=== PATIENT | male | born 1945 | race Caucasian/White ===

== ENCOUNTER 2016-08-28 13:56 | Emergency (ER) | payer MEDICARE, OTHER ==
[2016-08-28 14:33] LABS: BASOPHILS 0.1 % (0.0-2.0); EOSINOPHILS 1.8 % (0-7); HEMATOCRIT 45.7 % (42.0-54.0); HEMOGLOBIN 15.6 g/dL (13.5-17.5); IMMATURE GRANULOCYTES 0.2 % (0-5); LYMPHOCYTES 11.3 % (15-50); MCH 32.6 pg (26.0-34.0); MCHC 34.1 g/dL (31.0-37.0); MCV 95.6 fL (80.0-100.0); MEAN PLATELET VOLUME 10.4 fL (7.4-10.4); MONOCYTES 7.3 % (2-11); NEUTROPHILS 79.3 % (40-80); PLATELET COUNT 153 10x3/uL (130-400); RBC 4.78 10x6/uL (4.20-6.10); RDW 12.9 % (11.5-14.5)
[2016-08-28 14:47] LABS: ALKALINE PHOSPHATASE 64 U/L (46-116); ALT (SGPT) 30 U/L (10-68); CALC OSMOLALITY 285 mosm/kg (275-300); CALCIUM 8.8 mg/dL (8.5-10.1); CHLORIDE - SERUM 101 mmol/L (98-107); CREATININE - SERUM 1.6 mg/dL (0.6-1.3); GLUCOSE 122 mg/dL (74-106); POTASSIUM - SERUM 4.2 mmol/L (3.5-5.1); SODIUM 139 mmol/L (136-145); UREA NITROGEN 31 mg/dL (7-18); eGFR NON AFRICAN AMERICAN 45 mL/min (90-120)
[2016-08-28 14:59] LABS: CHOL - HDL RATIO 4.5 ratio (2.3-4.9); CHOLESTEROL, TOTAL 127 mg/dL (0-200); CKMB 1.1 U/L (0.0-3.6); CREATINE KINASE 143 UL (21-232); HDL CHOLESTEROL 28 mg/dL (32-96); LDL CHOLESTEROL 34 mg/dL (0-100); LDL-HDL RATIO 1.2 ratio (1.5-3.5); TRIGLYCERIDE 329 mg/dL (30-200); TROPONIN-I < 0.017 ng/mL (0.000-0.060)
== END 2016-08-28 16:00 | disposition home or self-care (01) ==
LOC: D.ER 13:56
PROVIDERS: Emergency Medicine
DX: R07.9 Chest pain, unspecified (principal); S37.009A Unspecified injury of unspecified kidney, initial encounter; X58.XXXA Exposure to other specified factors, initial encounter; Y93.89 Activity, other specified; Y92.89 Other specified places as the place of occurrence of the external cause; E86.0 Dehydration; R00.0 Tachycardia, unspecified

== ENCOUNTER 2019-07-03 07:16 | Inpatient (IN) | payer MEDICARE, OTHER ==
[2019-07-03] VITALS (14 sets, daily range): BP systolic 98–123; BP diastolic 60–97; BMI 33.2; BMI 34.2
[~2019-07-03] VITALS: Ht 182.9 cm; Wt 100.7 kg
--- NOTE | ~2019-07-03 | HEMODYNAMI ---
PATIENT:ARIES KHANNA MEDICAL RECORD: [id number] : 41 LOCATION:[facility] D.2304 ADMISSION DATE: 07/03/19 Generatedon:07/04/201916:43 Patient name: ARIES KHANNA Patient #: [id number] SSN: : 1945 Date of study: 07/04/2019 Page: Of Hemodynamic Procedure Report Patient Data Patient Demographics Procedure consent was obtained First Name: ARIES Gender: Male Last Name: CLEMENCIA : 1945 [facility] Initial: J Age: 74 year(s) Patient #: [id number] Race: Unknown Additional ID: [id number] Contact details [address]: [address] [place] [address] [address]ET State: [place] City: [place] Zip code: [address] Past Medical History Allergies Allergen Reaction Date Comments Reported Statins 07/04/2019 Admission Admission Data Admission Date: 07/03/2019 Admission Time: 8:53 Room #: D2304 Height (in.): 72 BSA: 2.35 (m2) Height (cm.): 182.88 BMI: 34.18 (kg/m2) Weight (lbs.): 252 Weight (kg.): 114.31 Procedure Procedure Types Cath Procedure Peripheral Cath Diagnostic Procedure [place] Peripheral Procedures Venography IVC/SVC Inferior Venacava Filter Procedure Description Procedure Date Procedure Date: 07/04/2019 Procedure Start Time: 16:32 Procedure Staff Name Function Frank Young MD Performing Physician Skylar Painter RT Athletic Director Siri Banegas RN Nurse Axel Yoder RT Scrub Procedure Data Cath Procedure Fluoroscopy Diagnostic fluoroscopy Total fluoroscopy Time: 0.9 time: 0.9 min min Diagnostic fluoroscopy Total fluoroscopy dose: 232 dose: 232 mGy mGy Contrast Material Contrast Material Type Amount (ml) Isovue 300 20 Procedure Medications Medication Administration Route Dosage Lidocaine 1% added to field 20 Heparin Flush Bag added to field 1 bags (1000units/500ml NS) Hemodynamics Rest BSA: 2.35 (m2) O2 Consumption: Estimated: 291.78 (ml/min) O2 Consumption indexed : Estimated:124.16 (ml/min/m) Heart Rate: 95 (bpm) Snapshots Pre Cath Intra NCS Post Cath Vital Signs Time Heart Resp SPO2 etCO2 NIBP (mmHg) Rhythm Pain Sedation Rate (ipm) (%) (mmHg) Status Level (bpm) 16:27:14 101 19 94 0 144/90(124) NSR 0 (11) 10(A) , No pain 16:31:26 93 19 95 0 135/88(105) NSR 0 (11) 10(A) , No pain 16:35:40 93 16 94 0 127/85(113) NSR 0 (11) 10(A) , No pain 16:39:50 93 22 96 0 136/86(101) NSR 0 (11) 10(A) , No pain Medications Time Medication Route Dose Verified Delivered Reason Notes Effe ctiveness by by 16:32:40 Lidocaine 1% added 20ml M J Long M J Long for local to vial MD QUIROZ anesthetic field 16:32:52 Heparin Flush added 1 M J Long M J Long used for Bag to bags MD QUIROZ procedure (1000units/500ml field NS) Procedure Log Time Note 16:02:46 Patient Height : 72 inches 16:02:51 Patient Weight : 252 lbs 16:03:19 Use device set IR Diagnostic 16:03:22 Tegaderm 4 x 4 ([id number]) opened to sterile field. 16:03:23 Sterile Angiographic Pack opened to sterile field. 16:03:25 Bag Decanter (2002S) opened to sterile field. 16:20:03 Time tracking: Regular hours (M-F 7:00 - 5:00) 16:20:12 Plan of Care:Hemodynamics will remain stable., Cardiac rhythm will remain stable., Comfort level will be maintained., Respiratory function will remain adequate., Patient/ family verbilizes understanding of procedure., Procedure tolerated without complication., Recovers from procedure without complications.. 16:20:20 Patient received from ICU to IR Alert and oriented. Tansferred to table in Supine position. 16:20:38 Signed procedure consent form obtained from patient. 16:20:45 H&P Date Dictated: 07/04/2019 Within 30 days and on chart.. 16:20:48 Pre-procedure instructions explained to patient. 16:20:49 Pre-op teaching completed and patient verbalized understanding. 16:20:52 Family in waiting room. 16:20:58 Patient NPO since Breakfast. 16:21:09 Patient allergic to Statins 16:21:20 Is the patient allergic to Iodine/contrast media? No. 16:21:56 Patient diabetic? Yes.borderline 16:22:14 - 16:22:17 ----Pre-sedation anethsthesia assessment.---- 16:22:21 Previous problem with sedation/anesthesia? No ? 16:22:25 Snore? Yes 16:22:27 Sleep apnea? Yes 16:22:30 Deviated septum? No 16:22:32 Opens mouth fully? Yes 16:22:34 Sticks out tongue? Yes 16:22:42 Airway obstruction? Yes PE 16:22:56 Dentures? Yes IN SECURE 16:23:44 IV patent on arrival in right hand with D5/.45%NaCl at KVO. 16:23:59 IV patent on arrival in left antecubital with D5/.45%NaCl at KVO. 16:24:13 Right groin area was prepped with chlora-prep and draped in sterile fashion 16:24:16 - 16:24:31 Micropuncture VSI 4FR kit opened to sterile field. 16:26:16 Vital chart was started 16:26:54 ECG and BP/O2 sat monitors applied to patient. 16::56 Baseline sample Acquired. 16:27:07 Baseline sample Acquired. 16:27:10 Full Disclosure recording started 16:27:21 Baseline sample Acquired. 16:30:11 Physician arrived 16:30:12 --------ALL STOP TIME OUT------ 16:30:13 Final Timeout: patient, procedure, and site verified with staff and physician. All members of the team are in agreement. 16:32:29 Fire Safety Assessment: A--An alcohol-based skin anteseptic being used preoperatively., C--Open oxygen or nitrous oxide is being used. 16:32:35 Procedure started. 16:32:40 Lidocaine 1% 20ml vial added to field was administered by Frank Young MD; for local anesthetic; Verbal order read back and verified. 16:32:41 Local anesthetic to right femoral vein with Lidocaine 1% by Frank Young MD.INITIAL ACCESS ONLY 16:32:52 Heparin Flush Bag (1000units/500ml NS) 1 bags added to field was administered by Frank Young MD; used for procedure; Verbal order read back and verified. 16:35:48 DOC .035 wire ([id number]) opened to sterile field. 16:37:33 Margaux Femoral IVC filter was placed below renal veins. 16:37:49 FILTER Margaux Vena Cava ([id number]) opened to sterile field. 16:37:59 Procedure ended.(Physican Out) 16:39:39 Fluoroscopy time 00.90 minutes. 16:39:45 Fluoroscopy dose: 232 mGy 16:39:45 Flurop Dose total: 232 16:39:49 Contrast amount:Isovue 300 20ml. 16:39:50 Procedure and supply charges have been captured, reviewed, submitted an d are correct. 16:43:13 Report given to ICU. 16:43:38 Vital chart was stopped Device Usage Item Name Manufacture Quantity Catalog Hospital Part Current [facility] l Lot# / Number Charge Number Stock Stock Serial# Code Tegaderm 4 x 3M 1 [id number] 4 ([id number]) Sterile Cardinal 1 [id number] 5 Angiographic Health Pack Bag Decanter [employer] 1 [id number] 5 () [employer] Micropuncture VSI VASCULAR 1 [id number] 5 VSI 4FR kit SOLUTIONS DOC .035 wire [employer] 1 [id number] 5 ([id number]) FILTER Margaux Bard 1 [id number] [id number] 5 Vena Cava ([id number]) Signature Audit Roy Stage Time Signature Unsigned Intra-Procedure 07/04/2019 Skylar Painter 4:43:34 PM RT(R) [facility] [address] [place] [address]
--- NOTE | ~2019-07-03 | HEMODYNAMI ---
PATIENT:ARIES KHANNA MEDICAL RECORD: [id number] : 41 [id number] ADMISSION DATE: 07/03/19 Generatedon:07/12/201915:09 Patient name: ARIES KHANNA Patient #: [id number] SSN: [id number] : 1945 Date of study: 07/05/2019 Page: Of Hemodynamic Procedure Report Patient Data Patient Demographics Procedure consent was obtained First Name: ARIES Gender: Male Last Name: CLEMENCIA : 1945 [facility] Initial: J Age: 74 year(s) Patient #: [id number] Race: SSN: [id number] Additional ID: [id number] Contact details Address: [address] [place] [address] street State: [place] City: [place] Zip code: [address] Past Medical History Allergies Allergen Reaction Date Comments Reported Statins 07/04/2019 Admission Admission Data Admission Date: 07/03/2019 Admission Time: 8:53 Arrival Date: 07/05/2019 Arrival Time: 0:00 Room #: D.2114 Insurance Payor: Medicare [facility] #: [id number] Height (in.): 72 BSA: 2.35 (m2) Height (cm.): 182.88 BMI: 34.18 (kg/m2) Weight (lbs.): 252 Weight (kg.): 114.31 Lab Results Lab Result Date: 07/05/2019 Lab Result Time: 0:00 Biochemistry Name Units Result Min Max BUN mg/dl 24 --(----)-* 7 18 Creatinine mg/dl 1.9 --(----)-* 0.6 1.3 eGFR ml/min 37 *-(----)-- 90 120 NONAFRICAN Troponin l ng/ml 2.036 --(----)-* 0 0.06 CBC Name Units Result Min Max Hematocrit % 37 *-(----)-- 42 54 Hemoglobin g/dl 12.6 -*(----)-- 13.5 17.5 Procedure Procedure Types Cath Procedure Diagnostic Procedure [facility] w/Coronaries FFR/IVUS FFR Initial Sedation Charges Moderate Sedation up to 15 minutes PCI Procedure Coronary Stent Coronary Stent Initial Hemochron ACT Test Procedure Description Procedure Date Procedure Date: 07/05/2019 Procedure Start Time: 8:21 Procedure End Time: 8:47 Procedure Staff Name Function Aldair Mehta RT Monitor Anna Crespo RN Nurse Ranjeet Plummer MD Performing Physician Mandy Cheney RT Scrub Corie Arpin RT Monitor Indication NSTEMI Procedure Data Cath Procedure Fluoroscopy Diagnostic fluoroscopy Total fluoroscopy Time: 5.4 time: 5.4 min min Diagnostic fluoroscopy Total fluoroscopy dose: 667 dose: 667 mGy mGy Contrast Material Contrast Material Type Amount (ml) Isovue 300 80 Entry Location Entry Primary Successful Side Size Upsize Upsize Entry Closure Succes sful Closure Location (Fr) 1 (Fr) 2 (Fr) Remarks Device Remarks Femoral Right 5 Fr 6 Fr Exoseal artery Short Estimated blood loss: 10 ml Diagnostic catheters Device Type Used For End Catheter Placement MULTIPACK Pigtail 5 Fr Procedure catheter MULTIPACK JL 4.0 5Fr Procedure catheter MULTIPACK 3DRC 5Fr Procedure catheter Procedure Complications No complications Procedure Medications Medication Administration Route Dosage Oxygen etCO2 Nasal cannula 3 l/min Lidocaine 2% added to field 20 Heparin Flush Bag added to field 2 bags (1000units/500ml NS) 0.9% NaCl I.V. 100 ml/hr Radial Cocktail added to field 1 syringe (Verapamil 2mg/Nitro 400mcg/Heparin 1500units) Fentanyl I.V. 50 mcg Lidocaine 2% added to field 20 Versed I.V. 1 mg Heparin Bolus I.V. 3000 units Fentanyl I.V. 50 mcg Versed I.V. 1 mg Hemodynamics Rest BSA: 2.35 (m2) HGB: 12.6 (g/dl) O2 Consumption: Estimated: 286.82 (ml/min) O2 Co nsumption indexed: Estimated:122.05 (ml/min/m) Heart Rate: 89 (bpm) Snapshots Pre Cath Intra NCS Post Cath Vital Signs Time Heart Resp SPO2 etCO2 NIBP (mmHg) Rhythm Pain Sedation Rate (ipm) (%) (mmHg) Status Level (bpm) 8:08:43 90 14 93 0 158/99(131) NSR 0 (11) 10(A) , No pain 8:16:49 89 14 90 0 155/113(127) NSR 0 (11) 10(A) , No pain 8:20:57 88 11 92 0 161/107(128) NSR 0 (11) 9(A) , No pain 8:26:12 94 12 94 0 151/111(128) NSR 0 (11) 9(A) , No pain 8:30:20 93 11 94 0 159/105(129) NSR 0 (11) 9(A) , No pain 8:34:30 92 11 93 0 156/103(136) NSR 0 (11) 9(A) , No pain 8:38:38 90 15 94 0 150/103(127) NSR 0 (11) 10(A) , No pain 8:44:56 95 14 94 0 132/92(112) NSR 0 (11) 10(A) , No pain Medications Time Medication Route Dose Verified Delivered Reason Note s Effectiveness by by 8:00:30 Oxygen etCO2 3 l/min Ranjeet Buffie used for Nasal Kavitha Crespo RN procedure cannula 8:05:37 Lidocaine 2% added 20ml Ranjeet Ranjeet for local to vial Kavitha Plummer MD anesthetic field 8:05:43 Heparin Flush added 2 bags Ranjeetashleigh Pollack used for Bag to Kavitha Plummer MD procedure (1000units/500ml field NS) 8:05:52 0.9% NaCl I.V. 100 Ranjeet Buffie Per physician ml/hr Kavitha Crespo RN 8:05:59 Lidocaine 2% added 20ml Ranjeet Ranjeet for local to vial Kavitha Plummer MD anesthetic field 8:13:11 Fentanyl I.V. 50 mcg Ranjeetashleigh Castillo for sedation Kavitha Crespo RN 8:13:23 Versed I.V. 1 mg Ranjeetashleigh Pollack for sedation Kavitha Plummer MD 8:17:52 Radial Cocktail added 1 Ranjeet Buffie for not used (Verapamil to syringe Kavitha Crespo RN vasodilation 2mg/Nitro field 400mcg/Hepari 8:25:32 Fentanyl I.V. 50 mcg Ranjeet Pollack for sedation Kavitha Plummer MD 8:25:46 Versed I.V. 1 mg Ranjeet Ranjeet for sedation Kavitha Plummer MD 8:37:09 Heparin Bolus I.V. 3000 Ranjeet Pollack for veri fied units Kavitha Plummer MD anticoagulation with dr plummer Procedure Log Time Note 7:40:54 Patient Weight : 252 lbs 7:40:54 Patient Height : 72 inches 7:41:00 Diagnostic Cath Status : Urgent 7:41:41 Indication : NSTEMI 7:42:02 Procedure Status Urgent Heart Cath (IP). 7:42:06 Anna Crespo RN sent for patient. Start room use. 7:42:11 Time tracking: Regular hours (M-F 7:00 - 5:00) 7:42:20 Plan of Care:Hemodynamics will remain stable., Cardiac rhythm will remain stable., Comfort level will be maintained., Respiratory function will remain adequate., Patient/ family verbilizes understanding of procedure., Procedure tolerated without complication., Recovers from procedure without complications.. 7:45:01 Informed consent obtained and on chart 7:47:01 Arrival Date: 07/05/2019 12:00:00 AM 7:47:25 Insurance Payor : Medicare 7:48:42 Lab Result : eGFR NONAFRICAN 37 ml/min 7:48:42 Lab Result : Hemoglobin 12.6 g/dl 7:48:42 Lab Result : Hematocrit 37 % 7:48:42 Lab Result : BUN 24 mg/dl 7:48:42 Lab Result : Creatinine 1.9 mg/dl 7:48:42 Lab Result : Troponin l 2.036 ng/ml 7:51:50 Risk of Mortality: 0.9 7:51:57 Risk of blood transfusion: 1.2 7:52:03 Risk of JUAN: 7.2 7:56:22 Patient received from ICU to CCL 1 Alert and oriented. Tansferred to table in Supine position. 8:00:30 Oxygen 3 l/min etCO2 Nasal cannula was administered by Anna Crespo RN; used for procedure; Verbal order read back and verified. 8:05:37 Lidocaine 2% 20ml vial added to field was administered by Ranjeet Plummer MD; for local anesthetic; Verbal order read back and verified. 8:05:43 Heparin Flush Bag (1000units/500ml NS) 2 bags added to field was administered by Ranjeet Plummer MD; used for procedure; Verbal order read back and verified. 8:05:52 0.9% NaCl 100 ml/hr I.V. was administered by Anna Crespo RN; Per physician; Verbal order read back and verified. 8:05:59 Lidocaine 2% 20ml vial added to field was administered by Ranjeet Plummer MD; for local anesthetic; Verbal order read back and verified. 8:07:24 Warm blankets applied, and fidelia hugger turned on for patient comfort. 8:07:25 ECG and BP/O2 sat monitors applied to patient. 8:07:25 Correct patient and procedure confirmed by team. 8:07:27 Vital chart was started 8:07:29 Baseline sample Acquired. 8:07:32 Full Disclosure recording started 8:07:32 Rhythm: sinus rhythm 8:07:35 Pre-procedure instructions explained to patient. 8:07:35 H&P Date Dictated: 07/05/2019 New H&P dictated by physician.. 8:07:36 Pre-op teaching completed and patient verbalized understanding. 8:07:38 Family unavailable. 8:07:40 Patient NPO since Midnight. 8:07:55 Is the patient allergic to Iodine/contrast media? No. 8:07:56 Is patient on blood thinner?Yes 8:08:00 ACC The patient was administered the following blood thiners within the last 24 hours: ACCPlavix 8:08:06 Patient diabetic? Yes. 8:08:28 PATIENT SAYS STARTED INSULIN . 8:08:39 If diabetic: On Metformin? No 8:08:42 Previous problem with sedation/anesthesia? No ? 8:08:43 Snore? Yes 8:08:45 Deviated septum? No 8:08:45 Sleep apnea? No 8:08:46 Opens mouth fully? Yes 8:08:47 Sticks out tongue? Yes 8:08:54 Airway obstruction? Yes ASTHMA A KID 8:09:00 Dentures? Yes ? 8:09:03 Pre procedure: left dorsailis pedis pulse 1+ Palpable, but thready & weak; easily obliterated 8:09:06 Modified Pipo's test Ulnar < 7 seconds 8:09:08 Patient pain scale 0/10 ?. 8:09:16 IV patent on arrival in left antecubital with 0.9% NaCl at [facility]. 8:09:23 Stress Test: no; N/A ? 8:09:25 Lab results completed and on chart. 8:09:30 Right Radial & Left Groin area was prepped with chlora-prep and draped in sterile fashion 8:09:31 Sharps counted by scrub and verified by R.N. 8:09:31 Alarms reviewed by R. N. 8:09:33 Use device set Radial Dx or PCI 8:09:34 ACIST Syringe (04531) opened to sterile field. 8:09:36 ACIST Manifold (97922) opened to sterile field. 8:09:36 ACIST Hand Control (14499) opened to sterile field. 8:09:36 Bag Decanter (2002S) opened to sterile field. 8:09:37 Tegaderm 4 x 4 (1626W) opened to sterile field. 8:09:38 Medline Cath Pack ([id number]) opened to sterile field. 8:09:39 MBrace Wrist Support ([id number]) opened to sterile field. 8:09:42 EMERALD Guide Wire (039-688) opened to sterile field. 8:12:33 --------ALL STOP TIME OUT------ 8:12:37 Final Timeout: patient, procedure, and site verified with staff and physician. All members of the team are in agreement. 8:12:39 Right Radial & Left Groin site verified by team. 8:12:41 Fire Safety Assessment: A--An alcohol-based skin anteseptic being used preoperatively., C--Open oxygen or nitrous oxide is being used., D--An ESU, laser, or fiber-optic light is being used. 8:12:44 Physical assessment completed. ASA score P 2 - A patient with mild systemic disease as per Ranjeet Plummer MD. 8:12:48 3b) 30-44 Moderately reduced kidney function. 8:12:50 Maximum allowable contrast dose (3.7 X eGFR X 0.75)103 ml. 8:12:53 Sedation plan: IV Moderate Sedation Medication:Versed, Fentanyl 8:13:11 Fentanyl 50 mcg I.V. was administered by Anna Crespo RN; for sedation; Verbal order read back and verified. 8:13:23 Versed 1 mg I.V. was administered by Ranjeet Plummer MD; for sedation; Verbal order read back and verified. 8:17:13 Procedure started. 8:17:31 Use device set Multipack Set 8:17:52 Radial Cocktail (Verapamil 2mg/Nitro 400mcg/Heparin 1500units) 1 syringe added to field was administered by Anna Crespo RN; for vasodilation; not used Verbal order read back and verified. 8:18:02 DIAGNOSTIC Multipack 5Fr catheter set ([id number]) opened to sterile field. 8:21:23 Local anesthetic to right radial artery with Lidocaine 2% by Ranjeet Plummer MD.INITIAL ACCESS ONLY 8:22:25 Unable to advanced wire into radial artery, moving to femoral approach.. 8:22:43 Local anesthetic to left femerol artery with Lidocaine 2% by Ranjeet Plummer MD.ADDITIONAL ACCESS 8:22:51 A 5 Fr sheath was inserted into the Right Femoral artery 8:22:58 A MULTIPACK Pigtail 5 Fr catheter was advanced over the wire and used for Procedure. 8:23:02 LV angiography performed. 8:23:03 LV gram done using LAYNE 8:23:08 EF : 60 % 8:23:19 Injector settings: Ml/sec: 10, Volume: 20, 8:23:24 Catheter removed. 8:23:29 A MULTIPACK JL 4.0 5Fr catheter was advanced over the wire and used for Procedure. 8:23:35 LCA angiography performed. 8:23:40 Catheter removed. 8:23:45 A MULTIPACK 3DRC 5Fr catheter was advanced over the wire and used for Procedure. 8:23:50 RCA angiography performed. 8:23:52 ACCDominant side:Right 8:23:53 Catheter removed. 8:23:56 Use device set TAU PCI 8:24:09 [place] Verrata Plus pressure wire (77086T) opened to sterile field. 8:24:15 INFLATOR Merit BasixCompak (LV6107) opened to sterile field. 8:25:32 Fentanyl 50 mcg I.V. was administered by Ranjeet Plummer MD; for sedation; Verbal order read back and verified. 8:25:46 Versed 1 mg I.V. was administered by Ranjeet Plummer MD; for sedation; Verbal order read back and verified. 8:31:40 SHEATH 5FR [place] (DTJ014) opened to sterile field. 8:32:06 UNABLE TO UP SIZE TO 6FR SHEATH DUE TO PT ANATOMY.. 8:32:18 NEW 5FR IN WITH AN AMPLATZ WIRE. 8:32:34 AMPLATZ Super Stiff 75cm wire ([id number]) opened to sterile field. 8:32:46 GUIDE 5FR EBU 4.0 catheter ([id number]) opened to sterile field. 8:33:41 5 Fr EBU 4 guide catheter was inserted over the wire 8:34:39 FFR/IFR wire advanced. 8:35:44 Wire advanced across lesion. 8:35:52 mCirc lesion measured at 0.89 with IFR 8:37:05 ACC Pre-intervention CARYN Flow is 3. 8:37:09 Heparin Bolus 3000 units I.V. was administered by Ranjeet Plummer MD; for anticoagulation; verified with dr plummer Verbal order read back and verified. 8:37:40 Pre PCI Site: [place] pCirc has 70% stenosis. 8:38:28 Place stent Inflation Number: 1 A INTEGRITY RX 3.0 x 15 stent ([id number]) was prepped and advanced across the Prox CX 70. The stent was deployed at 11 BENJIE for 0:10 (min:sec) 0. 8:38:39 Stent catheter was removed intact over wire. 8:38:41 Wire removed. 8:38:42 Guide catheter removed. 8:38:58 EXOSEAL 5Fr (EX500) opened to sterile field. 8:39:15 Sheath removed intact; hemostasis achieved with Exoseal to the Right Femoral artery. 8:39:15 Sheath upsized to a 6 Fr Short. 8:39:18 Procedure ended.(Physican Out) 8:42:18 Fluoroscopy time 05.40 minutes. 8:42:22 Fluoroscopy dose: 667 mGy 8:42:22 Flurop Dose total: 667 8:42:30 Dose Area Product 41599 mGy/cm. 8:42:37 Contrast amount:Isovue 300 80ml. 8:42:40 Maximum allowable dose exceeded? No. 8:42:41 Sharps counted by scrub and verified by R.N. 8:42:42 Insertion/operative site no bleeding no hematoma. 8:42:51 Post-op/insertion site Left Femoral artery dressed using a 4 x 4 and Tegaderm. 8:42:55 Post Procedure Pulses reassessed and unchanged 8:42:59 Post-procedure physical assessment completed. ASA score P 2 - A patient with mild systemic disease as per Ranjeet Plummer MD. 8:43:01 Post procedure rhythm: unchanged. 8:43:04 Estimated blood loss: 10 ml 8:43:08 Post procedure instruction explained to patient.Patient verbalizes understanding. 8:43:09 Patient needs reinforcement of post procedure teaching. 8:43:47 Procedure type changed to Cath procedure, Diagnostic procedure, LHC, [facility] w/Coronaries, FFR/IVUS, FFR Initial, Sedation Charges, Moderate Sedation up to 15 minutes, PCI procedure, Coronary Stent, Coronary Stent Initial, Hemochron ACT Test 8:43:48 Procedure and supply charges have been captured, reviewed, submitted and are correct. 8:43:51 Procedure Complication : No complications 8:44:32 SHEATH 5FR [place] (HNV465) opened to sterile field. 8:47:06 Vital chart was stopped 8:47:08 [facility] Findings: MVD- PCI performed (see procedure note) 8:47:09 Operative report dictated upon procedure completion. 8:47:10 See physician's report for complete and final results. 8:47:22 Report given to ICU. 8:47:27 Patient transfered to ICU with Bed. 8:47:29 Full Disclosure recording stopped 8:47:29 Procedure ended. 8:47:37 End room use (Document Last) 8:47:40 ACT drawn and resulted at 298 seconds. (normal therapeutic range 180-240 seconds). Intervention Summary Intervention Notes Time ActionType Lesion and Equipment Action# Pressure Duration Attributes Used 8:38:28 Place stent Prox CX INTEGRITY RX 1 11 00:10 3.0 x 15 stent ([id number]) Device Usage Item Name Manufacture Quantity Catalog Hospital Part Current Min imal Lot# / Number Charge Number Stock Stock Serial# Code ACIST Acist 1 50371 585688 842440 152401 20 Syringe Medical (87352) Systems Inc Bag Decanter Microtek 1 181946 51865 200474 5 () Medical Inc. ACIST Hand Acist 1 31710 215273 097184 813527 5 Control Medical (76747) Systems Inc ACIST Acist 1 47933 413334 982600 515294 5 Manifold Medical (83393) Systems Inc Tegaderm 4 x 3M 1 1626W 335940 159858 563624 5 4 (1626W) Medline Cath Medline 1 [id number] 539691 43630 973131 5 Pack ([id number]) MBrace Wrist Advanced 1 140-0250-00 033198 41300 543835 5 Support Vascular ([id number]) Dynamics EMERALD Cardinal 1 502-455 914570 754716 015278 5 Guide Wire Health (502-455) DIAGNOSTIC Cardinal 1 DP2593 218567 89374 975368 30 Multipack Health 5Fr catheter set (RP5755) MULTIPACK Cardinal 1 114564 5 Pigtail 5 Fr Health catheter MULTIPACK JL Cardinal 1 822590 5 4.0 5Fr Health catheter MULTIPACK Cardinal 1 686344 5 3DRC 5Fr Health catheter [place] 1 65038P 105991 072200624 517392 5 Verrata Plus pressure wire (28057M) INFLATOR [place] 1 MQ2547 056551 058736 827659 15 [place] BasixCompak (XJ5067) SHEATH 5FR [place] 2 PFN765 837739 692413 454034 5 [place] (DPO174) AMPLATZ [place] 1 [id number] 765669 642518 986782 5 Super Stiff Scientific 75cm wire ([id number]) GUIDE 5FR Medtronic 1 [id number] 225526 530195 849971 1 EBU 4.0 catheter (UX3HPC62) INTEGRITY RX Medtronic 1 [id number] 452061 240886 353837 5 [id number] 3.0 x 15 stent ([id number]) EXOSEAL 5Fr Cardinal 1 EX500 985758 326240 043858 10 (EX500) Health Signature Audit [place] Stage Time Signature Unsigned Intra-Procedure 07/05/2019 Aldair Mehta 8:48:14 AM RT(R) Intra-Procedure 07/05/2019 Anna Crespo RN 8:48:40 AM Intra-Procedure 07/05/2019 Ranjeet Mehta RT(R) 8:49:11 AM 07/12/2019 3:08:55 PM Intra-Procedure 07/12/2019 Ranjeet Plummer 3:09:[address] [place] [address]
[2019-07-03] MEDS ORDERED: FENOFIBRATE134 MG PO (07:20)
[2019-07-03] MEDS ORDERED: VOLTAREN100 GM TOPICAL (07:20)
[2019-07-03] MEDS ORDERED: GARLIC (07:21)
[2019-07-03] MEDS ORDERED: GABAPENTIN100 MG PO (07:21)
[2019-07-03] MEDS ORDERED: FOLIC ACID1 MG PO (07:21)
[2019-07-03] MEDS ORDERED: MULTI-DAY VITAM1 TAB PO (07:22)
[2019-07-03] MEDS ORDERED: IPRATROPIUM BRO30 M1 NASAL (07:22)
[2019-07-03] MEDS ORDERED: LOSARTAN-HCTZ1 EAC1 PO (07:22)
[2019-07-03] MEDS ORDERED: OMEGA-3100 MG PO (07:22)
[2019-07-03] MEDS ORDERED: OMEPRAZOLE20 M1 PO (07:23)
[2019-07-03 08:05] LABS: CALC OSMOLALITY 285 mosm/kg (275-300); CALCIUM 8.8 mg/dL (8.5-10.1); CARBON DIOXIDE 19.7 mmol/L (21.0-32.0); CHLORIDE - SERUM 101 mmol/L (98-107); CREATININE - SERUM 1.7 mg/dL (0.6-1.3); POTASSIUM - SERUM 3.5 mmol/L (3.5-5.1); SODIUM 137 mmol/L (136-145); UREA NITROGEN 19 mg/dL (7-18); eGFR NON AFRICAN AMERICAN 42 mL/min (90-120)
[2019-07-03 08:06] LABS: BASOPHILS 0.1 % (0-2); EOSINOPHILS 1.5 % (0-7); HEMATOCRIT 42.6 % (42.0-54.0); HEMOGLOBIN 14.6 g/dL (13.5-17.5); IMMATURE GRANULOCYTES 0.2 % (0-5); LYMPHOCYTES 16.9 % (15-50); MCH 32.7 pg (26.0-34.0); MCHC 34.3 g/dL (31.0-37.0); MCV 95.3 fL (80.0-100.0); MEAN PLATELET VOLUME 9.8 fL (7.4-10.4); MONOCYTES 4.1 % (2-11); NEUTROPHILS 77.2 % (40-80); RBC 4.47 10x6/uL (4.20-6.10); WBC 8.5 10x3/uL (4.8-10.8)
[2019-07-03 08:07] LABS: GLUCOSE 271 mg/dL (74-106)
[2019-07-03 08:11] LABS: PLATELET COUNT 97 10x3/uL (130-400)
[2019-07-03 08:12] LABS: APTT 35.1 SECONDS (22.8-39.4); INR 1.15 (0.85-1.17); PROTIME 14.2 SECONDS (11.6-15.0)
[2019-07-03 08:26] LABS: ALBUMIN 3.4 g/dL (3.4-5.0); ALKALINE PHOSPHATASE 69 U/L (46-116); ALT (SGPT) 80 U/L (10-68); BILIRUBIN - TOTAL 1.47 mg/dL (0.2-1.3); CKMB 2.4 U/L (0.0-3.6); CREATINE KINASE 181 UL (21-232); PROTEIN - SERUM 6.9 g/dL (6.4-8.2)
[2019-07-03 08:28] LABS: TROPONIN-I 0.316 ng/mL (0.000-0.060)
[2019-07-03 09:35] LABS: APPEARANCE HAZY (CLEAR); BILIRUBIN NEGATIVE (NEGATIVE); COLOR YELLOW (YELLOW); GLUCOSE NEGATIVE (NEGATIVE); KETONE NEGATIVE (NEGATIVE); NITRITE NEGATIVE (NEGATIVE); PROTEIN 1+ mg/dL (NEGATIVE); SPECIFIC GRAVITY 1.015 (1.005-1.020); UROBILINOGEN NORMAL (NORMAL)
[2019-07-03 09:40] LABS: BACTERIA FEW /hpf (NEGATIVE); EPITHELIAL CELLS RARE /hpf (0-5); MUCUS <1+ /lpf (NONE SEEN); RED CELLS - URINE RARE /hpf (0-5); WHITE CELLS - URINE NSEEN /hpf (NEGATIVE)
[2019-07-03 10:01] LABS: PLATELET ESTIMATE DECREASED
[2019-07-03 10:02] LABS: ROULEAUX OCC
--- NOTE | 2019-07-03 11:25 | MORECARE ---
CASE MANAGEMENT DISCHARGE SUMMARY PATIENT: ARIES KHANNA UNIT: [id number] ADM DATE: 07/03/19 AGE: 74 : 41 SEX: M ROOM/BED: D.2304 AUTHOR: SHABNAM,DOC PHYSICIAN: REFERRING PHYSICIAN: JUVENTINO ARENAS MD DATE OF SERVICE: 07/03/19 Discharge Plan Patient Name: ARIES KHANNA Facility: [facility]:[place] : 1945 Planned Disposition: Home Anticipated Discharge Date: 07/05/19 Discharge Date: Expected LOS: 2 Initial Reviewer: [email or web address] Initial Review Date: 07/03/2019 Generated: 07/03/19 12:24 pm DCP- Discharge Planning Updated by [email or web address]: Martha Sin on 07/03/19 10:[address] DC PLAN: Return home with independently. ANTICIPATED DC NEEDS: Denied known dc needs in ER. CM met with patient and his to complete initial dc planning assessment. CM educated them on the CM role and verbal consent given by patient to complete assessment. CM verified patient's address, phone number, and emergency contact phone numbers. Patient lives at home with his . He reports he is independent in his care at home. At discharge patient plans to return home with his and feels this is a safe discharge. CM discussed availability of home health, rehab services, and medical equipment. Patient denied known discharge needs at this time. Transportation provider at discharge will be his . CM will continue to follow and will assist as needed with dc plans/needs. Martha Sin RN, [facility] DCPIA - Discharge Planning Initial Assessment Updated by [email or web address]: Martha Sin on 07/03/19 11:21 am * Is the patient Alert and Oriented? Yes * How many steps to enter\exit or inside your home? * PCP Dr. Edwin Miranda * [facility] [address] * Preadmission Environment Home with Family * ADLs Independent * Equipment Cane CPAP Rolling Walker * List name and contact numbers for known caregivers / representatives who currently or will assist patient after discharge: Dwight Khanna - [facility] - [phone] * Verbal permission to speak to the caregivers and representatives has been obtained from the patient. Yes * Additional services required to return to the preadmission environment? No * Can the patient safely return to the preadmission environment? Yes * Has this patient been hospitalized within the prior 30 days at any hospital? No Patient Name: ARIES KHANNA Page 00531 at 1125 All edits/amendments must be made on the electronic document DICTATION DATE: 07/03/191123 [facility] TECH: CORNELIO 07/03/19 1124 RPT#: [id number] DC DATE: STATUS: ADM IN [facility] [address] [place] [address] END OF REPORT
--- NOTE | 2019-07-03 12:07 | NUR ---
PT'S ACCURATE WEIGHT IS 252.2 LBS BY STANDING SCALE
[2019-07-03 12:17] LABS: CKMB 4.8 U/L (0.0-3.6); CREATINE KINASE 182 UL (21-232)
[2019-07-03 12:20] LABS: TROPONIN-I 1.188 ng/mL (0.000-0.060)
--- NOTE | 2019-07-03 12:45 | NUR ---
PT ARRIVED TO UNIT AROUND 1235 VIA STRETCHER. PLACED ON 4L 02 IV NC. SOB ON EXERTION NOTED. 22G PIV RIGHT HAND, 20 G PIV TO LAC. PROTONIX INFUSING AT 10ML/HR. CONNECTED TO ICU MONITOR. NO FEVER NOTED. HR 120 BP 95/76. BRUISING NOTED TO L AC. SAFETY MEASURES IN PLACE. WILL CONTINUE TO MONITOR.
--- NOTE | 2019-07-03 13:55 | NUR ---
SPOKE WITH DR. CHRISTINE. WILL NOT BE TAKING PATIENT TO POULTRY DRESSER TODAY. OKAY FOR PT TO EAT.
--- NOTE | 2019-07-03 17:52 | NUR ---
DR. ARENAS AT BEDSIDE. FAMILY AT BEDSIDE. WILL CONTINUE TO MONITOR.
--- NOTE | 2019-07-03 18:15 | NUR ---
PULLED UP IN BED FOR COMFORT. MEAL TRAY SET UP. SPOUSE WILL BRING CPAP FROM HOME FOR PT TO USE.
--- NOTE | 2019-07-03 18:41 | NUR ---
NOTIFIED OF CONSULT.
[2019-07-03 18:47] LABS: CKMB 6.7 U/L (0.0-3.6); CREATINE KINASE 207 UL (21-232)
[2019-07-03 18:50] LABS: TROPONIN-I 2.036 ng/mL (0.000-0.060)
[2019-07-03 22:41] LABS: MAGNESIUM - SERUM 1.7 mg/dL (1.8-2.4)
[2019-07-03 22:44] LABS: POTASSIUM - SERUM 4.3 mmol/L (3.5-5.1)
[2019-07-04] VITALS (24 sets, daily range): BP systolic 95–151; BP diastolic 74–98; Ht 182.9 cm; Wt 100.7 kg
--- NOTE | 2019-07-04 02:00 | NUR ---
PATIENT AWAKE WHEN ENTERED ROOM AND STATES HE IS NOT SLEEPING AT ALL. PATIENT DECLINES WANTING NURSE TO CALL PHYSICIAN FOR SLEEP AID. CALL LIGHT WITHIN REACH. PATIENT STATES HE FEELS LIKE HE IS GOING TO PASS OUT WHEN HE COUGHS. SPO2 97-100%. RESP TACHY AND SHALLOW. ENCOURAGED TO TAKE DEEP BREATHS THROUGH HIS NOSE AND SLOW BREATHING DOWN. PATIENT DENIES ANY NEEDS AT THIS TIME.
--- NOTE | 2019-07-04 03:05 | NUR ---
PATIENT PRESSED CALL LIGHT STATES HE THINKS HE PASSED OUT. NO CHANGES IN CM OR SPO2. RESP LABORED PATIENT IS ANXIOUS. STATES HE "FEELS LIKE HE DID THIS AM WHEN HE HAD HIS HEART ATTACK". STAYED IN ROOM WITH PATIENT AND ENCOURAGED TO SLOW BREATHING DOWN. SPO2 97%. CALL LIGHT WITHIN REACH, BED IN LOW POSITION.
[2019-07-04 05:18] LABS: MAGNESIUM - SERUM 1.8 mg/dL (1.8-2.4); PHOSPHOROUS 3.5 mg/dL (2.5-4.9)
[2019-07-04 06:22] LABS: ANION GAP 15.7 mmol/L (8-16); CALCIUM 8.5 mg/dL (8.5-10.1); CARBON DIOXIDE 24.3 mmol/L (21.0-32.0); CREATININE - SERUM 1.9 mg/dL (0.6-1.3)
--- NOTE | 2019-07-04 07:00 | NUR ---
REC'D REPORT AND RESUMED CARE, BIPAP IN USE AT 50% FIO2, SHOWING ST ON MONITOR, OTHER VSS, DENIES PAIN, ASSESSMENT COMPLETED PER FLOWSHEET, CALL LIGHT IN REACH, VOICES NO NEEDS AT THIS TIME
--- NOTE | 2019-07-04 09:00 | NUR ---
OFF BIPAP, HFNC AT 6L IN USE, MORNING MEDICATIONS GIVEN PER AUG, HELD HTZ BP IN THE 110'S, WILL CONTINUE WITH POC
--- NOTE | 2019-07-04 11:00 | NUR ---
RESTING WITH NO SIGNS OF DISTRESS, CONTINUES ST ON MONITOR, WITH SHALLOW BREATHING, DENIES PAIN, CALL LIGHT IN REACH, NO NEEDS A THIS TIME
--- NOTE | 2019-07-04 11:34 | NUR ---
C/O OF NAUSEA, ZOFRAN 4MG IVP GIVEN PER PRN MAR ORDER
--- NOTE | 2019-07-04 11:51 | NUR ---
LUNCH TRAY TO BEDSIDE, INDEPENDENT WITH SET UPA ND EATING
--- NOTE | 2019-07-04 13:30 | NUR ---
B/L LOWER EXTREMITY DOPPLER COMPLETED AT BEDSIDE
--- NOTE | 2019-07-04 13:45 | NUR ---
PC TO IR, SPOKE WITH DEJON,NOTIFIED RE: NEED FOR IVC FILTER, STATED HE WOULD NOTIFY DRDmitry AND WILL LET US KNOW WHEN PROCEDURE CAN BE COMPLETED
--- NOTE | 2019-07-04 17:00 | NUR ---
BACK FROM IR, AAO, VSS, RIGHT GROIN DITH CDI DRESSING, NO ERYTHEM OR BINA TMA NOTED, DISUSSED WITH PATIENT AND FAMILY THAT HE WILL HAVE TO LAY FLAT FOR 2 HOURS AND AFTER HE WILL NEED TO BE AT 30 DEGREES FOR 2 HOURS
--- NOTE | 2019-07-04 17:21 | NUR ---
FSBS 121 NO INTERVENTION PER S/S
--- NOTE | 2019-07-04 19:15 | NUR ---
PATIENT RESTING QUIELTY. SHIFT ASSESSMENT COMPLETE. CALL LIGHT WITHIN REACH, BED IN LOW POSITION. PATIENT DENIES ANY PAIN.
--- NOTE | 2019-07-04 21:10 | NUR ---
FAMILY AT BEDSIDE REQUESTING TIME FOR PATIENTS HEART CATH TOMORROW. SURGERY LIST SHOWS PATIENT TO FOLLOW SCHEDULED PATIENT PER SOLAR THERMAL INSTALLER. PATIENT DENIES ANY OTHER NEEDS AT THIS TIME. CALL LIGHT WITHIN REACH, BED IN LOW POSITION. GROIN SITE WITHOUT BLEEDING OR HEMATOMA NOTED.
--- NOTE | 2019-07-04 23:00 | NUR ---
PATIENT SLEEPING AROUSED EASILY TO VERBAL STIMULI. PATIENT REASSESSMENT COMPLETE. CALL LIGHT WITHIN REACH, BED IN LOW POSITION. NO CHANGES NOTED AT THIS TIME.
[2019-07-05] VITALS (22 sets, daily range): BP systolic 109–148; BP diastolic 79–115
--- NOTE | 2019-07-05 01:15 | NUR ---
PATIENT AWAKE DENIES ANY CHANGES OR NEEDS AT THIS TIME. CALL LIGHT WITHIN REACH, BED IN LOW POSITION.
--- NOTE | 2019-07-05 03:05 | NUR ---
REASSESSMENT COMPLETE. NO CHANGES IN PATIENT CONDITION, WILL CONTINUE TO MONITOR. CALL LIGHT WITHIN REACH, BED IN LOW POSITION.
[2019-07-05 04:24] LABS: BASOPHILS 0.3 % (0-2); EOSINOPHILS 3.6 % (0-7); HEMATOCRIT 39.9 % (42.0-54.0); LYMPHOCYTES 24.7 % (15-50); MCH 31.7 pg (26.0-34.0); MCHC 32.6 g/dL (31.0-37.0); MEAN PLATELET VOLUME 10.3 fL (7.4-10.4); MONOCYTES 8.9 % (2-11); NEUTROPHILS 62.5 % (40-80); RDW 14.1 % (11.5-14.5)
[2019-07-05 04:46] LABS: ALBUMIN 3.1 g/dL (3.4-5.0); BILIRUBIN - TOTAL 1.01 mg/dL (0.2-1.3); CALCIUM 8.6 mg/dL (8.5-10.1); CARBON DIOXIDE 27.1 mmol/L (21.0-32.0); CREATININE - SERUM 1.7 mg/dL (0.6-1.3); MAGNESIUM - SERUM 1.8 mg/dL (1.8-2.4); PHOSPHOROUS 3.1 mg/dL (2.5-4.9); POTASSIUM - SERUM 4.1 mmol/L (3.5-5.1); PROTEIN - SERUM 6.4 g/dL (6.4-8.2)
[2019-07-05 04:51] LABS: MCV 97.3 fL (80.0-100.0); PLATELET COUNT 125 10x3/uL (130-400); WBC 6.2 10x3/uL (4.8-10.8)
--- NOTE | 2019-07-05 07:00 | NUR ---
REC'D REPORT AND RESUMED CARE, AAO, VSS, DENIES PAIN, CALL LIGHT IN REACH, UP WATCHING TV, ASSESSMENT COMPLETED PER FLOWSHEET, NO ACUTE CHANGE FROM PREVIOUS, NO NEEDS AT THIS TIME
--- NOTE | 2019-07-05 07:40 | NUR ---
TO CHIMNEY MECHANIC VIA BED WITH HOSPITAL STAFF X2, AAO,
--- NOTE | 2019-07-05 13:05 | NUR ---
Nutrition follow-up: Diet: Consistent CHO mechanical soft PO Intake 100% x 2 meals Labs reviewed Wt: 252# RDN following.
--- NOTE | 2019-07-05 19:15 | NUR ---
SHIFT ASSESSMENT COMPLETE. PATIENT DENIES ANY NEEDS AT THIS TIME. CALL LIGHT WITHIN REACH, BED IN LOW POSITION.
--- NOTE | 2019-07-05 21:16 | NUR ---
PM MEDS GIVEN PER MD ORDER. PATIENTS L GROIN IS SOFT TO PALPATION, BRUISING NOTED. CALL LIGHT WITHIN REACH, BED IN LOW POSITION.
--- NOTE | 2019-07-05 23:00 | NUR ---
REASSESSMENT COMPLETE. PATIENT IS SLEEPING WITHOUT DISTRESS, AND AROUSES EASILY TO VERBAL STIMULI. IV INTACT WITHOUT REDNESS OR EDEMA NOTED. CALL LIGHT WITHIN REACH, BED IN LOW POSITION.
[2019-07-06] VITALS (13 sets, daily range): BP systolic 109–165; BP diastolic 78–96
--- NOTE | 2019-07-06 01:00 | NUR ---
PATIENT IS SLEEPING WITH NO CHANGES IN CONDITION AT THIS TIME. CALL LIGHT WITHIN REACH, BED IN LOW POSITION.
[2019-07-06 05:04] LABS: BASOPHILS 0.4 % (0-2); EOSINOPHILS 3.8 % (0-7); HEMATOCRIT 37.2 % (42.0-54.0); IMMATURE GRANULOCYTES 0.2 % (0-5); LYMPHOCYTES 24.3 % (15-50); MCH 31.7 pg (26.0-34.0); MCHC 32.3 g/dL (31.0-37.0); MCV 98.2 fL (80.0-100.0); MEAN PLATELET VOLUME 10.3 fL (7.4-10.4); MONOCYTES 8.1 % (2-11); NEUTROPHILS 63.2 % (40-80); PLATELET COUNT 128 10x3/uL (130-400); RBC 3.79 10x6/uL (4.20-6.10); RDW 14.2 % (11.5-14.5); WBC 5.6 10x3/uL (4.8-10.8)
[2019-07-06 05:24] LABS: ALBUMIN 2.9 g/dL (3.4-5.0); ANION GAP 13.8 mmol/L (8-16); BILIRUBIN - TOTAL 0.85 mg/dL (0.2-1.3); CALCIUM 8.1 mg/dL (8.5-10.1); CARBON DIOXIDE 27.2 mmol/L (21.0-32.0); CREATININE - SERUM 1.6 mg/dL (0.6-1.3); MAGNESIUM - SERUM 1.8 mg/dL (1.8-2.4); PHOSPHOROUS 2.9 mg/dL (2.5-4.9); PROTEIN - SERUM 6.2 g/dL (6.4-8.2)
--- NOTE | 2019-07-06 07:10 | NUR ---
REPORT RECEIVED. PT SITTING UP IN CHAIR. PT HAS PERIPHERAL IVS TO RIGHT HAND AND LEFT AC. IVC FILTER PLACED ANGELA WITH SMALL BRUISE TO RIGHT GROIN WHERE THEY WENT IN. PT HAD STENT YESTERDAY WHERE THEY WENT THROUGH LEFT GROIN THAT IS VERY BRUISED, BUT SOFT. PT HAD HIS CHG BATH DURING THE NIGHT. HE IS ALSO FSBS ACHS. PT HAS NO COMPLAINTS AT THIS TIME. WILL CONTINUE TO MONITOR.
--- NOTE | 2019-07-06 09:15 | NUR ---
PT VOIDED INTO URINAL. PT SITTING UP IN CHAIR WITH LEGS ELEVATED. NO COMPLAINTS OR NEEDS AT THIS TIME. AND DR GANDARA BOTH STATE PT CAN TRANSFER TO THE FLOOR.
--- NOTE | 2019-07-06 12:55 | NUR ---
REPORT GIVEN TO KARINA LEE, ON MED 2. PT TRANSFERRING TO ROOM 475. FAMILY AT BEDSIDE. VSS.
--- NOTE | 2019-07-06 13:19 | NUR ---
TRANSFER FROM ICU BY W/C. OREINTED TO ROOM. CALL LIGHT IN REACH. WILL CONT. PLAN OF CARE.
--- NOTE | 2019-07-06 14:04 | EC ---
PATIENT:ARIES KHANNA DATE OF SERVICE: 07/03/19 SEX: M MEDICAL RECORD: [id number] DATE OF : 41 LOCATION:D.M2 D.211 AGE OF PATIENT: 74 ADMISSION DATE: 07/03/19 REFERRING PHYSICIAN: INTERPRETING PHYSICIAN: JULIET PLUMMER MD ECHOCARDIOGRAM REPORT ECHO CHARGES 4 ECHO COMPLETE Date: 07/03/19 CLINICAL DIAGNOSIS: DYSPNEA, VT ECHOCARDIOGRAPHIC MEASUREMENTS (adult normal given) AC root (d.<3.7cm) 2.8 cm LV Septum d (<1.2 cm> 1.2 cm Valve Excursion 1.7 cm LV Septum (systole) 1.3 cm Left Atria (s.<4.0cm> 3.4 cm LVPW d(<1.2cm) 0.8 cm RV (d.<2.3cm) 3.4 cm LVPW (sytole) 0.9 cm LV diastole(<5.6CM) 3.3 cm MV E-F(>70mm/sec) cm LV systole 2.1 cm LVOT Diameter 2.2 cm MV exc.(>10mm) cm Est.ejection fraction (50-75%) % DOPPLER: LVIT cm/sec A 53 cm/sec E 78 cm/sec LA cm/sec RVSP 30.7 mmHg LVOT 96 cm/sec AOP1/2T m/s Asc. Ao 110 cm/sec RVOT 49 cm/sec RA cm/sec PA 79 cm/sec AV Gradient Peak 4.9 mmHg AV Mean 2.3 mmHg AV Area 4.6 cm MV Gradient Peak 3.1 mmHg MV Mean 1.8 mmHg MV Area cm COMMENTS: Vegetable Cutter: Shikha [facility] Office Supervisor: 1 Dr. Plummer TAPE# PACS Pericardial Effusion N DATE OF SERVICE: 07/03/2019 ECHOCARDIOGRAM FINDINGS: 1. Left ventricular chamber size is within normal limits. Left ventricular systolic function is moderately depressed at 30%. 2. Left atrium is within normal limits. Right atrium and right ventricular chamber sizes are moderately dilated. 3. Valvular structures have normal structure and motion. ECHOCARDIOGRAM REPORT [id number] ARIES KHANNA 4. Doppler interrogation reveals mild tricuspid regurgitation, no other valvular insufficiency or stenosis. Pulmonary systolic pressure estimated at 31 mmHg. 5. No evidence of pericardial effusion or left ventricular thrombus. TRANSINT:[id number] Voice Confirmation ID: [id number] DOCUMENT ID: [id number] JULIET PLUMMER MD at 1404 CC: [id number] DICTATION DATE: 07/03/19 1611 ADMISSIONS CLERK: 07/03/19 193 ADM IN [address] [id number]
--- NOTE | 2019-07-06 14:04 | CN ---
PATIENT NAME:ARIES KHANNA MEDICAL RECORD: [id number] : 41 LOCATION:D. D.2114 ADMIT DATE: 07/03/19 ACCOUNT: [id number] CONSULTING PHYSICIAN: JULIET CHRISTINE MD REFERRING PHYSICIAN: JUVENTINO ARENAS MD DATE OF CONSULTATION: 07/03/2019 CARDIOLOGY CONSULTATION DIAGNOSES: 1. Non-Q-wave myocardial infarction. 2. Bilateral pulmonary emboli. 3. Deep vein thrombosis. 4. Possible sepsis. 5. Hypotension. 6. Coronary artery disease. 7. Chronic obstructive pulmonary disease. 8. Smoking history. 9. Hyperlipidemia. HISTORY OF PRESENT ILLNESS: This is a gentleman with a past history of coronary artery disease, but no cardiac intervention, cardiac catheterization was performed approximately 10 years ago revealing coronary artery disease, but no critical disease for intervention, now presents to the Emergency Room with shortness of breath and some chest pain, found to have bilateral pulmonary emboli, deep vein thrombosis as well an elevated troponin and EKG compatible with ongoing ischemia in the lateral leads with ST depression and sinus tachycardia, not had a history of deep vein thrombosis or pulmonary emboli in the past. He is receiving fluid boluses as well as IV antibiotics. His systolic blood pressures is in the 100 range at this time. PHYSICAL EXAMINATION: CONSTITUTIONAL/GENERAL APPEARANCE: Well nourished, well developed, appears stated age. EYES: Lids and conjunctivae noninjected. No discharge. No pallor. ENT: Lips within normal limit. No cyanosis. No pallor. NECK: Carotid arteries, bilateral normal upstroke. No bruits. No thrills. No jugular venous pressure or distention. CERVICAL LYMPH NODES: Nontender. Nonenlarged. THYROID: Not enlarged. No nodules. CARDIOVASCULAR: Precordial exam, nondisplaced. No heaves or pericardial thrills. Rate and rhythm, regular. Heart sounds, normal S1, normal S2. No S3, no gallop, no rub. Systolic murmur, not heard. Diastolic murmur, not heard. RESPIRATORY: Respiratory effort, unlabored. Normal curvature. No thoracic deformity. No chest wall tenderness. Percussion, resonant. Auscultation, clear. No wheezes, no rales, no rhonchi. ABDOMEN: Soft, nondistended, nontender. No abdominal pain, no vomiting and normal appetite. MUSCULOSKELETAL: No joint tenderness, normal gait, normal tone. SKIN: Warm and dry. OVERALL IMPRESSION: Elevated troponin, tachycardia, hypotension this could all go with the pulmonary emboli. We will get an echocardiogram to assess overall LV function with the ST depression; however, most likely there is some degree of coronary artery disease and these basically failing a stress test with this. We CONSULT REPORT [id number] ARIES KHANNA will continue serial troponins and see if they increase which would be more cardiac in nature from an increasing troponin standpoint rather than from pulmonary from the PE especially if the ST depression continues. Further care depends upon his clinical course as well as the results of the echocardiogram. TRANSINT:[id number] Voice Confirmation ID: [id number] DOCUMENT ID: [id number] JULIET CHRISTINE MD at 1404 CC: [id number] DICTATION DATE: 07/03/19 1221 HARD TILE SETTER: 07/03/19 1650 ADM IN [facility] [address] [id number]
--- NOTE | 2019-07-06 14:04 | OP ---
PATIENT NAME: ARIES KHANNA MEDICAL RECORD: [id number] :41 LOCATION:D.M2 D.2114 ADMISSION DATE:07/03/19 SURGEON: JULIET CHRISTINE MD DATE OF OPERATION: 07/05/2019 PROCEDURES: 1. PTCA stent left circumflex. 2. IFR. 3. Left heart catheterization. 4. Selective coronary angiography. 5. Left ventriculogram. INDICATION: Non-Q-wave myocardial infarction. PROCEDURE IN DETAIL: After informed consent was obtained and after a detailed description of risks, benefits as well as alternative therapies, the patient elected to proceed with angiogram and angioplasty. The left femoral area was prepped and draped in normal sterile fashion. Left femoral artery was cannulated via modified Seldinger technique with placement of 5-Danish sheath. All catheters exchanged through this sheath. FINDINGS: Left ventriculogram was performed in standard 30-degree LAYNE view, reveals good cardiac wall motion, ejection fraction 65%. SELECTIVE CORONARY ANGIOGRAPHY: 1. Left main has no significant angiographic disease. 2. Left anterior descending has mild irregularities, but no flow-limiting stenosis. 3. The left circumflex has 70% stenosis in the proximal vessel. An IFR was abnormal. 4. The right coronary artery has mild irregularities, but no flow-limiting stenosis. PTCA STENT OF THE LEFT CIRCUMFLEX: The stent used was a 3.0 x 15 mm Integrity. Result was 0% residual stenosis. OVERALL IMPRESSION: Successful percutaneous transluminal angioplasty stent of the left circumflex going from 70% initial stenosis with abnormal IFR to 0% residual. TRANSINT:[id number] Voice Confirmation ID: [id number] DOCUMENT ID: [id number] JULIET CHRISTINE MD at 1404 CC: [id number] DICTATION DATE: 07/05/19 0842 PURCHASING BUYER: 07/05/19 1145 [place] [address]
--- NOTE | 2019-07-06 19:30 | NUR ---
RECEIVED BEDSIDE REPORT. PATIENT IS ALERT AND ORIENTED, RESTING COMFORTABLY. RESPIRATIONS ARE EVEN AND UNLABORED. NO S/S OF DISTRESS. NO C/O PAIN. CALL LIGHT WITHIN REACH. WILL CPOC.
--- NOTE | 2019-07-06 19:49 | NUR ---
SPOKE WITH TREVA RAGLAND APN ABOUT MED RX NEEDING TO BE ADDRESSED.
[2019-07-07] VITALS: BP 128/86
--- NOTE | 2019-07-07 01:34 | NUR ---
PATIENT RESTING COMFORTABLY. RESPIRATIONS ARE EVEN AND UNLABORED. NO S/S OF DISTRESS. NO C/O PAIN. CALL LIGHT WITHIN REACH. WILL CPOC.
[2019-07-07 04:30] VITALS: BP 132/93
[2019-07-07 04:35] LABS: BASOPHILS 0.2 % (0-2); EOSINOPHILS 3.4 % (0-7); HEMATOCRIT 35.9 % (42.0-54.0); HEMOGLOBIN 11.8 g/dL (13.5-17.5); IMMATURE GRANULOCYTES 0.2 % (0-5); LYMPHOCYTES 25.2 % (15-50); MCH 31.9 pg (26.0-34.0); MCHC 32.9 g/dL (31.0-37.0); MEAN PLATELET VOLUME 10.4 fL (7.4-10.4); MONOCYTES 8.9 % (2-11); NEUTROPHILS 62.1 % (40-80); PLATELET COUNT 133 10x3/uL (130-400); RDW 14.1 % (11.5-14.5); WBC 5.1 10x3/uL (4.8-10.8)
[2019-07-07 04:41] LABS: ANION GAP 12.3 mmol/L (8-16); BILIRUBIN - TOTAL 0.79 mg/dL (0.2-1.3); CALCIUM 8.2 mg/dL (8.5-10.1); CARBON DIOXIDE 27.8 mmol/L (21.0-32.0); CREATININE - SERUM 1.6 mg/dL (0.6-1.3); MAGNESIUM - SERUM 1.9 mg/dL (1.8-2.4); POTASSIUM - SERUM 4.1 mmol/L (3.5-5.1); PROTEIN - SERUM 6.2 g/dL (6.4-8.2)
[2019-07-07 04:43] LABS: PHOSPHOROUS 3.7 mg/dL (2.5-4.9)
--- NOTE | 2019-07-07 09:42 | NUR ---
STOOL SPECIMEN COLLECTED AND TAKEN TO LAB. WILL MONITOR.
--- NOTE | 2019-07-07 10:18 | NUR ---
TELEMETRY SR. RESP UL ON 02 4L NC. ASSISTED UP TO CHAIR WITH CALL LIGHT IN REACH. WILL CONT. PLAN OF CARE.
--- NOTE | 2019-07-07 11:56 | NUR ---
OT NOTE: PT COMPLETED BED MOB TASK WITH MIN A FOR SUPINE TO SIT. PT COMPLETED BUE AROM AT EOB WITH SBA. [phone] THANK YOU, LUCÍA CARLSON
--- NOTE | 2019-07-07 14:48 | NUR ---
UP OOB WITH PT ASSIST.
[2019-07-07 16:46] VITALS: BP 173/101
[2019-07-07 16:52] VITALS: BP 142/75; BP 163/101
--- NOTE | 2019-07-07 19:30 | NUR ---
REPORT AND INITIAL ROUNDS COMPLETED. PT RESTING IN BED. O2 @ 4L/NC. SR PER TELEMETRY. SALINE LOCK TO LEFT A/C. AT BEDSIDE. C/O NEEDING SLEEPING MEDICATION TO HELP HIM SLEEP TONIGHT. CPOC.
[2019-07-07 20:00] VITALS: BP 164/84
--- NOTE | 2019-07-07 21:45 | NUR ---
SPOKE WITH TREVA RAGLAND APN AND RECIEVED ORDER FOR MELATONIN FOR SLEEP.
[2019-07-08] VITALS (7 sets, daily range): BP systolic 127–155; BP diastolic 76–96
[2019-07-08 06:13] LABS: BASOPHILS 0.4 % (0-2); EOSINOPHILS 4.6 % (0-7); HEMATOCRIT 37.5 % (42.0-54.0); HEMOGLOBIN 12.3 g/dL (13.5-17.5); IMMATURE GRANULOCYTES 0.2 % (0-5); LYMPHOCYTES 23.6 % (15-50); MCH 31.7 pg (26.0-34.0); MCHC 32.8 g/dL (31.0-37.0); MCV 96.6 fL (80.0-100.0); MONOCYTES 8.9 % (2-11); NEUTROPHILS 62.3 % (40-80); PLATELET COUNT 148 10x3/uL (130-400); RBC 3.88 10x6/uL (4.20-6.10); RDW 14.5 % (11.5-14.5); WBC 5.3 10x3/uL (4.8-10.8)
[2019-07-08 06:36] LABS: ALBUMIN 3.2 g/dL (3.4-5.0); ANION GAP 11.8 mmol/L (8-16); BILIRUBIN - TOTAL 1.33 mg/dL (0.2-1.3); CALCIUM 8.8 mg/dL (8.5-10.1); CARBON DIOXIDE 28.1 mmol/L (21.0-32.0); CREATININE - SERUM 1.4 mg/dL (0.6-1.3); MAGNESIUM - SERUM 1.9 mg/dL (1.8-2.4); PHOSPHOROUS 3.9 mg/dL (2.5-4.9); POTASSIUM - SERUM 3.9 mmol/L (3.5-5.1); PROTEIN - SERUM 6.5 g/dL (6.4-8.2)
--- NOTE | 2019-07-08 07:15 | NUR ---
received pt in bed eyes closed resp unlabored skin w/d nad noted
--- NOTE | 2019-07-08 19:51 | NUR ---
REPORT RECIEVED AND INITIAL ROUNDS COMPLETED. PT RESTING IN BED. NO DISTRESS. CALL LIGHT IN REACH. SEE ASSESSMENT. CPOC.
--- NOTE | 2019-07-08 21:35 | NUR ---
BEDTIME MEDS GIVEN. FSBS 153, PT DECLINED SLIDING SCALE INSULIN.
[2019-07-09 04:36] VITALS: BP 132/95
[2019-07-09 06:05] LABS: BASOPHILS 0.4 % (0-2); EOSINOPHILS 4.4 % (0-7); HEMATOCRIT 40.1 % (42.0-54.0); HEMOGLOBIN 13.2 g/dL (13.5-17.5); IMMATURE GRANULOCYTES 0.4 % (0-5); LYMPHOCYTES 26.5 % (15-50); MCH 31.9 pg (26.0-34.0); MCHC 32.9 g/dL (31.0-37.0); MCV 96.9 fL (80.0-100.0); MEAN PLATELET VOLUME 10.2 fL (7.4-10.4); MONOCYTES 10.6 % (2-11); NEUTROPHILS 57.7 % (40-80); PLATELET COUNT 155 10x3/uL (130-400); RBC 4.14 10x6/uL (4.20-6.10); RDW 14.4 % (11.5-14.5); WBC 5.7 10x3/uL (4.8-10.8)
[2019-07-09 06:34] LABS: ALBUMIN 3.2 g/dL (3.4-5.0); ANION GAP 12.5 mmol/L (8-16); BILIRUBIN - TOTAL 1.58 mg/dL (0.2-1.3); CARBON DIOXIDE 28.4 mmol/L (21.0-32.0); CREATININE - SERUM 1.5 mg/dL (0.6-1.3); POTASSIUM - SERUM 3.9 mmol/L (3.5-5.1); PROTEIN - SERUM 6.8 g/dL (6.4-8.2)
--- NOTE | 2019-07-09 07:15 | NUR ---
RECEIVED PT IN BED EYES CLOSED RESP UNLABORED NAD NOTED
[2019-07-09 08:00] VITALS: BP 171/89
[2019-07-09 12:00] VITALS: BP 133/81
[2019-07-09 16:00] VITALS: BP 128/69
--- NOTE | 2019-07-09 19:56 | NUR ---
REPORT RECIEVED AND INITIAL ROUNDS COMPLETED. PT VISITING WITH IN ROOM. ALERT/ORIENTED. O2 @ 2L/NC. NO DISTRESS. SR/94 PER TELEMETRY. CPOC.
[2019-07-09 20:30] VITALS: BP 143/95
--- NOTE | 2019-07-09 22:43 | NUR ---
ALL BEDTIME MEDS GIVEN. PT TEACHING ON MEDICATIONS. FSBS 150. DECLINED BEDTIME SNACK. CALL LIGHT IN REACH. CPOC.
[2019-07-10 00:20] VITALS: BP 134/85
[2019-07-10 04:30] VITALS: BP 131/96
--- NOTE | 2019-07-10 05:16 | NUR ---
NO CHANGE FROM INITIAL SHIFT ASSESSMENT. CPOC. CALL LIGHT IN REACH.
[2019-07-10 05:30] LABS: BASOPHILS 0.4 % (0-2); EOSINOPHILS 4.1 % (0-7); HEMATOCRIT 42.2 % (42.0-54.0); HEMOGLOBIN 13.9 g/dL (13.5-17.5); LYMPHOCYTES 27.3 % (15-50); MCH 31.8 pg (26.0-34.0); MCHC 32.9 g/dL (31.0-37.0); MCV 96.6 fL (80.0-100.0); MONOCYTES 9.7 % (2-11); NEUTROPHILS 58.5 % (40-80); PLATELET COUNT 172 10x3/uL (130-400); RBC 4.37 10x6/uL (4.20-6.10); RDW 14.5 % (11.5-14.5); WBC 5.4 10x3/uL (4.8-10.8)
[2019-07-10 06:02] LABS: ALBUMIN 3.2 g/dL (3.4-5.0); ANION GAP 12.4 mmol/L (8-16); BILIRUBIN - TOTAL 1.59 mg/dL (0.2-1.3); CALCIUM 8.6 mg/dL (8.5-10.1); CARBON DIOXIDE 29.4 mmol/L (21.0-32.0); CREATININE - SERUM 1.6 mg/dL (0.6-1.3); POTASSIUM - SERUM 3.8 mmol/L (3.5-5.1); PROTEIN - SERUM 6.8 g/dL (6.4-8.2)
--- NOTE | 2019-07-10 08:00 | NUR ---
SERINA COLLINS FRON PIPE FINISHING SUPERVISOR ASKED TO LOOK AT LEFT GROIN HEMATOMA. SHE FEELS IT HAS BEEN TO LONG TO PU PRESSURE TO SITE.
[2019-07-10 08:09] VITALS: BP 149/99
--- NOTE | 2019-07-10 10:04 | NUR ---
UP AMBULATING HALLWAY WITH PT ASSIST. WILL CONT. PLAN OF CARE.
--- NOTE | 2019-07-10 10:51 | NUR ---
Rehab Note- Acute Inpatient Rehab prescreen order received. The patient is a good inpatient rehab candidate, requiring rest breaks with ambulating. Will follow at this time. If patient is in agreeance will accept the patient to [facility] Acute Inpatient Rehab when medically stable and ready to discharge. Thank you for this referral! Sully Stout RN Clinical Liaison, [facility] Rehab
[2019-07-10 11:32] VITALS: BP 113/63
[2019-07-10 15:22] VITALS: BP 140/83
--- NOTE | 2019-07-10 16:02 | NUR ---
OT NOTE: PT COMPLETED BED MOB WITH SPV. PT COMPLETED ADL MOB WITH CGA. PT COMPLETED BUE AROM EXS AT EOB. [phone] THANK YOU, LUCÍA CARLSON
--- NOTE | 2019-07-10 16:15 | MORECARE ---
CASE MANAGEMENT DISCHARGE SUMMARY PATIENT: ARIES KHANNA UNIT: [id number] ADM DATE: 07/03/19 AGE: 74 : 43 SEX: M ROOM/BED: D.2114 AUTHOR: SHABNAM,DOC PHYSICIAN: REFERRING PHYSICIAN: JUVENTINO ARENAS MD DATE OF SERVICE: 07/10/19 Discharge Plan Patient Name: ARIES KHANNA Facility: [facility]:[place] : 1945 Planned Disposition: Inpatient Rehab Anticipated Discharge Date: 07/11/19 Discharge Date: Expected LOS: 8 Initial Reviewer: [email or web address] Initial Review Date: 07/03/2019 Generated: 07/10/19 5:14 pm DCP- Discharge Planning Updated by [email or web address]: Martha Sin on 07/03/19 10:[address] DC PLAN: Return home with independently. ANTICIPATED DC NEEDS: Denied known dc needs in ER. CM met with patient and his to complete initial dc planning assessment. CM educated them on the CM role and verbal consent given by patient to complete assessment. CM verified patient's address, phone number, and emergency contact phone numbers. Patient lives at home with his . He reports he is independent in his care at home. At discharge patient plans to return home with his and feels this is a safe discharge. CM discussed availability of home health, rehab services, and medical equipment. Patient denied known discharge needs at this time. Transportation provider at discharge will be his . CM will continue to follow and will assist as needed with dc plans/needs. Martha Sin RN, [facility] DCPIA - Discharge Planning Initial Assessment Updated by [email or web address]: Martha Sin on 07/03/19 11:21 am * Is the patient Alert and Oriented? Yes * How many steps to enter\exit or inside your home? * PCP Dr. Edwin Miranda * Pharmacy [facility] [address] * Preadmission Environment Home with Family * ADLs Independent * Equipment Cane CPAP Rolling Walker * List name and contact numbers for known caregivers / representatives who currently or will assist patient after discharge: Dwight Khanna - [facility] - [phone] * Verbal permission to speak to the caregivers and representatives has been obtained from the patient. Yes * Additional services required to return to the preadmission environment? No * Can the patient safely return to the preadmission environment? Yes * Has this patient been hospitalized within the prior 30 days at any hospital? No External Providers External Provider: [facility] Contact Date: 07/10/2019 Service Request Date: Service Type: Resolution: Reviewer: Comments: Last DP export: 07/03/19 10:25 am Patient Name: ARIES KHANNA Page [id number] at 1615 All edits/amendments must be made on the electronic document DICTATION DATE: 07/10/191613 YARDING AND FOLDING MACHINE OPERATOR: CORNELIO 07/10/191613 RPT#: [id number] DC DATE: STATUS: ADM IN [facility] [address] [place] [address] END OF REPORT
--- NOTE | 2019-07-10 16:42 | MORECARE ---
CASE MANAGEMENT DISCHARGE SUMMARY PATIENT: ARIES KHANNA UNIT: [id number] ADM DATE: 07/03/19 AGE: 74 : 43 SEX: M ROOM/BED: D.2114 AUTHOR: SHABNAM,DOC PHYSICIAN: REFERRING PHYSICIAN: JUVENTINO ARENAS MD DATE OF SERVICE: 07/10/19 Discharge Plan Patient Name: ARIES KHANNA Facility: [facility]:[place] : 1945 Planned Disposition: Inpatient Rehab Anticipated Discharge Date: 07/11/19 Discharge Date: Expected LOS: 8 Initial Reviewer: [email or web address] Initial Review Date: 07/03/2019 Generated: 07/10/19 5:41 pm Comments DCP- Discharge Planning Updated by [email or web address]: Mushtaq Gallegos on 07/10/19 3:[address] Patient Name: ARIES KHANNA Encounter No: [id number] : 1945 Primary Insurance: MEDICARE A & B Anticipated DC Date: 07-11-2019 Planned Disposition: Inpatient Rehab External Planned Provider: [facility] IN[facility]IENT [facility] DCP follow-up note: CM RECEIVED INPATIENT REHAB PRESCREENING ORDER, SPOKE TO PT IN ROOM REGARDING REHAB OPTIONS, LOCATIONS AND PROVIDERS. PT AND HIS SPOUSE BOTH WANT TO GO TO [facility] IT IS CLOSER TO PT'S HOME AND HE WILL GET A PRIVATE ROOM. CHOICE SIGNED. IMPORTANT MESSAGE FROM MEDICARE PROVIDED AND EXPLAINED. CM CALLED [facility] OF [facility] INPATIENT [facility], , PROVIDED REFERRAL FOR INPATIENT REHAB. CM FAXED REFERRAL INFORMATION TO [facility] WITH CURRENT MAR AT [phone]. CM WAITING ADMISSION DETERMINATION FROM [facility] INPATIENT RE[facility]. Mushtaq Gallegos, CASE MANAGEMENT DCP- Discharge Planning Updated by [email or web address]: Martha Sin on 07/03/19 10:[address] DC PLAN: Return home with independently. ANTICIPATED DC NEEDS: Denied known dc needs in ER. CM met with patient and his to complete initial dc planning assessment. CM educated them on the CM role and verbal consent given by patient to complete assessment. CM verified patient's address, phone number, and emergency contact phone numbers. Patient lives at home with his . He reports he is independent in his care at home. At discharge patient plans to return home with his and feels this is a safe discharge. CM discussed availability of home health, rehab services, and medical equipment. Patient denied known discharge needs at this time. Transportation provider at discharge will be his . CM will continue to follow and will assist as needed with dc plans/needs. Martha Sin RN, [facility] DCPIA - Discharge Planning Initial Assessment Updated by [email or web address]: Martha Sin on 07/03/19 11:21 am * Is the patient Alert and Oriented? Yes * How many steps to enter\exit or inside your home? * PCP Dr. Edwin Miranda * Pharmacy [facility] [address] * Preadmission Environment Home with Family * ADLs Independent * Equipment Cane CPAP Rolling Walker * List name and contact numbers for known caregivers / representatives who currently or will assist patient after discharge: Dwight Khanna - spouse - [phone] * Verbal permission to speak to the caregivers and representatives has been obtained from the patient. Yes * Additional services required to return to the preadmission environment? No * Can the patient safely return to the preadmission environment? Yes * Has this patient been hospitalized within the prior 30 days at any hospital? No Coverage Notice Reviewer: [email or web address] Gallegos Notice Issued Date-Time: 07/10/2019 14:40 Notice Type: IM Discharge Notice Notice Delivered To: Patient Relationship to Patient: Hat Presser Name: Delivery Method: HAND - Hand Delivered Annie Days: Prior Verbal Notification: Recipient Understood Notice: Yes Recipient Signature: Yes Med Rec Note Co-signed by Attending: Coverage Notice Comment: Reviewer: [email or web address] Edenilson Gallegos Notice Issued Date-Time: 07/10/2019 14:40 Notice Type: Patient Choice Letter Notice Delivered To: Patient Relationship to Patient: Hat Presser Name: Delivery Method: HAND - Hand Delivered Annie Days: Prior Verbal Notification: Recipient Understood Notice: Yes Recipient Signature: Yes Med Rec Note Co-signed by Attending: Coverage Notice Comment: [facility] Last DP export: 07/10/19 3:15 p Patient Name: ARIES KHANNA Page [phone] at 1642 All edits/amendments must be made on the electronic document DICTATION DATE: 01/13/20 1641 FILM PRODUCER: DM 07/10/191640 RPT#: [id number] DC DATE: STATUS: ADM IN [facility] [address] [place] [address] END OF REPORT
--- NOTE | 2019-07-10 19:17 | NUR ---
RECEIVED BEDSIDE REPORT. PATIENT IS ALERT AND ORIENTED, RESTING COMFORTABLY IN BED. RESPIRATIONS ARE EVEN AND UNLABORED. NO S/S OF DISTRESS. NO C/O PAIN. NEEDS MET. CALL LIGHT WITHIN REACH. WILL CPOC.
[2019-07-10 20:00] VITALS: BP 130/85
[2019-07-11] VITALS: BP 111/62
[2019-07-11 04:00] VITALS: BP 116/81
[2019-07-11 07:05] LABS: BASOPHILS 0.5 % (0-2); EOSINOPHILS 3.3 % (0-7); HEMATOCRIT 41.3 % (42.0-54.0); HEMOGLOBIN 13.8 g/dL (13.5-17.5); LYMPHOCYTES 26.8 % (15-50); MCH 32.3 pg (26.0-34.0); MCHC 33.4 g/dL (31.0-37.0); MCV 96.7 fL (80.0-100.0); MEAN PLATELET VOLUME 10.1 fL (7.4-10.4); NEUTROPHILS 60.4 % (40-80); PLATELET COUNT 177 10x3/uL (130-400); RBC 4.27 10x6/uL (4.20-6.10); RDW 14.7 % (11.5-14.5)
[2019-07-11 07:37] LABS: ALBUMIN 3.4 g/dL (3.4-5.0); ANION GAP 12.2 mmol/L (8-16); BILIRUBIN - TOTAL 1.74 mg/dL (0.2-1.3); CALCIUM 8.8 mg/dL (8.5-10.1); CREATININE - SERUM 1.6 mg/dL (0.6-1.3); POTASSIUM - SERUM 4.2 mmol/L (3.5-5.1)
[2019-07-11 07:58] VITALS: BP 139/89
--- NOTE | 2019-07-11 08:44 | MORECARE ---
CASE MANAGEMENT DISCHARGE SUMMARY PATIENT: ARIES KHANNA UNIT: [id number] ADM DATE: 07/03/19 AGE: 74 : 43 SEX: M ROOM/BED: D.2114 AUTHOR: SHABNAM,DOC PHYSICIAN: REFERRING PHYSICIAN: JUVENTINO ARENAS MD DATE OF SERVICE: 07/11/19 Discharge Plan Patient Name: ARIES KHANNA Facility: [facility]:[place] : 1945 Planned Disposition: Inpatient Rehab Anticipated Discharge Date: 07/11/19 Discharge Date: Expected LOS: 8 Initial Reviewer: [email or web address] Initial Review Date: 07/03/2019 Generated: 07/11/19 9:43 am Comments DCP- Discharge Planning Updated by [email or web address]: Mushtaq Gallegos on 07/11/19 7:[address] Patient Name: ARIES KHANNA Encounter No: [id number] : 1945 Primary Insurance: MEDICARE A & B Anticipated DC Date: 07-11-2019 Planned Disposition: Inpatient Rehab External [facility] DCP follow-up note: CM FAXED REFERRAL UPDATE TO [facility] WITH CURRENT MAR AT [phone]. CM WAITING ADMISSION DETERMINATION FROM [facility] INPAT[facility]. PETR Gonzales DCP- Discharge Planning Updated by [id number]: Mushtaq Gallegos on 07/10/19 3:[address] Patient Name: ARIES KHANNA Encounter No: [id number] : 1945 Primary Insurance: MEDICARE A & B Anticipated DC Date: 07-11-2019 Planned Disposition: Inpatient Rehab External Planned Provider[facility] DCP follow-up note: CM RECEIVED INPATIENT REHAB PRESCREENING ORDER, SPOKE TO PT IN ROOM REGARDING REHAB OPTIONS, LOCATIONS AND PROVIDERS. PT AND HIS SPOUSE BOTH WANT TO GO TO [facility] IT IS CLOSER TO PT'S HOME AND HE WILL GET A PRIVATE ROOM. CHOICE SIGNED. IMPORTANT MESSAGE FROM MEDICARE PROVIDED AND EXPLAINED. CM CALLED [facility] OF [facility], , PROVIDED REFERRAL FOR INPATIENT REHAB. CM FAXED REFERRAL INFORMATION TO [facility] WITH CURRENT MAR AT [phone]. CM WAITING ADMISSION DETERMINATION FROM [facility] IN[facility]. Mushtaq Gallegos, CASE MANAGEMENT DCP- Discharge Planning Updated by [email or web address]: Martha Sin on 07/03/19 10:[address] DC PLAN: Return home with independently. ANTICIPATED DC NEEDS: Denied known dc needs in ER. CM met with patient and his to complete initial dc planning assessment. CM educated them on the CM role and verbal consent given by patient to complete assessment. CM verified patient's address, phone number, and emergency contact phone numbers. Patient lives at home with his . He reports he is independent in his care at home. At discharge patient plans to return home with his and feels this is a safe discharge. CM discussed availability of home health, rehab services, and medical equipment. Patient denied known discharge needs at this time. Transportation provider at discharge will be his . CM will continue to follow and will assist as needed with dc plans/needs. Martha Sin RN, [facility] DCPIA - Discharge Planning Initial Assessment Updated by [id number]: Martha Sin on 07/03/19 11:21 am * Is the patient Alert and Oriented? Yes * How many steps to enter\exit or inside your home? * PCP Dr. Edwin Miranda * [facility] [facility] [address] * Preadmission Environment Home with Family * ADLs Independent * Equipment Cane CPAP Rolling Walker * List name and contact numbers for known caregivers / representatives who currently or will assist patient after discharge: Dwight Khanna - [facility] - [phone] * Verbal permission to speak to the caregivers and representatives has been obtained from the patient. Yes * Additional services required to return to the preadmission environment? No * Can the patient safely return to the preadmission environment? Yes * Has this patient been hospitalized within the prior 30 days at any hospital? No Coverage Notice Reviewer: [email or web address] Edenilson Gallegos Notice Issued Date-Time: 07/10/2019 14:40 Notice Type: IM Discharge Notice Notice Delivered To: Patient Relationship to Patient: Sidewalk Inspector Name: Delivery Method: HAND - Hand Delivered Annie Days: Prior Verbal Notification: Recipient Understood Notice: Yes Recipient Signature: Yes Med Rec Note Co-signed by Attending: Coverage Notice Comment: Reviewer: [id number] Gallegos Notice Issued Date-Time: 07/10/2019 14:40 Notice Type: Patient Choice Letter Notice Delivered To: Patient Relationship to Patient: Sidewalk Inspector Name: Delivery Method: HAND - Hand Delivered Annie Days: Prior Verbal Notification: Recipient Understood Notice: Yes Recipient Signature: Yes Med Rec Note Co-signed by Attending: Coverage Notice Comment: [facility] Last DP export: 07/10/19 3:42 p Patient Name: ARIES KHANNA Page [phone] at 0844 All edits/amendments must be made on the electronic document DICTATION DATE: 07/11/19842 DAYCARE WORKER: CORNELIO 07/11/19842 RPT#: [id number] DC DATE: STATUS: ADM IN [facility] [address] [place] [address] END OF REPORT
[2019-07-11 11:37] VITALS: BP 149/90
--- NOTE | 2019-07-11 11:43 | NUR ---
SPO2 94% RESTING ON 2L/NC AMBULATING ON RA SP02 86% AMBULATING ON 2L/NC 96%
--- NOTE | 2019-07-11 11:46 | NUR ---
AMBULATES WITH PT ASSIST ON RA. WALK TEST DONE BY RT. 02 SATS DROPPED TO 84%. WILL QUALIFY FOR HOME 02.
--- NOTE | 2019-07-11 15:04 | NUR ---
WALK TEST 94% O2 SATS ROOM AIR AT REST. 86% 02 SATS ROOM AIR ON EXERTION. 96% 02 SATS ON 2L 02 NC DURING EXERTION.
--- NOTE | 2019-07-11 15:28 | NUR ---
Nutrition Follow-up: Eating well. Diet: Diabetic, [facility] Soft PO intake: 100% Wt: 246# (07/11); 243# (07/05); 245# (07/03) Last BM: 07/09 per chart Labs noted: Glu 122 Meds noted: Folate, Humulin -Continue current diet as tolerated. -Monitor wt; noted daily wts ordered. -RD following.
--- NOTE | 2019-07-11 15:38 | MORECARE ---
CASE MANAGEMENT DISCHARGE SUMMARY PATIENT: ARIES KHANNA UNIT: [id number] ADM DATE: 07/03/19 AGE: 74 : 41 SEX: M ROOM/BED: D.2114 AUTHOR: SHABNAM,DOC PHYSICIAN: REFERRING PHYSICIAN: JUVENTINO ARENAS MD DATE OF SERVICE: 07/11/19 Discharge Plan Patient Name: ARIES KHANNA Facility: [facility]:[place] : 1945 Planned Disposition: Inpatient Rehab Anticipated Discharge Date: 07/11/19 Discharge Date: Expected LOS: 8 Initial Reviewer: [id number] Initial Review Date: 07/03/2019 Generated: 07/11/19 4:37 pm Comments DCP- Discharge Planning Updated by [email or web address]: Mushtaq Gallegos on 07/11/19 7:[address] Patient Name: ARIES KHANNA Encounter No: [id number] : 1945 Primary Insurance: MEDICARE A & B Anticipated DC Date: 07-11-2019 Planned Disposition: Inpatient Rehab [facility] DCP follow-up note: CM FAXED REFERRAL UPDATE TO [facility] WITH CURRENT MAR AT [phone]. CM WAITING ADMISSION DETERMINATION FROM [facility] INPATIENT REHAB. PETR Gonzales DCP- Discharge Planning Updated by [email or web address]: Mushtaq Gallegos on 07/10/19 3:[address] Patient Name: ARIES KHANNA Encounter No: [id number] : 1945 Primary Insurance: MEDICARE A & B Anticipated DC Date: 07-11-2019 Planned Disposition: Inpatient Rehab External Planned Provider: [facility] DCP follow-up note: CM RECEIVED INPATIENT REHAB PRESCREENING ORDER, SPOKE TO PT IN ROOM REGARDING REHAB OPTIONS, LOCATIONS AND PROVIDERS. PT AND HIS SPOUSE BOTH WANT TO GO TO [facility] IT IS CLOSER TO PT'S HOME AND HE WILL GET A PRIVATE ROOM. CHOICE SIGNED. IMPORTANT MESSAGE FROM MEDICARE PROVIDED AND EXPLAINED. CM CALLED [facility] OF [facility] INPATIENT REHAB, , PROVIDED REFERRAL FOR INPATIENT REHAB. CM FAXED REFERRAL INFORMATION TO [facility] WITH CURRENT MAR AT [phone]. CM WAITING ADMISSION DETERMINATION FROM [facility] INPATIENT REHAB. Mushtaq Gallegos, CASE MANAGEMENT DCP- Discharge Planning Updated by [email or web address]: Martha Sin on 07/03/19 10:[address] DC PLAN: Return home with independently. ANTICIPATED DC NEEDS: Denied known dc needs in ER. CM met with patient and his to complete initial dc planning assessment. CM educated them on the CM role and verbal consent given by patient to complete assessment. CM verified patient's address, phone number, and emergency contact phone numbers. Patient lives at home with his . He reports he is independent in his care at home. At discharge patient plans to return home with his and feels this is a safe discharge. CM discussed availability of home health, rehab services, and medical equipment. Patient denied known discharge needs at this time. Transportation provider at discharge will be his . CM will continue to follow and will assist as needed with dc plans/needs. Martha Sin RN, [facility] DCPIA - Discharge Planning Initial Assessment Updated by [email or web address]: Martha Sin on 07/03/19 11:21 am * Is the patient Alert and Oriented? Yes * How many steps to enter\exit or inside your home? * PCP Dr. Edwin Miranda * [place] [facility] [place] [place] [address] * Preadmission Environment Home with Family * ADLs Independent * Equipment Cane CPAP Rolling Walker * List name and contact numbers for known caregivers / representatives who currently or will assist patient after discharge: Dwight Khanna - spouse - [phone] * Verbal permission to speak to the caregivers and representatives has been obtained from the patient. Yes * Additional services required to return to the preadmission environment? No * Can the patient safely return to the preadmission environment? Yes * Has this patient been hospitalized within the prior 30 days at any hospital? No External Providers External Provider: [facility] Patient-[place] Next Contact Date: 07/11/2019 Service Request Date: Service Type: Resolution: Reviewer: Comments: Coverage Notice Reviewer: [id number] - Mushtaq Gallegos Notice Issued Date-Time: 07/10/2019 14:40 Notice Type: IM Discharge Notice Notice Delivered To: Patient Relationship to Patient: Machinist Supervisor Name: Delivery Method: HAND - Hand Delivered Annie Days: Prior Verbal Notification: Recipient Understood Notice: Yes Recipient Signature: Yes Med Rec Note Co-signed by Attending: Coverage Notice Comment: Reviewer: [id number] - Mushtaq Gallegos Notice Issued Date-Time: 07/10/2019 14:40 Notice Type: Patient Choice Letter Notice Delivered To: Patient Relationship to Patient: Machinist Supervisor Name: Delivery Method: HAND - Hand Delivered Annie Days: Prior Verbal Notification: Recipient Understood Notice: Yes Recipient Signature: Yes Med Rec Note Co-signed by Attending: Coverage Notice Comment: [facility] INPATIENT REHAB Last DP export: 07/11/19 7:44 a Patient Name: ARIES KHANNA Page [id number] at 1538 All edits/amendments must be made on the electronic document DICTATION DATE: 07/11/191536 MEDICAL ADMINISTRATIVE TECHNICIAN: CORNELIO 07/11/19 153 RPT#: [id number] DC DATE: STATUS: ADM IN [facility] [address] [place] [address] END OF REPORT
[2019-07-11 15:42] VITALS: BP 145/89
--- NOTE | 2019-07-11 15:49 | MORECARE ---
CASE MANAGEMENT DISCHARGE SUMMARY PATIENT: ARIES KHANNA UNIT: [id number] ADM DATE: 07/03/19 AGE: 74 : 43 SEX: M ROOM/BED: D.2114 AUTHOR: SHABNAM,DOC PHYSICIAN: REFERRING PHYSICIAN: JUVENTINO ARENAS MD DATE OF SERVICE: 07/11/19 Discharge Plan Patient Name: ARIES KHANNA Facility: [facility]:[place] : 1945 Planned Disposition: Home Anticipated Discharge Date: 07/11/19 Discharge Date: Expected LOS: 8 Initial Reviewer: [id number] Initial Review Date: 07/03/2019 Generated: 07/11/19 4:48 pm Comments DCP- Discharge Planning Updated by [email or web address]: Mushtaq Gallegos on 07/11/19 2:[address] Patient Name: ARIES KHANNA Encounter No: [id number] : 1945 Primary Insurance: MEDICARE A & B Anticipated DC Date: 07-11-2019 Planned Disposition: Home DCP follow-up note: CM RECEIVED CALL FROM [facility], PT DECLINED FOR INPATIENT REHAB TOO HIGH FUNCTIONING. CM MET WITH PT IN ROOM, OFFERED HOME HEALTH. PT DECLINED AND REPORTS IF HE NEEDS HOME HEALTH, WHICH HE THINKS HE DOES NOT, HE WILL CALL THE [facility] OFFICE TO HAVE IT ARRANGED. PT DOES NEED HOME OXYGEN AND WALKER. PT WANTS TO USE [facility] HE USES THEM ALREADY. CHOICE SIGNED. PT DENIES FURHTER DISCHARGE NEEDS, FAMILY TO TRANSPORT HOME AT DISCHARGE. IMPORTANT MESSAGE FROM MEDICARE PROVIDED AND EXPLAINED. CM CALLED [facility], , SPOKE TO JORGE AND PROVIDED REFERRAL INFORMATION. CM FAXED REFERRAL TO [facility], . JORGE ADVISED THEY WILL DELIVER PORTABLE OXYGEN AND WALKER TO HOSPITAL TODAY AND WILL ARRANGE HOME OXYGEN WHEN PT ARRIVES AT HOME AFTER DISCHARGE. PETR Gonzales DCP- Discharge Planning Updated by [email or web address]: Mushtaq Gallegos on 07/11/19 7:[address] Patient Name: ARIES KHANNA Encounter No: [id number] : 1945 Primary Insurance: MEDICARE A & B Anticipated DC Date: 07-11-2019 Planned Disposition: Inpatient Rehab External Planned Provider: [facility] REHAB DCP follow-up note: CM FAXED REFERRAL UPDATE TO [facility] WITH CURRENT MAR AT [phone]. CM WAITING ADMISSION DETERMINATION FROM [facility] INPATIENT REHAB. PETR Gonzales DCP- Discharge Planning Updated by [id number]: Mushtaq Gallegos on 07/10/19 3:[address] Patient Name: ARIES KHANNA Encounter No: [id number] : 1945 Primary Insurance: MEDICARE A & B Anticipated DC Date: 07-11-2019 Planned Disposition: Inpatient Rehab External [facility] DCP follow-up note: CM RECEIVED INPATIENT REHAB PRESCREENING ORDER, SPOKE TO PT IN ROOM REGARDING REHAB OPTIONS, LOCATIONS AND PROVIDERS. PT AND HIS SPOUSE BOTH WANT TO GO TO [facility] IT IS CLOSER TO PT'S HOME AND HE WILL GET A PRIVATE ROOM. CHOICE SIGNED. IMPORTANT MESSAGE FROM MEDICARE PROVIDED AND EXPLAINED. CM CALLED [facility] OF [facility] INPATIENT REH[facility], , PROVIDED REFERRAL FOR INPATIENT REHAB. CM FAXED REFERRAL INFORMATION TO [facility] WITH CURRENT MAR AT [phone]. CM WAITING ADMISSION DETERMINATION FROM [facility] INPATIENT REHAB. PETR Gonzales DCP- Discharge Planning Updated by [id number]: Martha Sin on 07/03/19 10:[address] DC PLAN: Return home with independently. ANTICIPATED DC NEEDS: Denied known dc needs in ER. CM met with patient and his to complete initial dc planning assessment. CM educated them on the CM role and verbal consent given by patient to complete assessment. CM verified patient's address, phone number, and emergency contact phone numbers. Patient lives at home with his . He reports he is independent in his care at home. At discharge patient plans to return home with his and feels this is a safe discharge. CM discussed availability of home health, rehab services, and medical equipment. Patient denied known discharge needs at this time. Transportation provider at discharge will be his . CM will continue to follow and will assist as needed with dc plans/needs. Martha Sin RN, [facility] DCPIA - Discharge Planning Initial Assessment Updated by [email or web address]: Martha Sin on 07/03/19 11:21 am * Is the patient Alert and Oriented? Yes * How many steps to enter\exit or inside your home? * PCP Dr. Edwin Miranda * Pharmacy [facility] [address] * Preadmission Environment Home with Family * ADLs Independent * Equipment Cane CPAP Rolling Walker * List name and contact numbers for known caregivers / representatives who currently or will assist patient after discharge: Dwight Khanna - [facility] - [phone] * Verbal permission to speak to the caregivers and representatives has been obtained from the patient. Yes * Additional services required to return to the preadmission environment? No * Can the patient safely return to the preadmission environment? Yes * Has this patient been hospitalized within the prior 30 days at any hospital? No Coverage Notice Reviewer: HEIDI Gallegos Notice Issued Date-Time: 07/10/2019 14:40 Notice Type: IM Discharge Notice Notice Delivered To: Patient Relationship to Patient: Manager Budget Name: Delivery Method: HAND - Hand Delivered Annie Days: Prior Verbal Notification: Recipient Understood Notice: Yes Recipient Signature: Yes Med Rec Note Co-signed by Attending: Coverage Notice Comment: Reviewer: HEIDI Gallegos Notice Issued Date-Time: 07/10/2019 14:40 Notice Type: Patient Choice Letter Notice Delivered To: Patient Relationship to Patient: Manager Budget Name: Delivery Method: HAND - Hand Delivered Annie Days: Prior Verbal Notification: Recipient Understood Notice: Yes Recipient Signature: Yes Med Rec Note Co-signed by Attending: Coverage Notice Comment: [facility] RE[facility] Reviewer: HEIDI Gallegos Notice Issued Date-Time: 07/11/2019 13:10 Notice Type: Patient Choice Letter Notice Delivered To: Patient Relationship to Patient: Manager Budget Name: Delivery Method: HAND - Hand Delivered Annie Days: Prior Verbal Notification: Recipient Understood Notice: Yes Recipient Signature: Yes Med Rec Note Co-signed by Attending: Coverage Notice Comment: [facility] Reviewer: HEIDI Gallegos Notice Issued Date-Time: 07/11/2019 13:10 Notice Type: IM Discharge Notice Notice Delivered To: Patient Relationship to Patient: Manager Budget Name: Delivery Method: HAND - Hand Delivered Annie Days: Prior Verbal Notification: Recipient Understood Notice: Yes Recipient Signature: Yes Med Rec Note Co-signed by Attending: Coverage Notice Comment: Last DP export: 07/11/19 2:37 p Patient Name: ARIES KHANNA Page [id number] at 1549 All edits/amendments must be made on the electronic document DICTATION DATE: 07/11/191547 FAMILY LAW ATTORNEY: CORNELIO 07/11/191547 RPT#: [id number] DC DATE: STATUS: ADM IN [facility] [address] [place] [address] END OF REPORT
--- NOTE | 2019-07-11 16:52 | NUR ---
OT NOTE: PT COMPLETED SUPINE TO SIT WITH MIN A. PT COMPLETED ADL MOB WITH CGA. PT COMPLETED HAIR GROOMING AT EOB WITH SET UP. [phone] THANK YOU, LUCÍA CARLSON
[2019-07-11 20:27] VITALS: BP 137/72
[2019-07-12 00:56] VITALS: BP 133/83
[2019-07-12 05:19] VITALS: BP 146/84
[2019-07-12 06:07] LABS: BASOPHILS 0.4 % (0-2); EOSINOPHILS 3.8 % (0-7); HEMATOCRIT 41.7 % (42.0-54.0); IMMATURE GRANULOCYTES 0.2 % (0-5); LYMPHOCYTES 28.7 % (15-50); MCH 32.6 pg (26.0-34.0); MCHC 33.6 g/dL (31.0-37.0); MONOCYTES 9.3 % (2-11); NEUTROPHILS 57.6 % (40-80); PLATELET COUNT 169 10x3/uL (130-400); RDW 14.8 % (11.5-14.5); WBC 5.5 10x3/uL (4.8-10.8)
[2019-07-12 06:32] LABS: ALBUMIN 3.3 g/dL (3.4-5.0); ANION GAP 14.4 mmol/L (8-16); BILIRUBIN - TOTAL 1.66 mg/dL (0.2-1.3); CALCIUM 8.6 mg/dL (8.5-10.1); CARBON DIOXIDE 24.7 mmol/L (21.0-32.0); CREATININE - SERUM 1.6 mg/dL (0.6-1.3); POTASSIUM - SERUM 4.1 mmol/L (3.5-5.1); PROTEIN - SERUM 6.8 g/dL (6.4-8.2)
--- NOTE | 2019-07-12 06:45 | MORECARE ---
CASE MANAGEMENT DISCHARGE SUMMARY PATIENT: ARIES KHANNA UNIT: [id number] ADM DATE: 07/03/19 AGE: 74 : 43 SEX: M ROOM/BED: D.2114 AUTHOR: SHABNAM,DOC PHYSICIAN: REFERRING PHYSICIAN: JUVENTINO ARENAS MD DATE OF SERVICE: 07/12/19 Discharge Plan Patient Name: ARIES KHANNA Facility: [facility]:[place] : 1945 Planned Disposition: Home Anticipated Discharge Date: 07/11/19 Discharge Date: Expected LOS: 8 Initial Reviewer: [email or web address] Initial Review Date: 07/03/2019 Generated: 07/12/19 7:45 am Comments DCP- Discharge Planning Updated by [id number]: Mushtaq Gallegos on 07/11/19 2:[address] Patient Name: ARIES KHANNA Encounter No: [id number] : 1945 Primary Insurance: MEDICARE A & B Anticipated DC Date: 07-11-2019 Planned Disposition: Home DCP follow-up note: CM RECEIVED CALL FROM [facility], PT DECLINED FOR INPATIENT REHAB TOO HIGH FUNCTIONING. CM MET WITH PT IN ROOM, OFFERED HOME HEALTH. PT DECLINED AND REPORTS IF HE NEEDS HOME HEALTH, WHICH HE THINKS HE DOES NOT, HE WILL CALL THE [facility] OFF[facility] TO HAVE IT ARRANGED. PT DOES NEED HOME OXYGEN AND WALKER. PT WANTS TO USE [facility] HE USES THEM ALREADY. CHOICE SIGNED. PT DENIES FURHTER DISCHARGE NEEDS, FAMILY TO TRANSPORT HOME AT DISCHARGE. IMPORTANT MESSAGE FROM MEDICARE PROVIDED AND EXPLAINED. CM CALLED [facility], , SPOKE TO JORGE AND PROVIDED REFERRAL INFORMATION. CM FAXED REFERRAL TO [facility], . JORGE ADVISED THEY WILL DELIVER PORTABLE OXYGEN AND WALKER TO HOSPITAL TODAY AND WILL ARRANGE HOME OXYGEN WHEN PT ARRIVES AT HOME AFTER DISCHARGE. PETR Gonzales DCP- Discharge Planning Updated by [id number]: Mushtaq Gallegos on 07/11/19 7:[address] Patient Name: ARIES KHANNA Encounter No: [id number] : 1945 Primary Insurance: MEDICARE A & B Anticipated DC Date: 07-11-2019 Planned Disposition: Inpatient Rehab External Planned Provider: [facility] DCP follow-up note: CM FAXED REFERRAL UPDATE TO [facility] WITH CURRENT MAR AT [phone]. CM WAITING ADMISSION DETERMINATION FROM [facility] INPATIENT REHAB. PETR Gonzales DCP- Discharge Planning Updated by [email or web address]: Mushtaq Gallegos on 07/10/19 3:[address] Patient Name: ARIES KHANNA Encounter No: [id number] : 1945 Primary Insurance: MEDICARE A & B Anticipated DC Date: 07-11-2019 Planned Disposition: Inpatient Rehab [facility] DCP follow-up note: CM RECEIVED INPATIENT REHAB PRESCREENING ORDER, SPOKE TO PT IN ROOM REGARDING REHAB OPTIONS, LOCATIONS AND PROVIDERS. PT AND HIS SPOUSE BOTH WANT TO GO TO [facility] IT IS CLOSER TO PT'S HOME AND HE WILL GET A PRIVATE ROOM. CHOICE SIGNED. IMPORTANT MESSAGE FROM MEDICARE PROVIDED AND EXPLAINED. CM CALLED [facility] OF [facility] INPATIENT [facility], , PROVIDED REFERRAL FOR INPATIENT REHAB. CM FAXED REFERRAL INFORMATION TO [facility] WITH CURRENT MAR AT [phone]. CM WAITING ADMISSION DETERMINATION FROM [facility] INPATIENT REHAB. PETR Gonzales DCP- Discharge Planning Updated by [id number]: Martha Sin on 07/03/19 10:[address] DC PLAN: Return home with independently. ANTICIPATED DC NEEDS: Denied known dc needs in ER. CM met with patient and his to complete initial dc planning assessment. CM educated them on the CM role and verbal consent given by patient to complete assessment. CM verified patient's address, phone number, and emergency contact phone numbers. Patient lives at home with his . He reports he is independent in his care at home. At discharge patient plans to return home with his and feels this is a safe discharge. CM discussed availability of home health, rehab services, and medical equipment. Patient denied known discharge needs at this time. Transportation provider at discharge will be his . CM will continue to follow and will assist as needed with dc plans/needs. Martha Sin RN, [facility] DCPIA - Discharge Planning Initial Assessment Updated by [id number]: Martha Sin on 07/03/19 11:21 am * Is the patient Alert and Oriented? Yes * How many steps to enter\exit or inside your home? * PCP Dr. Edwin Miranda * Pharmacy [facility] [address] * Preadmission Environment Home with Family * ADLs Independent * Equipment Cane CPAP Rolling Walker * List name and contact numbers for known caregivers / representatives who currently or will assist patient after discharge: Dwight Khanna - [facility] - [phone] * Verbal permission to speak to the caregivers and representatives has been obtained from the patient. Yes * Additional services required to return to the preadmission environment? No * Can the patient safely return to the preadmission environment? Yes * Has this patient been hospitalized within the prior 30 days at any hospital? No Coverage Notice Reviewer: HEIDI Gallegos Notice Issued Date-Time: 07/10/2019 14:40 Notice Type: IM Discharge Notice Notice Delivered To: Patient Relationship to Patient: Web Services Manager Name: Delivery Method: HAND - Hand Delivered Annie Days: Prior Verbal Notification: Recipient Understood Notice: Yes Recipient Signature: Yes Med Rec Note Co-signed by Attending: Coverage Notice Comment: Reviewer: HEIDI Gallegos Notice Issued Date-Time: 07/10/2019 14:40 Notice Type: Patient Choice Letter Notice Delivered To: Patient Relationship to Patient: Web Services Manager Name: Delivery Method: HAND - Hand Delivered Annie Days: Prior Verbal Notification: Recipient Understood Notice: Yes Recipient Signature: Yes Med Rec Note Co-signed by Attending: Coverage Notice Comment: [facility] Reviewer: HEIDI Gallegos Notice Issued Date-Time: 07/11/2019 13:10 Notice Type: Patient Choice Letter Notice Delivered To: Patient Relationship to Patient: Web Services Manager Name: Delivery Method: HAND - Hand Delivered Annie Days: Prior Verbal Notification: Recipient Understood Notice: Yes Recipient Signature: Yes Med Rec Note Co-signed by Attending: Coverage Notice Comment: [facility] Reviewer: HEIDI Gallegos Notice Issued Date-Time: 07/11/2019 13:10 Notice Type: IM Discharge Notice Notice Delivered To: Patient Relationship to Patient: Web Services Manager Name: Delivery Method: HAND - Hand Delivered Annie Days: Prior Verbal Notification: Recipient Understood Notice: Yes Recipient Signature: Yes Med Rec Note Co-signed by Attending: Coverage Notice Comment: Last DP export: 07/11/19 2:49 p Patient Name: ARIES KHANNA Page [id number] at 0645 All edits/amendments must be made on the electronic document DICTATION DATE: 07/12/19644 CONSTRUCTION OPERATIONS MANAGER: CORNELIO 07/12/19644 RPT#: [id number] DC DATE: STATUS: ADM IN [facility] [address] [place] [address] END OF REPORT
--- NOTE | 2019-07-12 09:57 | NUR ---
DR. MARQUEZ RN AT BS. PEDAL PULSES POSITIVE TO LEFT FOOT.
[2019-07-12 10:38] VITALS: BP 126/85
[2019-07-12 15:26] VITALS: BP 129/87
--- NOTE | 2019-07-12 15:32 | NUR ---
LEAVING FOR CT BY BED.
[2019-07-12 16:02] LABS: APTT 34.2 SECONDS (22.8-39.4); INR 1.14 (0.85-1.17); PROTIME 14.5 SECONDS (11.6-15.0)
--- NOTE | 2019-07-12 16:17 | NUR ---
BED REST UP. GROIN STABLE.
[2019-07-12 16:19] LABS: APPEARANCE CLEAR (CLEAR); BILIRUBIN NEGATIVE (NEGATIVE); COLOR YELLOW (YELLOW); GLUCOSE NEGATIVE (NEGATIVE); KETONE NEGATIVE (NEGATIVE); NITRITE NEGATIVE (NEGATIVE); PROTEIN NEGATIVE (NEGATIVE); UROBILINOGEN NORMAL (NORMAL)
[2019-07-12 19:16] LABS: HEMATOCRIT 40.5 % (42.0-54.0); HEMOGLOBIN 13.5 g/dL (13.5-17.5); MCH 32.5 pg (26.0-34.0); MCHC 33.3 g/dL (31.0-37.0); MCV 97.4 fL (80.0-100.0); MEAN PLATELET VOLUME 9.8 fL (7.4-10.4); RBC 4.16 10x6/uL (4.20-6.10); RDW 14.5 % (11.5-14.5)
--- NOTE | 2019-07-12 19:30 | NUR ---
RECEIVED BEDSIDE REPORT. PATIENT IS ALERT AND ORIENTED, RESTING COMFORTABLY IN BED. RESPIRATIONS ARE EVEN AND UNLABORED. NO S/S MOF DISTRESS. NO C/O PAIN. CALL LIGHT WITHIN REACH. WILL CPOC.
[2019-07-12 20:30] LABS: ANION GAP 14.7 mmol/L (8-16); CALCIUM 8.3 mg/dL (8.5-10.1); CARBON DIOXIDE 24.5 mmol/L (21.0-32.0); CREATININE - SERUM 1.8 mg/dL (0.6-1.3); POTASSIUM - SERUM 4.2 mmol/L (3.5-5.1)
[2019-07-12 23:46] VITALS: BP 135/82
[2019-07-13] VITALS (24 sets, daily range): BP systolic 92–151; BP diastolic 53–88
[2019-07-13 06:33] LABS: ALBUMIN 3.6 g/dL (3.4-5.0); ANION GAP 15.1 mmol/L (8-16); BILIRUBIN - TOTAL 1.62 mg/dL (0.2-1.3); CALCIUM 8.8 mg/dL (8.5-10.1); CARBON DIOXIDE 26.1 mmol/L (21.0-32.0); CREATININE - SERUM 1.5 mg/dL (0.6-1.3); POTASSIUM - SERUM 4.2 mmol/L (3.5-5.1); PROTEIN - SERUM 6.9 g/dL (6.4-8.2)
[2019-07-13 07:29] LABS: BASOPHILS 0.2 % (0-2); EOSINOPHILS 4.6 % (0-7); HEMOGLOBIN 13.9 g/dL (13.5-17.5); IMMATURE GRANULOCYTES 0.2 % (0-5); LYMPHOCYTES 25.5 % (15-50); MCH 32.2 pg (26.0-34.0); MCHC 33.1 g/dL (31.0-37.0); MCV 97.2 fL (80.0-100.0); MEAN PLATELET VOLUME 10.2 fL (7.4-10.4); MONOCYTES 9.1 % (2-11); NEUTROPHILS 60.4 % (40-80); PLATELET COUNT 166 10x3/uL (130-400); RBC 4.32 10x6/uL (4.20-6.10); RDW 14.7 % (11.5-14.5); WBC 4.8 10x3/uL (4.8-10.8)
--- NOTE | 2019-07-13 07:53 | MORECARE ---
CASE MANAGEMENT DISCHARGE SUMMARY PATIENT: ARIES KHANNA UNIT: [id number] ADM DATE: 07/03/19 AGE: 74 : 41 SEX: M ROOM/BED: D.2114 AUTHOR: SHABNAM,DOC PHYSICIAN: REFERRING PHYSICIAN: JUVENTINO ARENAS MD DATE OF SERVICE: 07/13/19 Discharge Plan Patient Name: ARIES KHANNA Facility: [facility]:[place] : 1945 Planned Disposition: Home Anticipated Discharge Date: 07/11/19 Discharge Date: Expected LOS: 8 Initial Reviewer: [id number] Initial Review Date: 07/03/2019 Generated: 07/13/19 8:53 am Comments DCP- Discharge Planning Updated by [id number]: Mushtaq Gallegos on 07/11/19 2:[address] Patient Name: ARIES KHANNA Encounter No: [id number] : 1945 Primary Insurance: MEDICARE A & B Anticipated DC Date: 07-11-2019 Planned Disposition: Home DCP follow-up note: CM RECEIVED CALL FROM [facility], PT DECLINED FOR INPATIENT REHAB TOO HIGH FUNCTIONING. CM MET WITH PT IN ROOM, OFFERED HOME HEALTH. PT DECLINED AND REPORTS IF HE NEEDS HOME HEALTH, WHICH HE THINKS HE DOES NOT, HE WILL CALL THE [facility] TO HAVE IT ARRANGED. PT DOES NEED HOME OXYGEN AND WALKER. PT WANTS TO USE [facility] HE USES THEM ALREADY. CHOICE SIGNED. PT DENIES FURHTER DISCHARGE NEEDS, FAMILY TO TRANSPORT HOME AT DISCHARGE. IMPORTANT MESSAGE FROM MEDICARE PROVIDED AND EXPLAINED. CM CALLED [facility], , SPOKE TO JORGE AND PROVIDED REFERRAL INFORMATION. CM FAXED REFERRAL TO [facility], . JORGE ADVISED THEY WILL DELIVER PORTABLE OXYGEN AND WALKER TO HOSPITAL TODAY AND WILL ARRANGE HOME OXYGEN WHEN PT ARRIVES AT HOME AFTER DISCHARGE. PETR Gonzales DCP- Discharge Planning Updated by [id number]: Mushtaq Gallegos on 07/11/19 7:[address] Patient Name: ARIES KHANNA Encounter No: [id number] : 1945 Primary Insurance: MEDICARE A & B Anticipated DC Date: 07-11-2019 Planned Disposition: Inpatient Rehab External Planned Provider: [facility] DCP follow-up note: CM FAXED REFERRAL UPDATE TO [facility] WITH CURRENT MAR AT [phone]. CM WAITING ADMISSION DETERMINATION FROM [facility] INPATIENT REHAB. PETR Gonzales DCP- Discharge Planning Updated by [id number]: Mushtaq Gallegos on 07/10/19 3:[address] Patient Name: ARIES KHANNA Encounter No: [id number] : 1945 Primary Insurance: MEDICARE A & B Anticipated DC Date: 07-11-2019 Planned Disposition: Inpatient Rehab External [facility] DCP follow-up note: CM RECEIVED INPATIENT REHAB PRESCREENING ORDER, SPOKE TO PT IN ROOM REGARDING REHAB OPTIONS, LOCATIONS AND PROVIDERS. PT AND HIS SPOUSE BOTH WANT TO GO TO [facility] IT IS CLOSER TO PT'S HOME AND HE WILL GET A PRIVATE ROOM. CHOICE SIGNED. IMPORTANT MESSAGE FROM MEDICARE PROVIDED AND EXPLAINED. CM CALLED [facility] OF [facility] INPATIENT REH[facility], , PROVIDED REFERRAL FOR INPATIENT REHAB. CM FAXED REFERRAL INFORMATION TO [facility] WITH CURRENT MAR AT [phone]. CM WAITING ADMISSION DETERMINATION FROM [facility] INPATIENT REHAB. PETR Gonzales DCP- Discharge Planning Updated by [id number]: Martha Sin on 07/03/19 10:[address] DC PLAN: Return home with independently. ANTICIPATED DC NEEDS: Denied known dc needs in ER. CM met with patient and his to complete initial dc planning assessment. CM educated them on the CM role and verbal consent given by patient to complete assessment. CM verified patient's address, phone number, and emergency contact phone numbers. Patient lives at home with his . He reports he is independent in his care at home. At discharge patient plans to return home with his and feels this is a safe discharge. CM discussed availability of home health, rehab services, and medical equipment. Patient denied known discharge needs at this time. Transportation provider at discharge will be his . CM will continue to follow and will assist as needed with dc plans/needs. Martha Sin RN, [facility] DCPIA - Discharge Planning Initial Assessment Updated by [id number]: Martha Sin on 07/03/19 11:21 am * Is the patient Alert and Oriented? Yes * How many steps to enter\exit or inside your home? * PCP Dr. Edwin Miranda * Pharmacy [facility] [address] * Preadmission Environment Home with Family * ADLs Independent * Equipment Cane CPAP Rolling Walker * List name and contact numbers for known caregivers / representatives who currently or will assist patient after discharge: Dwight Khanna - [facility] - [phone] * Verbal permission to speak to the caregivers and representatives has been obtained from the patient. Yes * Additional services required to return to the preadmission environment? No * Can the patient safely return to the preadmission environment? Yes * Has this patient been hospitalized within the prior 30 days at any hospital? No Coverage Notice Reviewer: HEIDI Gallegos Notice Issued Date-Time: 07/10/2019 14:40 Notice Type: IM Discharge Notice Notice Delivered To: Patient Relationship to Patient: Mash Filter Cloth Changer Name: Delivery Method: HAND - Hand Delivered Annie Days: Prior Verbal Notification: Recipient Understood Notice: Yes Recipient Signature: Yes Med Rec Note Co-signed by Attending: Coverage Notice Comment: Reviewer: HEIDI Gallegos Notice Issued Date-Time: 07/10/2019 14:40 Notice Type: Patient Choice Letter Notice Delivered To: Patient Relationship to Patient: Mash Filter Cloth Changer Name: Delivery Method: HAND - Hand Delivered Annie Days: Prior Verbal Notification: Recipient Understood Notice: Yes Recipient Signature: Yes Med Rec Note Co-signed by Attending: Coverage Notice Comment: [facility] Reviewer: HEIDI Gallegos Notice Issued Date-Time: 07/11/2019 13:10 Notice Type: Patient Choice Letter Notice Delivered To: Patient Relationship to Patient: Mash Filter Cloth Changer Name: Delivery Method: HAND - Hand Delivered Annie Days: Prior Verbal Notification: Recipient Understood Notice: Yes Recipient Signature: Yes Med Rec Note Co-signed by Attending: Coverage Notice Comment: [facility] Reviewer: HEIDI Gallegos Notice Issued Date-Time: 07/11/2019 13:10 Notice Type: IM Discharge Notice Notice Delivered To: Patient Relationship to Patient: Mash Filter Cloth Changer Name: Delivery Method: HAND - Hand Delivered Annie Days: Prior Verbal Notification: Recipient Understood Notice: Yes Recipient Signature: Yes Med Rec Note Co-signed by Attending: Coverage Notice Comment: Last DP export: 07/12/19 5:45 a Patient Name: ARIES KHANNA Page [phone] at 0753 All edits/amendments must be made on the electronic document DICTATION DATE: 07/13/19752 RAT EXTERMINATOR: CORNELIO 07/13/19752 RPT#: [id number] DC DATE: STATUS: ADM IN [address] [place] [address] END OF REPORT
--- NOTE | 2019-07-13 08:47 | MORECARE ---
CASE MANAGEMENT DISCHARGE SUMMARY PATIENT: ARIES KHANNA UNIT: [id number] ADM DATE: 07/03/19 AGE: 74 : 43 SEX: M ROOM/BED: D.2114 AUTHOR: HSABNAM,DOC PHYSICIAN: REFERRING PHYSICIAN: JUVENTINO ARENAS MD DATE OF SERVICE: 07/13/19 Discharge Plan Patient Name: ARIES KHANNA Facility: [facility]:[place] : 1945 Planned Disposition: Home Anticipated Discharge Date: 07/11/19 Discharge Date: Expected LOS: 8 Initial Reviewer: [email or web address] Initial Review Date: 07/03/2019 Generated: 07/13/19 9:46 am Comments DCP- Discharge Planning Updated by [email or web address]: Mushtaq Gallegos on 07/13/19 7:[address] Patient Name: ARIES KHANNA Encounter No: [id number] : 1945 Primary Insurance: MEDICARE A & B Anticipated DC Date: 07-11-2019 Planned Disposition: Home DCP follow-up note: CM RECEIVED CALL FROM JORGE OF [facility], , SPOKE TO JORGE WHO INFORMED CM THAT THEY WILL NEED NEW OXYGEN TESTING PRIOR TO DELIVERING OXYGEN FOR PT TO DISCHARGE HOME. CM FAXED CURRENT MEDICATIONS LIST TO [facility], . WITH RECEIPT OF QUALIFYING OXYGEN TESTING, [facility] WILL DELIVER PORTABLE OXYGEN AND WALKER TO HOSPITAL FOR DISCHARGE AND WILL ARRANGE HOME OXYGEN WHEN PT ARRIVES AT HOME AFTER DISCHARGE. PETR Gonzales DCP- Discharge Planning Updated by [id number]: Mushtaq Gallegos on 07/11/19 2:[address] Patient Name: ARIES KHANNA Encounter No: [id number] : 1945 Primary Insurance: MEDICARE A & B Anticipated DC Date: 07-11-2019 Planned Disposition: Home DCP follow-up note: CM RECEIVED CALL FROM [facility], PT DECLINED FOR INPATIENT REHAB TOO HIGH FUNCTIONING. CM MET WITH PT IN ROOM, OFFERED HOME HEALTH. PT DECLINED AND REPORTS IF HE NEEDS HOME HEALTH, WHICH HE THINKS HE DOES NOT, HE WILL CALL THE [facility] TO HAVE IT ARRANGED. PT DOES NEED HOME OXYGEN AND WALKER. PT WANTS TO USE [facility] HE USES THEM ALREADY. CHOICE SIGNED. PT DENIES FURHTER DISCHARGE NEEDS, FAMILY TO TRANSPORT HOME AT DISCHARGE. IMPORTANT MESSAGE FROM MEDICARE PROVIDED AND EXPLAINED. CM CALLED [facility], , SPOKE TO JORGE AND PROVIDED REFERRAL INFORMATION. CM FAXED REFERRAL TO [facility], . JORGE ADVISED THEY WILL DELIVER PORTABLE OXYGEN AND WALKER TO HOSPITAL TODAY AND WILL ARRANGE HOME OXYGEN WHEN PT ARRIVES AT HOME AFTER DISCHARGE. PETR Gonzales DCP- Discharge Planning Updated by [id number]: Mushtaq Gallegos on 07/11/19 7:[address] Patient Name: ARIES KHANNA Encounter No: [id number] : 1945 Primary Insurance: MEDICARE A & B Anticipated DC Date: 07-11-2019 Planned Disposition: Inpatient Rehab External [facility] DCP follow-up note: CM FAXED REFERRAL UPDATE TO [facility] WITH CURRENT MAR AT [phone]. CM WAITING ADMISSION DETERMINATION FROM [facility] INPATIENT REHAB. PETR Gonzales DCP- Discharge Planning Updated by [id number]: Mushtaq Gallegos on 07/10/19 3:[address] Patient Name: ARIES KHANNA Encounter No: [id number] : 1945 Primary Insurance: MEDICARE A & B Anticipated DC Date: 07-11-2019 Planned Disposition: Inpatient Rehab External Planned Provider: [facility] DCP follow-up note: CM RECEIVED INPATIENT REHAB PRESCREENING ORDER, SPOKE TO PT IN ROOM REGARDING REHAB OPTIONS, LOCATIONS AND PROVIDERS. PT AND HIS SPOUSE BOTH WANT TO GO TO [facility] ER IT IS CLOSER TO PT'S HOME AND HE WILL GET A PRIVATE ROOM. CHOICE SIGNED. IMPORTANT MESSAGE FROM MEDICARE PROVIDED AND EXPLAINED. CM CALLED [facility]AE OF [facility] ER INPATIENT REHAB, , PROVIDED REFERRAL FOR INPATIENT REHAB. CM FAXED REFERRAL INFORMATION TO [facility] ER WITH CURRENT MAR AT [phone]. CM WAITING ADMISSION DETERMINATION FROM [facility] INPATIENT REHAB. PETR Gonzales DCP- Discharge Planning Updated by [id number]: Martha Sin on 07/03/19 10:[address] DC PLAN: Return home with independently. ANTICIPATED DC NEEDS: Denied known dc needs in ER. CM met with patient and his to complete initial dc planning assessment. CM educated them on the CM role and verbal consent given by patient to complete assessment. CM verified patient's address, phone number, and emergency contact phone numbers. Patient lives at home with his . He reports he is independent in his care at home. At discharge patient plans to return home with his and feels this is a safe discharge. CM discussed availability of home health, rehab services, and medical equipment. Patient denied known discharge needs at this time. Transportation provider at discharge will be his . CM will continue to follow and will assist as needed with dc plans/needs. Martha Sin RN, [facility] DCPIA - Discharge Planning Initial Assessment Updated by [email or web address]: Martha Sin on 07/03/19 11:21 am * Is the patient Alert and Oriented? Yes * How many steps to enter\exit or inside your home? * PCP Dr. Edwin Miranda * Pharmacy [facility] [address] * Preadmission Environment Home with Family * ADLs Independent * Equipment Cane CPAP Rolling Walker * List name and contact numbers for known caregivers / representatives who currently or will assist patient after discharge: Dwight Khanna - spouse - [phone] * Verbal permission to speak to the caregivers and representatives has been obtained from the patient. Yes * Additional services required to return to the preadmission environment? No * Can the patient safely return to the preadmission environment? Yes * Has this patient been hospitalized within the prior 30 days at any hospital? No Coverage Notice Reviewer: [id number] Edenilson Gallegos Notice Issued Date-Time: 07/11/2019 13:10 Notice Type: Patient Choice Letter Notice Delivered To: Patient Relationship to Patient: Housekeeper Caregiver Name: Delivery Method: HAND - Hand Delivered Annie Days: Prior Verbal Notification: Recipient Understood Notice: Yes Recipient Signature: Yes Med Rec Note Co-signed by Attending: Coverage Notice Comment: [facility] PATIENT Reviewer: [id number] Edenilson Gallegos Notice Issued Date-Time: 07/10/2019 14:40 Notice Type: Patient Choice Letter Notice Delivered To: Patient Relationship to Patient: Housekeeper Caregiver Name: Delivery Method: HAND - Hand Delivered Annie Days: Prior Verbal Notification: Recipient Understood Notice: Yes Recipient Signature: Yes Med Rec Note Co-signed by Attending: Coverage Notice Comment: [facility] INPATIENT REHAB Reviewer: [id number] - Mushtaq Gallegos Notice Issued Date-Time: 07/11/2019 13:10 Notice Type: IM Discharge Notice Notice Delivered To: Patient Relationship to Patient: Housekeeper Caregiver Name: Delivery Method: HAND - Hand Delivered Annie Days: Prior Verbal Notification: Recipient Understood Notice: Yes Recipient Signature: Yes Med Rec Note Co-signed by Attending: Coverage Notice Comment: Reviewer: [id number] Edenilson Gallegos Notice Issued Date-Time: 07/10/2019 14:40 Notice Type: IM Discharge Notice Notice Delivered To: Patient Relationship to Patient: Housekeeper Caregiver Name: Delivery Method: HAND - Hand Delivered Annie Days: Prior Verbal Notification: Recipient Understood Notice: Yes Recipient Signature: Yes Med Rec Note Co-signed by Attending: Coverage Notice Comment: Last DP export: 07/13/19 6:53 a Patient Name: ARIES KHANNA Page [phone] at 0847 All edits/amendments must be made on the electronic document DICTATION DATE: 07/13/19845 BUSINESS IMPROVEMENT MANAGER: CORNELIO 07/13/19845 RPT#: [id number] DC DATE: STATUS: ADM IN [facility] [address] [place] [address] END OF REPORT
--- NOTE | 2019-07-13 09:44 | NUR ---
PT RECEIVED FROM OR AT THIS TIME. VS STATED HR 93 NSR BP 119/64 VIA R RADIAL ART LINE WITH GOOD WAVEFORM EXTREMETY PINK WITH GOOD SENSATION WRIST PROTECTOR ON. O2 VIA 4L NC O2 SAT 98%. RR 16 NONLABORED BILAT LUNGS CLEAR. 37.0C VIA ROSADO. [facility]. [facility]
[2019-07-13 10:11] LABS: HEMATOCRIT 35.5 % (42.0-54.0); HEMOGLOBIN 11.4 g/dL (13.5-17.5)
--- NOTE | 2019-07-13 10:18 | NUR ---
FAMILY AT BEDSIDE. GIVEN UPDATE
--- NOTE | 2019-07-13 11:40 | NUR ---
RECEIVED PATIENT FROM ICU VIA BED. PATIENT ALERT AND ORIENTED X 4, STATES LEFT GROIN AREA HAS A BURNING SENSATION RATES 5/10, NOTED EXTENSIVE BRUISING TO PUBIC AREA TO LEFT LATERAL THIGH. DISTAL PULSE PALPABLE +1 TO DP AND PT. RIGHT DISTAL PULSES DP AND PT +2. NTG INFUSING AT 10 MCG/MIN, PLASMOLYTE INFUSING AT 100 ML/HR. VSS. ART LINE AND CVP LINE LEVELED AND ZEROED. IV 20 GA TO RIGHT AC NSL. CVL TO RIGHT SUBCLAVIAN, DRESSING C/D/I. DRESSING TO LEFT SUBCLAVIAN C/D/I. RIGHT ART LINE INPLACE. ROSADO CATH IN PLACE WITH DARK GILDA UOP. PATIENT ON O2 AT 2 LPM VIA NC. HEAD TO TOE ASSESMENT COMPLETED.
--- NOTE | 2019-07-13 11:50 | NUR ---
PATIENTS AT BEDSIDE. UPDATED AND QUESTIONS ANSWERED.
--- NOTE | 2019-07-13 12:00 | NUR ---
MORNING MEDS GIVEN PER DR. LIN AT THIS TIME. ZINCEF INFUSION STARTED. TO DECREASE PLASMOLYTE TO TKO 10 ML/HR AND NTG GTT STOPPED. OKAY TO DC ART LINE. VSS.
--- NOTE | 2019-07-13 13:33 | NUR ---
Nutrition Consult/Follow-up: Received consult for diabetic diet education. 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 Diet: Cardiac PO intake: 100% Wt: 244.7# (07/12) Labs noted: Glu 129, A1C 6.0 Meds noted: Regdawit Humulin -Will try to educate prior to d/c; pt s/p procedure today. -RD following.
--- NOTE | 2019-07-13 13:51 | NUR ---
RIGHT ART LINE AND RIGHT 20 GA IV DISCONTINUED. PRESSURE HELD FOR APPROXIMATLEY 5 MIN TO ART LINE INSERTION POINT, NO BLEEDING/NO HEMATOMA NOTED. 2X2 AND TEGADERM DRESSING APPLIED. VSS.
--- NOTE | 2019-07-13 15:09 | NUR ---
REASSESSMENT COMPLETED. RIGHT GROIN SITE WITH NO CHANGES, DISTAL DP PALPABLE +2. EMPTIED 30 CC BLOODY DRAINAGE. BULB COMPRESSED. VSS.
--- NOTE | 2019-07-13 15:22 | NUR ---
AT ROOM UPDATED AND EXAMINES PATIENT.
--- NOTE | 2019-07-13 16:07 | NUR ---
PATIENTS NEPHEW AT BEDSIDE UPDATED AND QUESTIONS ANSWERED. VISITING WITH PATIENT. WILL ASK TO BRING CPAP FROM HOME FOR TONIGHT.
--- NOTE | 2019-07-13 16:39 | NUR ---
PATIENT GIVEN DINNER TRAY. NO NEEDS AT THIS TIME. VSS.
--- NOTE | 2019-07-13 16:41 | NUR ---
PATIENT SPO2 - 98% ON 2 LPM O2 VIA NC, O2 DISCONTINUED SPO2 - 95% ON RA. WILL MONITOR. PATIENT NOT ON 02 AT HOME.
[2019-07-14] VITALS (23 sets, daily range): BP systolic 100–167; BP diastolic 39–94
--- NOTE | 2019-07-14 06:00 | NUR ---
ROSADO REMOVED PER ORDER. UOP HAS BEEN AVERAGING AROUND 200 ML/HR. WAS C/O DISCOMFORT DUE TO ROSADO. STATES THAT HE IS FEELING RELIEVED NOW THAT IT IS OUT. PPP. DRSG CDI.
[2019-07-14 06:24] LABS: ALBUMIN 3.3 g/dL (3.4-5.0); ANION GAP 12.7 mmol/L (8-16); BILIRUBIN - TOTAL 1.5 mg/dL (0.2-1.3); CALCIUM 8.6 mg/dL (8.5-10.1); CARBON DIOXIDE 27.7 mmol/L (21.0-32.0); CREATININE - SERUM 1.7 mg/dL (0.6-1.3); POTASSIUM - SERUM 4.4 mmol/L (3.5-5.1); PROTEIN - SERUM 6.7 g/dL (6.4-8.2)
[2019-07-14 06:28] LABS: BASOPHILS 0.1 % (0-2); EOSINOPHILS 2.2 % (0-7); HEMATOCRIT 39.4 % (42.0-54.0); HEMOGLOBIN 12.6 g/dL (13.5-17.5); IMMATURE GRANULOCYTES 0.1 % (0-5); MCH 31.4 pg (26.0-34.0); MCV 98.3 fL (80.0-100.0); MEAN PLATELET VOLUME 9.9 fL (7.4-10.4); MONOCYTES 8.4 % (2-11); NEUTROPHILS 75.2 % (40-80); PLATELET COUNT 156 10x3/uL (130-400); RBC 4.01 10x6/uL (4.20-6.10); RDW 14.7 % (11.5-14.5)
[2019-07-14 06:30] LABS: WBC 7.4 10x3/uL (4.8-10.8)
--- NOTE | 2019-07-14 07:00 | NUR ---
RECEIVED BEDSIDE REPORT ON PATIENT AND ASSUMED CARE. PATIENT RESTING QUIETLY, EASILY AROUSED BY VOICE, ALERT AND ORIENTED X 4. CM - SR RATE OF 94, SPO2 - 94% ON RA, BBS CLEAR AND EQUAL, LEFT GROIN SITE DRESSING INTACT, NO HEMATOMA NOTED, RIGHT DP PULSE +2, LEFT DP +1. RIGHT SUBCLAVIAN CVL WITH DRESSING C/D/I, ZINACEF INFUSING AT 11.4 ML/HR. HEAD TO TOE ASSESSMENT COMPLETED.
--- NOTE | 2019-07-14 07:54 | NUR ---
PATIENT SITTING UP ON SIDE OF BED, GIVEN BREAKFAST TRAY. VSS. NO NEEDS AT THIS TIME.
--- NOTE | 2019-07-14 08:08 | NUR ---
DR. LIN AT ROOM UPDATED AND EXAMINED PATIENT. OKAY TO MOVE TO THE FLOOR.
--- NOTE | 2019-07-14 09:37 | NUR ---
SPOKE TO DR. MCKENNA REGARDING PATIENTS SYSTOLIC BP RUNNING IN THE 150S TO 160S, ADVISED TO START PATIENTS HOME BP MEDICATION. OKAY TO MOVE TO FLOOR.
--- NOTE | 2019-07-14 10:10 | NUR ---
DR. MCKENNA AT ROOM UPDATED AND EXAMINES PATIENT. ANSWERS PATIENTS AND WIFES QUESTIONS. VSS.
--- NOTE | 2019-07-14 10:53 | NUR ---
EMPTIED 200 CC BLOODY DRAINAGE FROM JASMINA DRAIN. LEFT GROIN SITE WITH NO CHANGES AND DISTAL DP PULSE +2 TO LEFT FOOT. VSS. REASSESSMENT COMPLETED.
--- NOTE | 2019-07-14 11:44 | NUR ---
PATIENT WATCHING TV. VSS. SET UP LUNCH TRAY NO NEEDS AT THIS TIME.
--- NOTE | 2019-07-14 11:54 | OP ---
PATIENT NAME: ARIES KHANNA MEDICAL RECORD: [id number] :[birth year] LOCATION:[id number] ADMISSION DATE:07/03/19 SURGEON: DEEPAK BROWN MD DATE OF OPERATION: 07/13/2019 SURGEON: Deepak Brown MD CORN HUSKER: None. PROCEDURE: Repair of left femoral artery pseudoaneurysm. PREOPERATIVE DIAGNOSES: Left femoral artery pseudoaneurysm after arterial puncture for cardiac catheterization, pulmonary embolus, multiple anticoagulants. POSTOPERATIVE DIAGNOSES: Left femoral artery pseudoaneurysm after arterial puncture for cardiac catheterization, pulmonary embolus, multiple anticoagulants. ANESTHESIA: General endotracheal anesthesia. ESTIMATED BLOOD LOSS: 800 cc with 380 cc Cell Saver re-transfused. COMPLICATIONS: None. SPECIMENS: None. CONDITION: Stable. DISPOSITION: ICU. OPERATIVE FINDINGS: As expected from the CT scan and ultrasound, it was a bilobed area of flow above the artery with clotted hematoma more superficially. The cath site was slightly lateral of anterior and primary repair was successful, drain placed. INDICATION: Pseudoaneurysm with pain. PROCEDURE IN DETAIL: The patient was brought to the operative suite. General anesthesia was obtained. The groin was prepped and draped. An oblique incision was made paralleling the inguinal crease, taken down through the hematoma, which was removed and then into the pseudoaneurysm cavity. Direct pressure was held on the artery. The artery was dissected out and a clamp was briefly placed while the sutures were placed within the arterial puncture site. The clamp was released. There was no bleeding. Thorough irrigation was undertaken. All bits of clot were removed. A drain was placed through a separate stab wound. The wound was then closed with two layers and clips. The patient to ICU, stable. TRANSINT:[id number] Voice Confirmation ID: [id number] DOCUMENT ID: [id number] OPERATIVE REPORT [id number] ARIES KHANNA DEEPAK BROWN MD at 1154 CC: JULIET CHRISTINE [id number] DICTATION DATE: 07/13/19 1108 PROJECT MANAGEMENT SPECIALIST: 07/13/19 1247 ADM IN [facility] [place] [id number] [place] [address]
--- NOTE | 2019-07-14 13:05 | NUR ---
Nutrition Follow-up: Eating well. 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 Diet: Cardiac PO intake: 100% Wt: 244.7# (07/12) Labs noted: Glu 137, Alb 3.3, A1C 6.0 Meds noted: Humulin, Protonix -Change to cardiac diabetic diet. -Provided education/written information to pt and . Questions answered. -RD following.
--- NOTE | 2019-07-14 14:22 | NUR ---
DR. BEEBE PAGED TO NOTIFY OF CONSULT.
--- NOTE | 2019-07-14 14:26 | NUR ---
DR. BEEBE RETURNED THE PAGE AND WAS NOTIFIED OF THE CONSULT. STATES WILL BE ON THE UNIT LATER THIS AFTERNOON.
--- NOTE | 2019-07-14 14:50 | NUR ---
DR. BEEBE AT ROOM UPDATED AND EXAMINES PATIENT.
--- NOTE | 2019-07-14 14:59 | NUR ---
REASSESSMENT COMPLETED. VSS. EMPTIED 20 CC BLOODY DRAINAGE FROM JASMINA DRAIN. LEFT GROIN SITE, SOFT, NO HEMATOMA OR BLEEDING NOTED. PT AND DP PULSES +2.
--- NOTE | 2019-07-14 15:56 | NUR ---
LABS DRAWN AND SENT TO LAB.
--- NOTE | 2019-07-14 16:24 | NUR ---
PATIENTS AT BEDSIDE, UPDATED AND QUESTIONS ANSWERED.
--- NOTE | 2019-07-14 16:38 | NUR ---
PATIENT GIVEN DINNER TRAY. VSS.
--- NOTE | 2019-07-14 17:00 | NUR ---
PATIENT ATE APPROXIMATELY 30% OF DINNER TRAY, C/O NAUSEA, GIVEN PRN ZOFRAN IVP WITH NS FLUSH. VSS.
--- NOTE | 2019-07-14 19:00 | NUR ---
Patient assessment completed at this time. No changes noted from nurse report. Patient resting with eyes closed awakes to name, patient alert oriented x4. Patient denies any complaints or distress at this time. Vital signs stable.
--- NOTE | 2019-07-14 21:00 | NUR ---
Patient given not on meds at this time. No distress noted. Patient request snack to eat, states that he did not eat very much supper, and that he was feeling hungry at this time. Patient provided turkey sandwich.Patient fingerstick glucose was checked, was noted to be 177, patient was treated with sliding scale insulin. Vital signs stable at this time.
--- NOTE | 2019-07-14 23:00 | NUR ---
Patient resting with eyes closed, respirations even nonlabored. Vital signs stable at this time, no distress noted. We will continue to monitor.
[2019-07-15] VITALS (10 sets, daily range): BP systolic 96–127; BP diastolic 52–79
--- NOTE | 2019-07-15 01:00 | NUR ---
Patient resting with eyes closed, respirations even nonlabored. No distress noted, vital signs stable at this time.
--- NOTE | 2019-07-15 03:33 | NUR ---
Patient resting with eyes closed, respirations even nonlabored. No distress noted, vital signs stable at this time.
--- NOTE | 2019-07-15 05:00 | NUR ---
PATIENT RESTING WITH EYES CLOSED, RESPIRATIONS EVEN NONLABORED NO DISTRESS NOTED.
--- NOTE | 2019-07-15 07:15 | NUR ---
UP IN CHAIR AT BEDSIDE. SKIN WARM AND DRY. MINIMAL PAIN LEFT GROIN. JASMINA DRAIN INTACT. SMALL AMOUNT SERSANG DRAINAGE IN BULB. VOIDING CLEAR PALE YELLOW URINE. MONITOR SR. RIGHT SUBCLAVIAN DRESSING DRY AND INTACT. NO DISTRESS.
--- NOTE | 2019-07-15 08:00 | NUR ---
BREAKFAST SERVED ATE WELL. VISITORS HERE.
--- NOTE | 2019-07-15 09:00 | NUR ---
PO MEDS TAKEN WITHOUT DIFFICUTLY. NO DISTRESS. ON ROOM AIR.
--- NOTE | 2019-07-15 10:23 | NUR ---
DR. LIN HERE ORDERS RECEIVED TO PULL JASMINA DRAIN
[2019-07-15] MEDS ORDERED: ELIQUIS5 MG PO (10:38)
[2019-07-15] MEDS ORDERED: LOPRESSOR25 MG PO (10:39)
[2019-07-15] MEDS ORDERED: PLAVIX75 MG PO (10:39)
[2019-07-15] MEDS ORDERED: COZAAR50 MG PO (10:39)
[2019-07-15] MEDS ORDERED: PROTONIX40 MG PO (10:39)
--- NOTE | 2019-07-15 11:00 | NUR ---
AMBULATED TO BED WITH MINIMAL ASSISTANCES. JASMINA DRAIN LEFT GROIN REMOVED. PATIENT TOLERATED FAIR. BETADINE OINT TO INCISION. SOTO INTACT NO REDNESS OR DRAINAGE NOTED. OPEN WOUND COVERED WITH 4X4 SECURE WITH TEGRADERM.
--- NOTE | 2019-07-15 11:30 | NUR ---
AMBULATED IN [place] WITH WALKER WITH NURSE, PULSE OX DROPPED TO 82%. PATIENT TOLERATED FAIR. PULSE OX RETURNED TO 94% LESS THAN 3 MIN. PATIENT DID BECOME SHORT OF BREATH.
[2019-07-15 11:37] LABS: ANION GAP 11.6 mmol/L (8-16); CALCIUM 8.8 mg/dL (8.5-10.1); CARBON DIOXIDE 30.5 mmol/L (21.0-32.0); CREATININE - SERUM 1.8 mg/dL (0.6-1.3); POTASSIUM - SERUM 4.1 mmol/L (3.5-5.1)
--- NOTE | 2019-07-15 12:00 | NUR ---
LUNCH TRAY SERVED
--- NOTE | 2019-07-15 12:36 | NUR ---
FAMILY HERE UPDATE GIVEN.
[2019-07-15 13:09] LABS: ALPHA FETOPROTEIN -(TUMOR MRK) 2.9 ng/mL (0.0-8.3)
--- NOTE | 2019-07-15 16:18 | MORECARE ---
CASE MANAGEMENT DISCHARGE SUMMARY PATIENT: ARIES KHANNA UNIT: [id number] ADM DATE: 07/03/19 AGE: 74 : 43 SEX: M ROOM/BED: D[facility] AUTHOR: SHABNAM,DOC PHYSICIAN: REFERRING PHYSICIAN: JUVENTINO ARENAS MD DATE OF SERVICE: 07/15/19 Discharge Plan Patient Name: ARIES KHANNA Facility: [facility]:[place] : 1945 Planned Disposition: Home Anticipated Discharge Date: 07/11/19 Discharge Date: Expected LOS: 8 Initial Reviewer: [email or web address] Initial Review Date: 07/03/2019 Generated: 07/15/19 5:17 pm Comments DCP- Discharge Planning Updated by [email or web address]: Lesly Holcomb on 07/15/19 3:[address] Patient Name: ARIES KHANNA Admission Status: Elective Accout number: [id number] Admission Date: 07-03-2019 : 1945 Admission Diagnosis:SEPSIS, UNSPECIFIED ORGANISM Attending: OLIVIA Current LOS: 12 Anticipated DC Date: 07-11-2019 Planned Disposition: Home Primary Insurance: MEDICARE A & B Discharge Planning Comments: CM received notice of discharge. Patient needs new walk test for home 02. CM spoke with nursing to get walk test. Patient did meet for home 02. CM called [facility] answering service and faxed new walk test. [facility] to deliver portable 02 to patient's room and walker today. D/C IMM signed 07/15/2019 @ 1140. CM will continue to follow and assist as needed with discharge planning / needs. Sales And Service Officer: Lesly Holcomb DCP- Discharge Planning Updated by [email or web address]: Mushtaq Gallegos on 07/13/19 7:[address] Patient Name: ARIES KHANNA Encounter No: [id number] : 1945 Primary Insurance: MEDICARE A & B Anticipated DC Date: 07-11-2019 Planned Disposition: Home DCP follow-up note: CM RECEIVED CALL FROM J[facility]GE OF [facility], , SPOKE TO JORGE WHO INFORMED CM THAT THEY WILL NEED NEW OXYGEN TESTING PRIOR TO DELIVERING OXYGEN FOR PT TO DISCHARGE HOME. CM FAXED CURRENT MEDICATIONS LIST TO [facility], . WITH RECEIPT OF QUALIFYING OXYGEN TESTING, [facility] WILL DELIVER PORTABLE OXYGEN AND WALKER TO HOSPITAL FOR DISCHARGE AND WILL ARRANGE HOME OXYGEN WHEN PT ARRIVES AT HOME AFTER DISCHARGE. PETR Gonzales DCP- Discharge Planning Updated by [id number]: Mushtaq Gallegos on 07/11/19 2:[address] Patient Name: ARIES KHANNA Encounter No: [id number] : 1945 Primary Insurance: MEDICARE A & B Anticipated DC Date: 07-11-2019 Planned Disposition: Home DCP follow-up note: CM RECEIVED CALL FROM [facility], PT DECLINED FOR INPATIENT REHAB TOO HIGH FUNCTIONING. CM MET WITH PT IN ROOM, OFFERED HOME HEALTH. PT DECLINED AND REPORTS IF HE NEEDS HOME HEALTH, WHICH HE THINKS HE DOES NOT, HE WILL CALL THE [facility] TO HAVE IT ARRANGED. PT DOES NEED HOME OXYGEN AND WALKER. PT WANTS TO USE [facility] HE USES THEM ALREADY. CHOICE SIGNED. PT DENIES FURHTER DISCHARGE NEEDS, FAMILY TO TRANSPORT HOME AT DISCHARGE. IMPORTANT MESSAGE FROM MEDICARE PROVIDED AND EXPLAINED. JAMAR CALLED [facility], , SPOKE TO JORGE AND PROVIDED REFERRAL INFORMATION. CM FAXED REFERRAL TO [facility], . JORGE ADVISED THEY WILL DELIVER PORTABLE OXYGEN AND WALKER TO HOSPITAL TODAY AND WILL ARRANGE HOME OXYGEN WHEN PT ARRIVES AT HOME AFTER DISCHARGE. PETR Gonzales DCP- Discharge Planning Updated by [email or web address]: Mushtaq Gallegos on 07/11/19 7:[address] Patient Name: ARIES KHANNA Encounter No: [id number] : 1945 Primary Insurance: MEDICARE A & B Anticipated DC Date: 07-11-2019 Planned Disposition: Inpatient Rehab External Planned Provider: [facility] DCP follow-up note: CM FAXED REFERRAL UPDATE TO [facility] WITH CURRENT MAR AT [phone]. JAMAR WAITING ADMISSION DETERMINATION FROM [facility]. PETR Gonzales DCP- Discharge Planning Updated by [email or web address]: Mushtaq Gallegos on 07/10/19 3:[address] Patient Name: ARIES KHANNA Encounter No: [id number] : 1945 Primary Insurance: MEDICARE A & B Anticipated DC Date: 07-11-2019 Planned Disposition: Inpatient Rehab External Planned Provider: [facility] DCP follow-up note: CM RECEIVED INPATIENT REHAB PRESCREENING ORDER, SPOKE TO PT IN ROOM REGARDING REHAB OPTIONS, LOCATIONS AND PROVIDERS. PT AND HIS SPOUSE BOTH WANT TO GO TO [facility] IT IS CLOSER TO PT'S HOME AND HE WILL GET A PRIVATE ROOM. CHOICE SIGNED. IMPORTANT MESSAGE FROM MEDICARE PROVIDED AND EXPLAINED. CM CALLED [facility]AE OF [facility], , PROVIDED REFERRAL FOR INPATIENT REHAB. CM FAXED REFERRAL INFORMATION TO [facility] WITH CURRENT MAR AT [phone]. CM WAITING ADMISSION DETERMINATION FROM [facility]. Mushtaq Gallegos, CASE MANAGEMENT DCP- Discharge Planning Updated by [id number]: Martha Sin on 07/03/19 10:[address] DC PLAN: Return home with independently. ANTICIPATED DC NEEDS: Denied known dc needs in ER. CM met with patient and his to complete initial dc planning assessment. CM educated them on the CM role and verbal consent given by patient to complete assessment. CM verified patient's address, phone number, and emergency contact phone numbers. Patient lives at home with his . He reports he is independent in his care at home. At discharge patient plans to return home with his and feels this is a safe discharge. CM discussed availability of home health, rehab services, and medical equipment. Patient denied known discharge needs at this time. Transportation provider at discharge will be his . CM will continue to follow and will assist as needed with dc plans/needs. Martha Sin RN, [facility] DCPIA - Discharge Planning Initial Assessment Updated by [email or web address]: Martha Sin on 07/03/19 11:21 am * Is the patient Alert and Oriented? Yes * How many steps to enter\exit or inside your home? * PCP Dr. Edwin Miranda * [facility] [address] * Preadmission Environment Home with Family * ADLs Independent * Equipment Cane CPAP Rolling Walker * List name and contact numbers for known caregivers / representatives who currently or will assist patient after discharge: Dwight Khanna - spouse - [phone] * Verbal permission to speak to the caregivers and representatives has been obtained from the patient. Yes * Additional services required to return to the preadmission environment? No * Can the patient safely return to the preadmission environment? Yes * Has this patient been hospitalized within the prior 30 days at any hospital? No Coverage Notice Reviewer: [id number] Gallegos Notice Issued Date-Time: 07/10/2019 14:40 Notice Type: IM Discharge Notice Notice Delivered To: Patient Relationship to Patient: Phone Counselor Name: Delivery Method: HAND - Hand Delivered Annie Days: Prior Verbal Notification: Recipient Understood Notice: Yes Recipient Signature: Yes Med Rec Note Co-signed by Attending: Coverage Notice Comment: Reviewer: HEIDI Gallegos Notice Issued Date-Time: 07/10/2019 14:40 Notice Type: Patient Choice Letter Notice Delivered To: Patient Relationship to Patient: Phone Counselor Name: Delivery Method: HAND - Hand Delivered Annie Days: Prior Verbal Notification: Recipient Understood Notice: Yes Recipient Signature: Yes Med Rec Note Co-signed by Attending: Coverage Notice Comment: [facility] Reviewer: [email or web address] Gallegos Notice Issued Date-Time: 07/11/2019 13:10 Notice Type: Patient Choice Letter Notice Delivered To: Patient Relationship to Patient: Phone Counselor Name: Delivery Method: HAND - Hand Delivered Annie Days: Prior Verbal Notification: Recipient Understood Notice: Yes Recipient Signature: Yes Med Rec Note Co-signed by Attending: Coverage Notice Comment: [facility] Reviewer: [id number] Gallegos Notice Issued Date-Time: 07/11/2019 13:10 Notice Type: IM Discharge Notice Notice Delivered To: Patient Relationship to Patient: Phone Counselor Name: Delivery Method: HAND - Hand Delivered Annie Days: Prior Verbal Notification: Recipient Understood Notice: Yes Recipient Signature: Yes Med Rec Note Co-signed by Attending: Coverage Notice Comment: Reviewer: [id number] Edenilson Holcomb Notice Issued Date-Time: 07/15/2019 11:40 Notice Type: IM Discharge Notice Notice Delivered To: Patient Relationship to Patient: Self Phone Counselor Name: Delivery Method: - Annie Days: Prior Verbal Notification: Recipient Understood Notice: Recipient Signature: Med Rec Note Co-signed by Attending: Coverage Notice Comment: Last DP export: 07/13/19 7:47 a Patient Name: ARIES KHANNA Page [id number] at 1618 All edits/amendments must be made on the electronic document DICTATION DATE: 07/15/191616 PUBLIC SERVICE REPRESENTATIVE: CORNELIO 07/15/191616 RPT#: [id number] DC DATE: STATUS: ADM IN [facility] [address] [place] [address] END OF REPORT
--- NOTE | 2019-07-15 17:37 | MORECARE ---
CASE MANAGEMENT DISCHARGE SUMMARY PATIENT: ARIES KHANNA UNIT: [id number] ADM DATE: 07/03/19 AGE: 74 : 43 SEX: M ROOM/BED: D[facility] AUTHOR: SHABNAM,DOC PHYSICIAN: REFERRING PHYSICIAN: JUVENTINO ARENAS MD DATE OF SERVICE: 07/15/19 Discharge Plan Patient Name: ARIES KHANNA Facility: [facility]:[place] : 1945 Planned Disposition: Home Anticipated Discharge Date: 07/11/19 Discharge Date: 07/15/2019 Expected LOS: 8 Initial Reviewer: [id number] Initial Review Date: 07/03/2019 Generated: 07/15/19 6:37 pm Comments DCP- Discharge Planning Updated by [email or web address]: Lesly Holcomb on 07/15/19 3:[address] Patient Name: ARIES KHANNA Admission Status: Elective Accout number: [id number] Admission Date: 07-03-2019 : 1945 Admission Diagnosis:SEPSIS, UNSPECIFIED ORGANISM Attending: OLIVIA Current LOS: 12 Anticipated DC Date: 07-11-2019 Planned Disposition: Home Primary Insurance: MEDICARE A & B Discharge Planning Comments: CM received notice of discharge. Patient needs new walk test for home 02. CM spoke with nursing to get walk test. Patient did meet for home 02. CM called [facility] answering service and faxed new walk test. [facility] Patient to deliver portable 02 to patient's room and walker today. D/C IMM signed 07/15/2019 @ 1140. CM will continue to follow and assist as needed with discharge planning / needs. Kiln Door Repairer: Lesly Holcomb DCP- Discharge Planning Updated by [email or web address]: Mushtaq Gallegos on 07/13/19 7:[address] Patient Name: ARIES KHANNA Encounter No: [id number] : 1945 Primary Insurance: MEDICARE A & B Anticipated DC Date: 07-11-2019 Planned Disposition: Home DCP follow-up note: CM RECEIVED CALL FROM J[facility]GE OF [facility], , SPOKE TO JORGE WHO INFORMED CM THAT THEY WILL NEED NEW OXYGEN TESTING PRIOR TO DELIVERING OXYGEN FOR PT TO DISCHARGE HOME. CM FAXED CURRENT MEDICATIONS LIST TO [facility], . WITH RECEIPT OF QUALIFYING OXYGEN TESTING, [facility] WILL DELIVER PORTABLE OXYGEN AND WALKER TO HOSPITAL FOR DISCHARGE AND WILL ARRANGE HOME OXYGEN WHEN PT ARRIVES AT HOME AFTER DISCHARGE. PETR Gonzales DCP- Discharge Planning Updated by [id number]: Mushtaq Gallegos on 07/11/19 2:[address] Patient Name: ARIES KHANNA Encounter No: [id number] : 1945 Primary Insurance: MEDICARE A & B Anticipated DC Date: 07-11-2019 Planned Disposition: Home DCP follow-up note: CM RECEIVED CALL FROM [facility], PT DECLINED FOR INPATIENT REHAB TOO HIGH FUNCTIONING. CM MET WITH PT IN ROOM, OFFERED HOME HEALTH. PT DECLINED AND REPORTS IF HE NEEDS HOME HEALTH, WHICH HE THINKS HE DOES NOT, HE WILL CALL THE [facility] TO HAVE IT ARRANGED. PT DOES NEED HOME OXYGEN AND WALKER. PT WANTS TO USE [facility] HE USES THEM ALREADY. CHOICE SIGNED. PT DENIES FURHTER DISCHARGE NEEDS, FAMILY TO TRANSPORT HOME AT DISCHARGE. IMPORTANT MESSAGE FROM MEDICARE PROVIDED AND EXPLAINED. JAMAR CALLED [facility], , SPOKE TO JORGE AND PROVIDED REFERRAL INFORMATION. CM FAXED REFERRAL TO [facility], . JORGE ADVISED THEY WILL DELIVER PORTABLE OXYGEN AND WALKER TO HOSPITAL TODAY AND WILL ARRANGE HOME OXYGEN WHEN PT ARRIVES AT HOME AFTER DISCHARGE. PETR Gonzales DCP- Discharge Planning Updated by [id number]: Mushtaq Gallegos on 07/11/19 7:[address] Patient Name: ARIES KHANNA Encounter No: [id number] : 1945 Primary Insurance: MEDICARE A & B Anticipated DC Date: 07-11-2019 Planned Disposition: Inpatient Rehab External Planned Provider: [facility] DCP follow-up note: JAMAR FAXED REFERRAL UPDATE TO [facility] WITH CURRENT MAR AT [phone]. CM WAITING ADMISSION DETERMINATION FROM [facility]. PETR Gonzales DCP- Discharge Planning Updated by [id number]: Mushtaq Gallegos on 07/10/19 3:[address] Patient Name: ARIES KHANNA Encounter No: [id number] : 1945 Primary Insurance: MEDICARE A & B Anticipated DC Date: 07-11-2019 Planned Disposition: Inpatient Rehab External Planned Provider: [facility] DCP follow-up note: CM RECEIVED INPATIENT REHAB PRESCREENING ORDER, SPOKE TO PT IN ROOM REGARDING REHAB OPTIONS, LOCATIONS AND PROVIDERS. PT AND HIS SPOUSE BOTH WANT TO GO TO [facility] IT IS CLOSER TO PT'S HOME AND HE WILL GET A PRIVATE ROOM. CHOICE SIGNED. IMPORTANT MESSAGE FROM MEDICARE PROVIDED AND EXPLAINED. CM CALLED [facility] OF [facility], , PROVIDED REFERRAL FOR INPATIENT REHAB. CM FAXED REFERRAL INFORMATION TO [facility] WITH CURRENT MAR AT [phone]. CM WAITING ADMISSION DETERMINATION FROM [facility]. Mushtaq Gallegos, CASE MANAGEMENT DCP- Discharge Planning Updated by [id number]: Martha Sin on 07/03/19 10:[address] DC PLAN: Return home with independently. ANTICIPATED DC NEEDS: Denied known dc needs in ER. CM met with patient and his to complete initial dc planning assessment. CM educated them on the CM role and verbal consent given by patient to complete assessment. CM verified patient's address, phone number, and emergency contact phone numbers. Patient lives at home with his . He reports he is independent in his care at home. At discharge patient plans to return home with his and feels this is a safe discharge. CM discussed availability of home health, rehab services, and medical equipment. Patient denied known discharge needs at this time. Transportation provider at discharge will be his . CM will continue to follow and will assist as needed with dc plans/needs. Martha Sin RN, [facility] DCPIA - Discharge Planning Initial Assessment Updated by [email or web address]: Martha Sin on 07/03/19 11:21 am * Is the patient Alert and Oriented? Yes * How many steps to enter\exit or inside your home? * PCP Dr. Edwin Miranda * [facility] [address] * Preadmission Environment Home with Family * ADLs Independent * Equipment Cane CPAP Rolling Walker * List name and contact numbers for known caregivers / representatives who currently or will assist patient after discharge: Dwight Khanna - spouse - [phone] * Verbal permission to speak to the caregivers and representatives has been obtained from the patient. Yes * Additional services required to return to the preadmission environment? No * Can the patient safely return to the preadmission environment? Yes * Has this patient been hospitalized within the prior 30 days at any hospital? No Coverage Notice Reviewer: [id number] Gallegos Notice Issued Date-Time: 07/10/2019 14:40 Notice Type: IM Discharge Notice Notice Delivered To: Patient Relationship to Patient: [employer]stabout Crew Leader Name: Delivery Method: HAND - Hand Delivered Annie Days: Prior Verbal Notification: Recipient Understood Notice: Yes Recipient Signature: Yes Med Rec Note Co-signed by Attending: Coverage Notice Comment: Reviewer: [id number] Gallegos Notice Issued Date-Time: 07/10/2019 14:40 Notice Type: Patient Choice Letter Notice Delivered To: Patient Relationship to Patient: [employer] Crew Leader Name: Delivery Method: HAND - Hand Delivered Annie Days: Prior Verbal Notification: Recipient Understood Notice: Yes Recipient Signature: Yes Med Rec Note Co-signed by Attending: Coverage Notice Comment: [facility] Reviewer: [id number] Gallegos Notice Issued Date-Time: 07/11/2019 13:10 Notice Type: Patient Choice Letter Notice Delivered To: Patient Relationship to Patient: [employer] Crew Leader Name: Delivery Method: HAND - Hand Delivered Annie Days: Prior Verbal Notification: Recipient Understood Notice: Yes Recipient Signature: Yes Med Rec Note Co-signed by Attending: Coverage Notice Comment: [facility] Reviewer: [id number] Gallegos Notice Issued Date-Time: 07/11/2019 13:10 Notice Type: IM Discharge Notice Notice Delivered To: Patient Relationship to Patient: [employer] Crew Leader Name: Delivery Method: HAND - Hand Delivered Annie Days: Prior Verbal Notification: Recipient Understood Notice: Yes Recipient Signature: Yes Med Rec Note Co-signed by Attending: Coverage Notice Comment: Reviewer: [id number] Edenilson Holcomb Notice Issued Date-Time: 07/15/2019 11:40 Notice Type: IM Discharge Notice Notice Delivered To: Patient Relationship to Patient: Self [employer]stabout Crew Leader Name: Delivery Method: - Annie Days: Prior Verbal Notification: Recipient Understood Notice: Recipient Signature: Med Rec Note Co-signed by Attending: Coverage Notice Comment: Last DP export: 07/15/19 3:18 p Patient Name: ARIES KHANNA Page [id number] at 1737 All edits/amendments must be made on the electronic document DICTATION DATE: 07/15/191736 MULTIFOCAL BUTTON INSPECTOR: CORNELIO 07/15/191736 RPT#: [id number] DC DATE:07/15/19 STATUS: DIS IN [facility] [address] [place] [address] END OF REPORT
[2019-07-16 17:07] LABS: HEPARIN INDUCED PLATELET AB 0.229 OD (0.000-0.400)
== END 2019-07-15 16:52 | disposition home or self-care (01) | DRG 248 ==
LOC: D.ER 07:16 → D.CVICU 08:53 → D.M2 08:53 → D.ICU 08:53 → D.M2 07-06 13:14 → D.ICU 07-13 09:44 → D.CVICU 07-13 11:34
PROVIDERS: Family Medicine; Internal Medicine Hematology & Oncology; Internal Medicine Interventional Cardiology; Thoracic Surgery (Cardiothoracic Vascular Surgery); ADMIT Family Medicine; ATTEND Family Medicine
PROC: 06H03DZ Insertion of Intraluminal Device into Inferior Vena Cava, Percutaneous Approach (ICD-10-PCS; 2019-07-04)
PROC: B2111ZZ Fluoroscopy of Multiple Coronary Arteries using Low Osmolar Contrast (ICD-10-PCS; 2019-07-05)
PROC: B2151ZZ Fluoroscopy of Left Heart using Low Osmolar Contrast (ICD-10-PCS; 2019-07-05)
PROC: 4A023N7 Measurement of Cardiac Sampling and Pressure, Left Heart, Percutaneous Approach (ICD-10-PCS; 2019-07-05)
PROC: 02703DZ Dilation of Coronary Artery, One Artery with Intraluminal Device, Percutaneous Approach (ICD-10-PCS; principal; 2019-07-05 11:00)
PROC: 04QL0ZZ Repair Left Femoral Artery, Open Approach (ICD-10-PCS; 2019-07-13)
DX: I21.4 Non-ST elevation (NSTEMI) myocardial infarction (principal); J96.01 Acute respiratory failure with hypoxia; I26.99 Other pulmonary embolism without acute cor pulmonale; I50.21 Acute systolic (congestive) heart failure; N17.9 Acute kidney failure, unspecified; J44.1 Chronic obstructive pulmonary disease with (acute) exacerbation; I82.402 Acute embolism and thrombosis of unspecified deep veins of left lower extremity; G47.33 Obstructive sleep apnea (adult) (pediatric); K21.9 Gastro-esophageal reflux disease without esophagitis; D69.6 Thrombocytopenia, unspecified; R73.9 Hyperglycemia, unspecified; E78.5 Hyperlipidemia, unspecified; K72.90 Hepatic failure, unspecified without coma; I11.0 Hypertensive heart disease with heart failure

== ENCOUNTER 2020-04-08 10:27 | Inpatient (IN) | payer MEDICARE, OTHER ==
[~2020-04-08] VITALS: Ht 182.9 cm; Wt 108.9 kg
[~2020-04-08 10:27] MED LIST: COZAAR50 MG PO; ELIQUIS5 MG PO; FENOFIBRATE134 MG PO; FOLIC ACID1 MG PO; GABAPENTIN100 MG PO; GARLIC PO; IPRATROPIUM BRO30 M1 NASAL; LOPRESSOR25 MG PO; LOSARTAN-HCTZ1 EAC1 PO; MULTI-DAY VITAM1 TAB PO; OMEGA-3100 MG PO; OMEPRAZOLE20 M1 PO; PLAVIX75 MG PO; PROTONIX40 MG PO; VOLTAREN100 GM TOPICAL
[2020-04-08 11:41] LABS: BASOPHILS 0 % (0-2); EOSINOPHILS 1.4 % (0-7); HEMOGLOBIN 13.9 g/dL (13.5-17.5); IMMATURE GRANULOCYTES 0.8 % (0-5); LYMPHOCYTES 7.6 % (15-50); MCH 32.4 pg (26.0-34.0); MCHC 33.9 g/dL (31.0-37.0); MCV 95.6 fL (80.0-100.0); MEAN PLATELET VOLUME 9.9 fL (7.4-10.4); MONOCYTES 5.4 % (2-11); NEUTROPHILS 84.8 % (40-80); PLATELET COUNT 182 10x3/uL (130-400); RBC 4.29 10x6/uL (4.20-6.10); RDW 12.8 % (11.5-14.5); WBC 6.5 10x3/uL (4.8-10.8)
[2020-04-08 12:07] LABS: ANION GAP 14.4 mmol/L (8-16); CALCIUM 8.4 mg/dL (8.5-10.1); CARBON DIOXIDE 22.8 mmol/L (21.0-32.0); CREATININE - SERUM 1.4 mg/dL (0.6-1.3); POTASSIUM - SERUM 4.2 mmol/L (3.5-5.1)
[2020-04-08 12:18] LABS: ALBUMIN 2.3 g/dL (3.4-5.0); BILIRUBIN - TOTAL 0.96 mg/dL (0.2-1.3); C-REACTIVE PROTEIN 3.4 mg/dL (0.0-0.9); PROTEIN - SERUM 6.6 g/dL (6.4-8.2); TROPONIN-I 0.022 ng/mL (0.000-0.060)
--- NOTE | 2020-04-08 13:39 | NUR ---
PT CONTINUES TO REST IN POSITION OF COMFORT AND SAFETY AT THIS TIME. PT IS CURRENTLY ON ROOM AIR WITH AN OXYGEN SATURATION OF 94%. PT HAS REMOVED HIS O2 CANNULA FROM HIS NOSE STATING IT WAS BOTHERING HIM. PT'S IV ABX STARTED AFTER BLOOD CLUTURES OBTAINED BY [employer] OFFICER. PT DENIES ANY CURRENT NEEDS OR CONCERNS AT THIS TIME.
[2020-04-08 14:24] VITALS: BP 128/75
[2020-04-08 19:47] LABS: BILIRUBIN NEGATIVE (NEGATIVE); KETONE NEGATIVE (NEGATIVE); NITRITE NEGATIVE (NEGATIVE); UROBILINOGEN NORMAL mg/dL (< 2)
--- NOTE | 2020-04-08 23:00 | NUR ---
RECIEVED PT LAYING IN BED ALERT AND ORIENTED.PT WEARS GLASSES.PT STATES THAT HE HAS CHRONIC BACK PAIN.DENIES PAIN AT THIS TIME.RESP ARE EVEN ET UNLABORED.HAS 02 IN USE.PT STATES OCC COUGH.HEARTRATE IS REGULAR.IV TO LEFT AC WITHOUT S/S OF INFILTRATION.PT STATES GOOD APPETITE.SAFETY MEASURES ARE IN PLACE.WILL CONTINUE TO MONITOR.
[2020-04-09] VITALS: BP 119/70
--- NOTE | 2020-04-09 00:30 | NUR ---
PT LAYING IN BED RESTING WITH EYES CLOSED. EASILY AROUSED. PT HAS PULLED IV OUT OF ARM.IV RESTARTED TO LEFT HAD USING A 20 GAUGE X 1 STICK.IV FLUIDS STARTED.PT PLACED ON DOCTOR OF OPTOMETRY.NO DISTRESS NOTED.SAFETY MEASURES ARE IN PLACE.
[2020-04-09 04:00] VITALS: BP 137/77
--- NOTE | 2020-04-09 04:56 | NUR ---
PT LAYING IN BED RESTING WITH EYES CLOSED. EASILY AROUSED. ALLERGY ARM BAND AND FALL PRECAUTION BRACELET PLACED ON PTS WRIST.RESP ARE UNLABORED.IV WITHOUT S/S OF INFILTRATION.NO DISTRESS NOTED.
--- NOTE | 2020-04-09 08:46 | NUR ---
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 CALLED AND SPOKE WITH RACQUEL DRUMMOND ABOUT THIS AND SHE STATES TO HOLD LOVENOX FOR NOW AND GIVE ELIQUIS AND SHE WILL TAKE A LOOK AT PT'S CHART IN A LITTLE BIT. I VERBALIZED UNDERSTANDING.
[2020-04-09 09:08] VITALS: BP 125/88
--- NOTE | 2020-04-09 10:27 | NUR ---
I have reviewed this patient and I concur with the Shift Assessment completed by the Licensed Practical Nurse today this shift.
[2020-04-09 14:06] VITALS: Ht 182.9 cm; Wt 108.9 kg
[2020-04-09 15:56] VITALS: BP 131/76
--- NOTE | 2020-04-09 19:45 | NUR ---
REPORT RECIEVED AND ROUNDING COMPLETE. PATIENT LAYING IN BED IN LOW FOWLERS POSITION ASKING ABOUT HIS ELIQUIS, EXPLAINED THAT HE GETS IS TWICE A DAY AND IT WAS NO TIME FOR IT NOW BUT I WILL BRING IT TO HIM PER MAR. WEARING NASAL CANNULA WITH O2 AT 3L. LEFT HAND PIV PATENT WITH FLUIDS RUNNING. NO COMPLAINTS AT THIS TIME. NO DISTRESS NOTED. CALL LIGHT WITHIN REACH AND BED IN LOWEST LOCKED POSITION.
[2020-04-09 20:00] VITALS: BP 130/76
[2020-04-09 21:15] VITALS: BP 130/76
[2020-04-10] VITALS: BP 130/78
[2020-04-10 04:00] VITALS: BP 132/80
[2020-04-10 08:40] VITALS: BP 138/77
[2020-04-10 10:35] LABS: BASOPHILS 0 % (0-2); EOSINOPHILS 1.7 % (0-7); HEMATOCRIT 42.3 % (42.0-54.0); HEMOGLOBIN 14.6 g/dL (13.5-17.5); LYMPHOCYTES 11.7 % (15-50); MCHC 34.5 g/dL (31.0-37.0); MCV 95.7 fL (80.0-100.0); MEAN PLATELET VOLUME 9.8 fL (7.4-10.4); MONOCYTES 6.6 % (2-11); PLATELET COUNT 185 10x3/uL (130-400); RBC 4.42 10x6/uL (4.20-6.10); RDW 12.9 % (11.5-14.5); WBC 5.8 10x3/uL (4.8-10.8)
--- NOTE | 2020-04-10 10:55 | NUR ---
PT ASSISTED TO BATHROOM FOR BM. VERY WEAK. USING URINAL TO VOID. IV RESITED DUE TO PRIOR ONE BEING PULLED OUT UNDER DRESSING. LABS SENT WITH IV START.
[2020-04-10 10:56] LABS: ALBUMIN 2.5 g/dL (3.4-5.0); ANION GAP 14.3 mmol/L (8-16); BILIRUBIN - TOTAL 0.73 mg/dL (0.2-1.3); CALCIUM 8.4 mg/dL (8.5-10.1); CARBON DIOXIDE 22.7 mmol/L (21.0-32.0); CREATININE - SERUM 1.5 mg/dL (0.6-1.3); PROTEIN - SERUM 6.8 g/dL (6.4-8.2)
--- NOTE | 2020-04-10 15:19 | NUR ---
PT GIVEN INCENTIVE SPIROMETRY. STATES USED BEFORE AND IS FAMILIAR. EXHIBITED GOOD TECHNIQUE WITH 1500 VOLUME. LEFT AT BEDSIDE WITH INSTRUCTIONS TO USE EVERY HOUR.
[2020-04-10 16:21] VITALS: BP 138/78
--- NOTE | 2020-04-10 17:14 | NUR ---
OT NOTE: PT COMPLETED SIT TO STAND WITH MIN A. PT COMPLETED SIT TO SUPINE WITH MIN A. [id number] [place] [place] C[place]
--- NOTE | 2020-04-10 19:23 | NUR ---
REPORT RECIEVED AND ROUNDING COMPLETE. PATIENT LAYING IN BED IN LOW FOWLERS POSITION. PATIENT STATES HE HAS HAD A GOOD DAY. WEARING NASAL CANNULA WITH O2 AT 3L. RIGHT WRIST PIV THAT IS PATENT AND RUNNING FLUIDS AT THIS TIME. PATIENT IS [place]HE [place]. NO NEEDS VOICED, NO DISTRESS NOTED. CALL LIGHT WITHIN AND BED IN LOWEST LOCKED POSITION.
[2020-04-10 20:00] VITALS: BP 140/77
[2020-04-11] VITALS: BP 136/79
[2020-04-11 04:00] VITALS: BP 139/80
--- NOTE | 2020-04-11 07:38 | NUR ---
PT RECEIVED AWAKE AND ALERT. FFP INFUSING. URINAL EMPTIED. PT STATES DID NOT SLEEP MUCH. NO NEEDS AT PRESENT.
[2020-04-11 08:10] VITALS: BP 133/75
--- NOTE | 2020-04-11 10:26 | NUR ---
PT TOOK SELF TO BATHROOM WITH WALKER, IV TUBING HUNG UP ON BEDRAIL AND PULLED OUT. BLEEDING IN BATHROOM. DRESSING APPLIED, BLOOD CLEANED UP, PT CHANGED AND ASSISTED BACK TO BED.
[2020-04-11 12:38] VITALS: BP 139/76
--- NOTE | 2020-04-11 13:31 | NUR ---
Nutrition Follow-up: Pt in droplet isolation; covid-19+. Nursing reports pt eating well. Diet: Cardiac Wt: 240# (04/09) Labs reviewed Meds noted: Pepcid, Florajen, fish oil, vit D, vit C, zinc sulfate, NS @ 30, electrolyte protocol -RD following.
[2020-04-11 15:16] LABS: BASOPHILS 0.2 % (0-2); EOSINOPHILS 0.2 % (0-7); HEMATOCRIT 37.5 % (42.0-54.0); HEMOGLOBIN 12.9 g/dL (13.5-17.5); IMMATURE GRANULOCYTES 1.1 % (0-5); LYMPHOCYTES 7.5 % (15-50); MCH 32.7 pg (26.0-34.0); MCHC 34.4 g/dL (31.0-37.0); MCV 94.9 fL (80.0-100.0); MEAN PLATELET VOLUME 9.7 fL (7.4-10.4); MONOCYTES 4.9 % (2-11); NEUTROPHILS 86.1 % (40-80); PLATELET COUNT 169 10x3/uL (130-400); RBC 3.95 10x6/uL (4.20-6.10); RDW 12.7 % (11.5-14.5); WBC 5.4 10x3/uL (4.8-10.8)
[2020-04-11 15:30] LABS: ALBUMIN 2.4 g/dL (3.4-5.0); ANION GAP 17.6 mmol/L (8-16); BILIRUBIN - TOTAL 0.58 mg/dL (0.2-1.3); CALCIUM 8.2 mg/dL (8.5-10.1); CARBON DIOXIDE 22.6 mmol/L (21.0-32.0); CREATININE - SERUM 1.5 mg/dL (0.6-1.3); POTASSIUM - SERUM 4.2 mmol/L (3.5-5.1); PROTEIN - SERUM 6.2 g/dL (6.4-8.2)
[2020-04-11 18:12] VITALS: BP 136/70
[2020-04-11 20:00] VITALS: BP 138/78
[2020-04-12 04:00] VITALS: BP 141/84
[2020-04-12 06:03] LABS: BASOPHILS 0 % (0-2); EOSINOPHILS 1.6 % (0-7); HEMATOCRIT 36.8 % (42.0-54.0); HEMOGLOBIN 12.3 g/dL (13.5-17.5); IMMATURE GRANULOCYTES 0.7 % (0-5); LYMPHOCYTES 17.2 % (15-50); MCH 32.1 pg (26.0-34.0); MCHC 33.4 g/dL (31.0-37.0); MCV 96.1 fL (80.0-100.0); MEAN PLATELET VOLUME 9.6 fL (7.4-10.4); MONOCYTES 6.4 % (2-11); NEUTROPHILS 74.1 % (40-80); PLATELET COUNT 156 10x3/uL (130-400); RBC 3.83 10x6/uL (4.20-6.10); RDW 12.9 % (11.5-14.5); WBC 4.4 10x3/uL (4.8-10.8)
[2020-04-12 06:35] LABS: ALBUMIN 2.3 g/dL (3.4-5.0); ANION GAP 11.1 mmol/L (8-16); BILIRUBIN - TOTAL 0.46 mg/dL (0.2-1.3); CALCIUM 8.1 mg/dL (8.5-10.1); CARBON DIOXIDE 25.8 mmol/L (21.0-32.0); CREATININE - SERUM 1.3 mg/dL (0.6-1.3); MAGNESIUM - SERUM 1.8 mg/dL (1.8-2.4); PHOSPHOROUS 3.6 mg/dL (2.5-4.9); POTASSIUM - SERUM 3.9 mmol/L (3.5-5.1); PROTEIN - SERUM 5.8 g/dL (6.4-8.2)
[2020-04-12 12:16] VITALS: BP 146/85
--- NOTE | 2020-04-12 12:52 | NUR ---
OT NOTE: PT DOING MUCH BETTER TODAY. HOWEVER, UPON INITIALLY STANDING UP, HE WAS VERY IMPULISVE..DID NOT OBSERVE THE CALL LIGHT CORD WRAPPED AROUND HIM AND DID NOT HAVE ON O2..BEGAN WALKING AND WAS VERY UNSTEADY WITH LOB AT SIDE OF BED. HAD PT APPLY 02 AND INSTRUCTED TO TAKE A FEW GOOD DEEP BREATHS. PT WAS ABLE TO PERFORM UE/LE EXS X 3 SETS WITHOUT REST BREAK.. THEN HAD PT AMB AGAIN AROUND ROOM, TO BATHROOM, AND BACK AROUND ROOM WITH USE OF WALKER. EDUCATED ON SLOWING DOWN AND SAFETY AWARENESS TO PREVENT FALLS. PT WITH GOOD UNDERSTANDING. IGOR REN, OTR/L [phone]
--- NOTE | 2020-04-12 18:18 | NUR ---
OT NOTE: (DOS 04/11/2020) PT COMPLETED SUPINE TO SIT WITH SBA. PT COMPLETED BUE AROM EXS TOLERATED. [phone] THANK YOU,LUCÍA CARLSON
--- NOTE | 2020-04-12 19:41 | NUR ---
OT NOTE; PT COMPLETED SIT TO STAND WITH CGA. PT COMPLETED ADL MOB WITH RW REQUIRED SBA/CGA. [phone] THANK YOU,LUCÍA CARLSON
[2020-04-12 21:00] VITALS: BP 136/78
[2020-04-13 06:28] LABS: BASOPHILS 0 % (0-2); EOSINOPHILS 0.9 % (0-7); HEMATOCRIT 37.2 % (42.0-54.0); HEMOGLOBIN 12.5 g/dL (13.5-17.5); IMMATURE GRANULOCYTES 0.7 % (0-5); LYMPHOCYTES 15.4 % (15-50); MCH 32.2 pg (26.0-34.0); MCHC 33.6 g/dL (31.0-37.0); MCV 95.9 fL (80.0-100.0); MEAN PLATELET VOLUME 9.5 fL (7.4-10.4); MONOCYTES 8.1 % (2-11); NEUTROPHILS 74.9 % (40-80); PLATELET COUNT 146 10x3/uL (130-400); RBC 3.88 10x6/uL (4.20-6.10); WBC 5.4 10x3/uL (4.8-10.8)
[2020-04-13 06:55] LABS: ALBUMIN 2.3 g/dL (3.4-5.0); ANION GAP 12.6 mmol/L (8-16); BILIRUBIN - TOTAL 0.52 mg/dL (0.2-1.3); CALCIUM 8.4 mg/dL (8.5-10.1); CARBON DIOXIDE 25.5 mmol/L (21.0-32.0); CREATININE - SERUM 1.3 mg/dL (0.6-1.3); MAGNESIUM - SERUM 1.8 mg/dL (1.8-2.4); PHOSPHOROUS 3.3 mg/dL (2.5-4.9); POTASSIUM - SERUM 4.1 mmol/L (3.5-5.1); PROTEIN - SERUM 5.8 g/dL (6.4-8.2)
[2020-04-13 08:00] VITALS: BP 136/78
[2020-04-13 11:55] VITALS: BP 119/78
[2020-04-13 16:04] VITALS: BP 134/78
--- NOTE | 2020-04-13 17:46 | NUR ---
I have reviewed this patient and I concur with the Shift Assessment completed by the Licensed Practical Nurse today this shift.
[2020-04-13 20:37] VITALS: BP 141/85
[2020-04-14 04:23] VITALS: BP 144/80
--- NOTE | 2020-04-14 05:43 | NUR ---
UNABLE TO DRAW AM LAB. HADOOP ENGINEER NOTIFIED
--- NOTE | 2020-04-14 07:20 | NUR ---
RECIEVE REPORT. ALERT AND ORIENTED X4. SITTING UP IN BED. DENIES ANY NEEDS AT THIS TIME. CONTINUE PLAN OF CARE AND SAFETY PRECAUTIONS.
[2020-04-14 07:24] LABS: BASOPHILS 0.2 % (0-2); EOSINOPHILS 0.8 % (0-7); HEMATOCRIT 40.9 % (42.0-54.0); HEMOGLOBIN 13.8 g/dL (13.5-17.5); IMMATURE GRANULOCYTES 0.8 % (0-5); LYMPHOCYTES 21.3 % (15-50); MCH 32.9 pg (26.0-34.0); MCHC 33.7 g/dL (31.0-37.0); MCV 97.6 fL (80.0-100.0); MEAN PLATELET VOLUME 9.3 fL (7.4-10.4); MONOCYTES 7.8 % (2-11); NEUTROPHILS 69.1 % (40-80); PLATELET COUNT 138 10x3/uL (130-400); RBC 4.19 10x6/uL (4.20-6.10); RDW 13.5 % (11.5-14.5); WBC 6.5 10x3/uL (4.8-10.8)
[2020-04-14 08:01] VITALS: BP 142/84
[2020-04-14 08:02] LABS: ALBUMIN 2.8 g/dL (3.4-5.0); ANION GAP 15.2 mmol/L (8-16); BILIRUBIN - TOTAL 0.68 mg/dL (0.2-1.3); CALCIUM 8.6 mg/dL (8.5-10.1); CREATININE - SERUM 1.4 mg/dL (0.6-1.3); MAGNESIUM - SERUM 1.8 mg/dL (1.8-2.4); PHOSPHOROUS 3.7 mg/dL (2.5-4.9); POTASSIUM - SERUM 4.2 mmol/L (3.5-5.1); PROTEIN - SERUM 6.5 g/dL (6.4-8.2)
[2020-04-14] MEDS ORDERED: MUCINEX600 MG PO (09:07)
[2020-04-14] MEDS ORDERED: SYMBICORT 16010.2 GM INH (09:07)
[2020-04-14] MEDS ORDERED: SINGULAIR10 MG PO (09:07)
[2020-04-14] MEDS ORDERED: DECADRON4 MG PO (09:08)
[2020-04-14] MEDS ORDERED: VITAMIN C PO (09:08)
[2020-04-14] MEDS ORDERED: Vitamin D PO (09:08)
--- NOTE | 2020-04-14 10:37 | MORECARE ---
CASE MANAGEMENT DISCHARGE SUMMARY PATIENT: ARIES KHANNA UNIT: [id number] ADM DATE: 04/08/20 AGE: 75 : 43 SEX: M ROOM/BED: D.2132 AUTHOR: ALVARADO HAQUE PHYSICIAN: REFERRING PHYSICIAN: HARRY ROMAN MD DATE OF SERVICE: 04/14/20 Discharge Plan Patient Name: ARIES KHANNA [facility] [facility] 1945 Planned Disposition: Home with Home Health Anticipated Discharge Date: 04/14/20 Discharge Date: Expected LOS: 6 Initial Reviewer: [email or web address] Initial Review Date: 04/08/2020 Generated: 04/14/20 11:36 am DCPIA - Discharge Planning Initial Assessment Updated by [email or web address]: Carlos Laguna on 04/14/20 10:37 am * Is the patient Alert and Oriented? Yes * How many steps to enter\exit or inside your home? * PCP Dr Villeda * Pharmacy [facility] [address] * Preadmission Environment Home with Family * ADLs Independent * Equipment Cane Walker * Other Equipment none * List name and contact numbers for known caregivers / representatives who currently or will assist patient after discharge: Dwight Khanna, Spouse, * Verbal permission to speak to the caregivers and representatives has been obtained from the patient. Yes * Community resources currently utilized None * Please name any agencies selected above. n/a * Additional services required to return to the preadmission environment? Yes * Can the patient safely return to the preadmission environment? Yes * Has this patient been hospitalized within the prior 30 days at any hospital? No External Providers External Provider: [facility] Next Contact Date: Service Request Date: Service Type: Resolution: Reviewer: Comments: Patient Name: ARIES KHANNA Page [phone] at 1037 All edits/amendments must be made on the electronic document DICTATION DATE: 04/14/20 1036 BOAT OPERATOR: CORNELIO 04/14/20 1036 RPT#: [id number] DC DATE: STATUS: ADM IN [facility] [address] [place] [address] END OF REPORT
--- NOTE | 2020-04-14 10:43 | MORECARE ---
CASE MANAGEMENT DISCHARGE SUMMARY PATIENT: ARIES KHANNA UNIT: [id number] ADM DATE: 04/08/20 AGE: 75 : 43 SEX: M ROOM/BED: D.2132 AUTHOR: SHABNAMDOC PHYSICIAN: REFERRING PHYSICIAN: HARRY ROMAN MD DATE OF SERVICE: 04/14/20 Discharge Plan Patient Name: ARIES KHANNA [facility]:[place] : 1945 Planned Disposition: Home with Home Health Anticipated Discharge Date: 04/14/20 Discharge Date: Expected LOS: 6 Initial Reviewer: [email or web address] Initial Review Date: 04/08/2020 Generated: 04/14/20 11:43 am Comments DCP- Discharge Planning Updated by [email or web address]: Carlos Laguna on 04/14/20 9:[address] Patient Name: ARIES KHANNA Admission Status: ER Accout number: [id number] Admission Date: 04-08-2020 : 1945 Admission Diagnosis:PNEUMONIA, UNSPECIFIED ORGANISM Attending: HARRY ROMAN Current LOS: 6 Anticipated DC Date: 04-14-2020 Planned Disposition: Home with Home Health Primary Insurance: MEDICARE A & B Discharge Planning Comments: CM met with patient via telephone for DC planning per current COVID 19 directives. Patient is in agreement with DC Plan. Patient lives at home with his , Dwight Khanna([phone]). Patient has 3 steps to enter his home and feels that it is safe. PCP: Dr. Villeda. Pharmacy: [facility] on [address] DME: Walker and Cane. Emergency contact: his spouse, Dwight Khanna. CM discussed HHS, OP Therapy, SNF, Rehab. It is noted that the patient is currently on 3L of O2 however, walk test results indicate no need for home Oxygen. Walk test results are placed on the chart. Resting Room Air 96%. Recovery Sat on 3L = 97%. DETONATOR MAKER placed patient on room air and he is tolerating. Patient states he would like HHS with Care IV. JEFE signed for same. CM notified Raya, with Care IV, . Patient voices no other needs at this time. DC IMM delivered, explained, signed by the patient, and placed in chart. Signed form also left with the patient. CM will follow and assist PRN. Absence Management Consultant: Carlos Laguna DCPIA - Discharge Planning Initial Assessment Updated by ROCHELLE: Carlos Laguna on 04/14/20 10:37 am * Is the patient Alert and Oriented? Yes * How many steps to enter\exit or inside your home? * PCP Dr Villeda * Pharmacy [facility] on [address] * Preadmission Environment Home with Family * ADLs Independent * Equipment Cane Walker * Other Equipment none * List name and contact numbers for known caregivers / representatives who currently or will assist patient after discharge: Dwight Khanna, Spouse, * Verbal permission to speak to the caregivers and representatives has been obtained from the patient. Yes * Community resources currently utilized None * Please name any agencies selected above. n/a * Additional services required to return to the preadmission environment? Yes * Can the patient safely return to the preadmission environment? Yes * Has this patient been hospitalized within the prior 30 days at any hospital? No Coverage Notice Reviewer: ROCHELLE Laguna Notice Issued Date-Time: 04/14/2020 9:55 Notice Type: IM Discharge Notice Notice Delivered To: Patient Relationship to Patient: Self Steam Fitter Supervisor Name: Delivery Method: HAND - Hand Delivered Annie Days: Prior Verbal Notification: Recipient Understood Notice: Yes Recipient Signature: Yes Med Rec Note Co-signed by Attending: Coverage Notice Comment: DC IMM delivered, explained, signed by the patient, and placed in chart. Signed form also left with the patient. Reviewer: [email or web address] Laguna Notice Issued Date-Time: 04/14/2020 9:55 Notice Type: Patient Choice Letter Notice Delivered To: Patient Relationship to Patient: Self Steam Fitter Supervisor Name: Delivery Method: HAND - Hand Delivered Annie Days: Prior Verbal Notification: Recipient Understood Notice: Yes Recipient Signature: Yes Med Rec Note Co-signed by Attending: Coverage Notice Comment: CARE IV HHS Last DP export: 04/14/20 9:37 Patient Name: ARIES KHANNA Page [id number] at 1043 All edits/amendments must be made on the electronic document DICTATION DATE: 04/14/20 1043 RHEUMATOLOGIST: DM 04/14/20 1043 RPT#: [id number] DC DATE: STATUS: ADM IN [facility] [address] [place] [address] END OF REPORT
--- NOTE | 2020-04-14 17:23 | NUR ---
ALERT AND ORIENTED X4. SITTING UP IN BED. SPOUSE ARRIVES. DC RT HAND IV TIP INTACT. DISCHARGE INSTRUCTIONS GIVEN VERBALLY AND WRITTEN. DISCHARGE PAPERS NOT SIGNED DUE TO COVID. ESCORT TO RIDE VIA WHEELCHAIR. REMAINS FREE FROM INJURY.
--- NOTE | 2020-04-15 09:27 | MORECARE ---
CASE MANAGEMENT DISCHARGE SUMMARY PATIENT: ARIES KHANNA UNIT: [id number] ADM DATE: 04/08/20 AGE: 75 : 43 SEX: M ROOM/BED: D.2132 AUTHOR: ALVARADO HAQUE PHYSICIAN: REFERRING PHYSICIAN: HARRY ROMAN MD DATE OF SERVICE: 04/15/20 Discharge Plan Patient Name: ARIES KHANNA Facility: [facility]:[place] : 1945 Planned Disposition: Home with Home Health Anticipated Discharge Date: 04/14/20 Discharge Date: 04/14/2020 Expected LOS: 6 Initial Reviewer: [email or web address] Initial Review Date: 04/08/2020 Generated: 04/15/20 10:27 am Comments DCP- Discharge Planning Updated by [email or web address]: Carlos Laguna on 04/14/20 9:[address] Patient Name: ARIES KHANNA Admission Status: ER Accout number: [id number] Admission Date: 04-08-2020 : 1945 Admission Diagnosis:PNEUMONIA, UNSPECIFIED ORGANISM Attending: HARRY ROMAN Current LOS: 6 Anticipated DC Date: 04-14-2020 Planned Disposition: Home with Home Health Primary Insurance: MEDICARE A & B Discharge Planning Comments: CM met with patient via telephone for DC planning per current COVID 19 directives. Patient is in agreement with DC Plan. Patient lives at home with his , Dwight Khanna([phone]). Patient has 3 steps to enter his home and feels that it is safe. PCP: Dr. Villeda. Pharmacy: [facility] on [address] DME: Walker and C[employer]. Emergency contact: his spouse, Dwight Khanna. CM discussed HHS, OP Therapy, SNF, Rehab. It is noted that the patient is currently on 3L of O2 however, walk test results indicate no need for home Oxygen. Walk test results are placed on the chart. Resting Room Air 96%. Recovery Sat on 3L = 97%. SHIP PILOT placed patient on room air and he is tolerating. Patient states he would like HHS with Care IV. JEFE signed for same. CM notified Raya, with Care IV, . Patient voices no other needs at this time. DC IMM delivered, explained, signed by the patient, and placed in chart. Signed form also left with the patient. CM will follow and assist PRN. Vice President Sales: Carlos Laguna DCPIA - Discharge Planning Initial Assessment Updated by ROCHELLE: Carlos Laguna on 04/14/20 10:37 am * Is the patient Alert and Oriented? Yes * How many steps to enter\exit or inside your home? * PCP Dr Villeda * Pharmacy [facility] [address] * Preadmission Environment Home with Family * ADLs Independent * Equipment Cane Walker * Other Equipment none * List name and contact numbers for known caregivers / representatives who currently or will assist patient after discharge: Dwight Khanna, Spouse, * Verbal permission to speak to the caregivers and representatives has been obtained from the patient. Yes * Community resources currently utilized None * Please name any agencies selected above. n/a * Additional services required to return to the preadmission environment? Yes * Can the patient safely return to the preadmission environment? Yes * Has this patient been hospitalized within the prior 30 days at any hospital? No Coverage Notice Reviewer: ROCHELLE Laguna Notice Issued Date-Time: 04/14/2020 9:55 Notice Type: IM Discharge Notice Notice Delivered To: Patient Relationship to Patient: Self Php Mysql Web Developer Name: Delivery Method: HAND - Hand Delivered Annie Days: Prior Verbal Notification: Recipient Understood Notice: Yes Recipient Signature: Yes Med Rec Note Co-signed by Attending: Coverage Notice Comment: DC IMM delivered, explained, signed by the patient, and placed in chart. Signed form also left with the patient. Reviewer: [email or web address] Edenilson Laguna Notice Issued Date-Time: 04/14/2020 9:55 Notice Type: Patient Choice Letter Notice Delivered To: Patient Relationship to Patient: Self Php Mysql Web Developer Name: Delivery Method: HAND - Hand Delivered Annie Days: Prior Verbal Notification: Recipient Understood Notice: Yes Recipient Signature: Yes Med Rec Note Co-signed by Attending: Coverage Notice Comment: CARE IV HHS Last DP export: 04/14/20 9:43 Patient Name: ARIES KHANNA Page [id number] at 0927 All edits/amendments must be made on the electronic document DICTATION DATE: 04/15/20926 CUSTODIAL MAINTENANCE WORKER: DM 04/15/20926 RPT#: [id number] DC DATE:04/14/20 STATUS: DIS IN [facility] [address] [place] [address] END OF REPORT
== END 2020-04-14 17:26 | disposition home health service (06) | DRG 177 ==
LOC: D.ER 10:27 → D.M2 14:29 → D.EDHOLD 14:29 → D.M2 20:05
PROVIDERS: Emergency Medicine; Family Medicine; ADMIT Family Medicine; ATTEND Family Medicine
PROC: XW033E5 Introduction of Remdesivir Anti-infective into Peripheral Vein, Percutaneous Approach, New Technology Group 5 (ICD-10-PCS; principal; 2020-04-09)
DX: U07.1 COVID-19 (principal); J12.89 Other viral pneumonia; J96.21 Acute and chronic respiratory failure with hypoxia; I50.23 Acute on chronic systolic (congestive) heart failure; J44.0 Chronic obstructive pulmonary disease with (acute) lower respiratory infection; E87.1 Hypo-osmolality and hyponatremia; I13.0 Hypertensive heart and chronic kidney disease with heart failure and stage 1 through stage 4 chronic kidney disease, or unspecified chronic kidney disease; N17.9 Acute kidney failure, unspecified; N18.9 Chronic kidney disease, unspecified; I25.10 Atherosclerotic heart disease of native coronary artery without angina pectoris; D63.1 Anemia in chronic kidney disease; Z79.01 Long term (current) use of anticoagulants; Z99.81 Dependence on supplemental oxygen; Z86.718 Personal history of other venous thrombosis and embolism; Z86.711 Personal history of pulmonary embolism; Z87.891 Personal history of nicotine dependence

== ENCOUNTER 2020-10-03 11:41 | Day surgery (SDC) | payer MEDICARE, OTHER ==
--- NOTE | 2020-10-02 16:46 | NUR ---
CONFIRMED APPT FOR 10/03/20 NPO AFTER MIDNIGHT - ONLY SIPS OF WATER WITH MORNING MEDS PT HASN'T TAKEN ELIQUIS SINCE 10/01/20 PT WILL HAVE RN FAMILY PRACTICE FOR POST PROCEDURE
[~2020-10-03] VITALS: Ht 182.9 cm; Wt 114.1 kg
--- NOTE | ~2020-10-03 | HEMODYNAMI ---
PATIENT:ARIES KHANNA MEDICAL RECORD: [id number] : 41 [id number] ADMISSION DATE: 10/03/20 Generatedon:116:20 Patient name: ARIES KHANNA Patient #: [id number] SSN: [id number] : 1945 Date of study: 10/03/2020 Page: Of Hemodynamic Procedure Report Patient Data Patient Demographics Procedure consent was obtained First Name: ARIES Gender: Male Last Name: CLEMENCIA : 1945 Middle Initial: J Age: 75 year(s) Patient #: [id number] Race: SSN: [id number] Additional ID: [id number] Contact details Address: [address] [place] [address] [address] State: [place] City: [place] Zip code: [address] Past Medical History Allergies Allergen Reaction Date Comments Reported Statins 07/04/2019 MICHELLE inhibitors 10/03/2020 Admission Admission Data Admission Date: 10/03/2020 Admission Time: 11:41 Procedure Procedure Types Cath Procedure Peripheral Cath Diagnostic Procedure Venography IVC/SVC IVC Filter Retreival Procedure Description Procedure Date Procedure Date: 10/03/2020 Procedure Start Time: 15:57 Procedure End Time: 16:20 Procedure Staff Name Function Frank Young MD Performing Physician ROCHELLE LAO RT Monitor Axel Yoder RT Scrub Debbie Yan RN Nurse Siri Banegas RN Nurse Procedure Data Cath Procedure Fluoroscopy Diagnostic fluoroscopy Total fluoroscopy Time: 4.7 time: 4.7 min min Contrast Material Contrast Material Type Amount (ml) Isovue 300 20 Procedure Medications Medication Administration Route Dosage Heparin Flush Bag added to field 2 bags (1000units/500ml NS) Lidocaine 1% added to field 20 Versed I.V. 1 mg Fentanyl I.V. 50 mcg Versed I.V. 1 mg Fentanyl I.V. 50 mcg Hemodynamics Rest Heart Rate: 79 (bpm) Snapshots Pre Cath Intra NCS Post Cath Vital Signs Time Heart Resp SPO2 etCO2 NIBP (mmHg) Rhythm Pain Sedation Rate (ipm) (%) (mmHg) Status Level (bpm) 15:35:39 80 11 100 38.6 159/92(124) NSR 0 (11) 10(A) , No pain 15:40:00 76 22 100 37.1 160/94(128) NSR 0 (11) 10(A) , No pain 15:44:18 77 11 100 0 153/97(128) NSR 0 (11) 10(A) , No pain 15:48:38 79 11 100 0 153/86(132) NSR 0 (11) 10(A) , No pain 15:52:54 85 19 100 32.7 156/90(129) NSR 0 (11) 8(A) , No pain 15:57:12 81 11 99 0 155/89(119) NSR 0 (11) 8(A) , No pain 16:01:32 88 10 99 2.2 154/82(114) NSR 0 (11) 8(A) , No pain 16:05:46 82 11 99 15.6 158/90(125) NSR 0 (11) 10(A) , No pain 16:10:00 83 18 100 37.9 157/95(137) NSR 0 (11) 10(A) , No pain 16:14:20 79 11 99 0 147/86(124) NSR 0 (11) 10(A) , No pain 16:18:42 78 8 99 36.4 143/86(127) NSR 0 (11) 10(A) , No pain Medications Time Medication Route Dose Verified Delivered Reason Notes Effe ctiveness by by 15:35:23 Heparin Flush added 2 M J Long M J Long used for Bag to bags MD QUIROZ procedure (1000units/500ml field NS) 15:35:37 Lidocaine 1% added 20ml M J Long M J Long for local to vial MD QUIROZ anesthetic field 15:51:15 Versed I.V. 1 mg M J Long Siri for MD Banegas RN sedation 15:51:27 Fentanyl I.V. 50 M J Long Siri for magdalene Banegas RN sedation 16:02:06 Versed I.V. 1 mg M J Long Siri for MD Banegas RN sedation 16:02:15 Fentanyl I.V. 50 M J Long Siri for mcg MD Bassam COLLINS sedation Procedure Log Time Note 15:12:03 Use device set IR Diagnostic 15:12:04 Tegaderm 4 x 4 (1626W) opened to sterile field. 15:12:05 Sterile Angiographic Pack opened to sterile field. 15:12:06 Bag Decanter (2001S) opened to sterile field. 15:26:21 Siri Banegas RN sent for patient. Start room use. 15:26:22 Time tracking: Regular hours (M-F 7:00 - 5:00) 15:26:27 Patient received from Outpatients to IR Alert and oriented. Tansferred to table in Supine position. 15:26:32 Signed procedure consent form obtained from patient. 15:26:35 Warm blankets applied, and fidelia hugger turned on for patient comfort. 15:26:36 Correct patient and procedure confirmed by team. 15:27:02 ECG and BP/O2 sat monitors applied to patient. 15:27:03 - 15:27:10 H&P Date Dictated: 10/03/2020 H&P Addendum completed by physician on day of procedure. (MUST COMPLETE FOR ALL OUTPATIENTS). 15:27:12 Pre-procedure instructions explained to patient. 15:27:12 Pre-op teaching completed and patient verbalized understanding. 15:27:16 Patient NPO since Midnight. 15:27:23 Patient allergic to MICHELLE inhibitors 15:27:25 Is the patient allergic to Iodine/contrast media? No. 15:27:33 Is patient on blood thinner?Yes 15:28:27 Patient diabetic? No. 15:28:29 - 15:28:31 ----Pre-sedation anethsthesia assessment.---- 15:28:33 Previous problem with sedation/anesthesia? No ? 15:28:35 Snore? Yes 15:28:36 Sleep apnea? No 15:28:37 Deviated septum? No 15:28:38 Opens mouth fully? Yes 15:28:40 Sticks out tongue? Yes 15:28:46 Airway obstruction? Yes heart disease 15:28:50 Dentures? No ? 15:28:52 - 15:29:05 IV patent on arrival in left wrist with 0.9% NaCl at O. 15:29:19 Right Internal jugular was prepped with chlora-prep and draped in sterile fashion. 15:29:20 Alarms reviewed by Rita Edwards 15:29:20 Sharps counted by scrub and verified by RClaudy 15:29:21 - 15:34:25 Vital chart was started 15:34:58 Baseline sample Acquired. 15:35:23 Heparin Flush Bag (1000units/500ml NS) 2 bags added to field was administered by Frank Young MD; used for procedure; Verbal order read back and verified. 15:35:37 Lidocaine 1% 20ml vial added to field was administered by Frank Young MD; for local anesthetic; Verbal order read back and verified. 15:43:24 SNARE Filter Retreival Kit (SRK20) opened to sterile field. 15:43:24 MICROPUNCTURE 4FR CytoSolv ([id number]) opened to sterile field. 15:43:25 DOC Extension wire (38119) opened to sterile field. 15:50:39 Physician arrived 15:50:40 --------ALL STOP TIME OUT------ 15:50:41 Final Timeout: patient, procedure, and site verified with staff and physician. All members of the team are in agreement. 15:50:47 Right neck site verified by team. 15:50:51 3b) 30-44 Moderately reduced kidney function. 15:50:56 Sedation plan: IV Moderate Sedation Medication:Versed, Fentanyl 15:50:57 Procedure started. 15:50:57 Full Disclosure recording started 15:51:15 Versed 1 mg I.V. was administered by Siri Banegas RN; for sedation; Verbal order read back and verified. 15:51:27 Fentanyl 50 mcg I.V. was administered by Siri Banegas RN; for sedation ; Verbal order read back and verified. 15:57:32 DILATOR, VESSEL 8/20 opened to sterile field. 15:57:33 DILATOR, VESSEL 11/20 opened to sterile field. 15:57:59 Local anesthetic to right IJ vein with Lidocaine 1% by Frank Young MD.INITIAL ACCESS ONLY 15:58:01 Access obtained with 4Fr micropunture. 15:59:51 DILATOR, VESSEL 14/20 opened to sterile field. 16:00:01 SNARE Filter Retreival Kit (SRK20) opened to sterile field. 16:02:06 Versed 1 mg I.V. was administered by Siri Banegas RN; for sedation; Verbal order read back and verified. 16:02:15 Fentanyl 50 mcg I.V. was administered by Siri Banegas RN; for sedation ; Verbal order read back and verified. 16:10:02 Procedure ended.(Physican Out) 16:11:01 Fluoroscopy time 04.70 minutes. 16:11:05 Dose Area Product 303 mGy/cm. 16:11:11 Contrast amount:Isovue 300 20ml. 16:11:12 Sharps counted by scrub and verified by R.N. 16:11:15 Insertion/operative site no bleeding no hematoma. 16:11:21 Post-op/insertion site Right Jugular vein dressed using a 4 x 4 and Tegaderm. 16:11:29 Procedure and supply charges have been captured, reviewed, submitted an d are correct. 16:11:31 Post procedure instruction explained to patient.Patient verbalizes understanding. 16:15:16 Patient transfered to Outpatients with Stretcher. 16:20:08 Procedure ended. 16:20:08 Full Disclosure recording stopped 16:20:12 End room use (Document Last) 16:20:40 Vital chart was stopped Device Usage Item Name Manufacture Quantity Catalog Hospital Part Current Minima l Lot# / Number Charge Number Stock Stock Serial# Code Tegaderm 4 x 3M 1 1626W [id number] 5 4 (1626W) Sterile Cardinal 1 [id number] 287035 502607 5 Angiographic Health Pack Bag Decanter [employer] 1 230770 28574 768555 5 () [employer] SNARE Filter Bard 2 SRK20 [id number] 392090 5 Retreival Kit (SRK20) MICROPUNCTURE [employer] 1 [id number] 071114 481503 990017 5 4FR CytoSolv ([id number]) DOC Extension Huang 1 96268 505979 042280 275845 5 wire (90533) Vascular DILATOR, [employer] 1 Q84683 575710 89947 074020 5 VESSEL 8/20 DILATOR, [employer] 1 [id number] 512706 89976 296578 5 VESSEL 11/20 DILATOR, [employer] 1 [id number] 585647 855524 613411 5 VESSEL 14/20 Signature Audit [place] Stage Time Signature Unsigned Intra-Procedure 10/03/2020 ROCHELLE LAO RT 4:20:36 PM (R) [id number] [place] [address]
[~2020-10-03 11:41] MED LIST changes: +DECADRON4 MG PO; +MUCINEX600 MG PO; +SINGULAIR10 MG PO; +SYMBICORT 16010.2 GM INH; +VITAMIN C PO; +Vitamin D PO
[2020-10-03] MEDS ORDERED: NEXIUM20 MG PO (12:34)
[2020-10-03 12:36] LABS: BASOPHILS 0.2 % (0-2); EOSINOPHILS 2.5 % (0-7); HEMATOCRIT 45.7 % (42.0-54.0); HEMOGLOBIN 15.6 g/dL (13.5-17.5); LYMPHOCYTE ABS# 1.43 10x3/uL (1.32-3.57); LYMPHOCYTES 32.2 % (15-50); MCH 33.2 pg (26.0-34.0); MCHC 34.1 g/dL (31.0-37.0); MCV 97.2 fL (80.0-100.0); MEAN PLATELET VOLUME 10.6 fL (7.4-10.4); NEUTROPHILS 54.1 % (40-80); PLATELET COUNT 143 10x3/uL (130-400); RDW 13.3 % (11.5-14.5); WBC 4.4 10x3/uL (4.8-10.8)
[2020-10-03] MEDS ORDERED: COREG6.25 MG (12:36)
[2020-10-03 12:44] LABS: ANION GAP 14.2 mmol/L (8-16); CALCIUM 9.7 mg/dL (8.5-10.1); CARBON DIOXIDE 26.7 mmol/L (21.0-32.0); CREATININE - SERUM 1.8 mg/dL (0.6-1.3); POTASSIUM - SERUM 3.9 mmol/L (3.5-5.1)
[2020-10-03 12:46] LABS: APTT 28.2 SECONDS (22.8-39.4); INR 1.08 (0.85-1.17)
[2020-10-03 12:48] VITALS: BP 134/75; Ht 182.9 cm; Wt 114.1 kg
--- NOTE | 2020-10-03 17:55 | NUR ---
1730 IV REMOVED AND INSTRUCTIONS GIVEN. TOLERATING LIQ. DENIES ANY PAIN AND NO SWELLING. DRESSING CDI
== END 2020-10-03 17:45 | disposition home or self-care (01) ==
LOC: D.RAD 11:41
PROVIDERS: ATTEND Radiology Vascular & Interventional Radiology
DX: Z86.718 Personal history of other venous thrombosis and embolism (principal); Z45.89 Encounter for adjustment and management of other implanted devices